=== PATIENT | female | born 2005 | race Caucasian/White ===

== ENCOUNTER 2025-03-04 20:21 | Emergency (ER) | payer SELFPAY ==
--- NOTE | ~2025-03-04 | CT_ITS ---
Non-contrast CT scan of the Abdomen and Pelvis Clinical indication: Right flank pain Technique: 2.5 mm axial scans were obtained through the abdomen and pelvis without intravenous or or al contrast. Dose reduction technique was used on this scan by utilizing automated exposure control a nd iterative reconstruction technique. The dose-length product (DLP) was 1465.81 mGy-cm. Findings: Images through the lung bases reveal no abnormalities. There is no evidence of renal or ureteral calculi. The kidneys and the ureters are nondilated. The liver, spleen, pancreas, gallbladder, and adrenals appear normal. There is no aortic aneurysm. There is no evidence of bowel obstruction. Images through the pelvis were performed. There is no evidence of ascites or lymphadenopathy. Urinary bladder unremarkable. No pelvic mass seen. Impression: No significant abnormality seen. Reviewed, dictated and finalized at [facility]. Impression: No significant abnormality seen.
[2025-03-04 20:30] VITALS: BP 150/100; PULSE 103; RESP 16; TEMP 36.5; O2SAT 99
[2025-03-05 00:30] VITALS: BP 125/70; PULSE 93; RESP 18; O2SAT 100
--- OUTSIDE RECORDS SUMMARY | 2025-03-05 00:37 | XMS_ITS | Continuity of Care Document ---
Author Organization [facility] Address [address] [place] [address] Phone Care Team Providers Care Master Planner Name Role Phone Bello PT, DPT, CHT, Magy Unavailable Unavailable Procedures Procedure Date HO w/o joints CF Advance Directives Directive Yes / No Effective Date File Name No Information Encounters Encounter Description Practice Location Reason(s) For Visit Diagnoses Date Provider Providers Copied on Encounter [facility], [facility], [place], [place], [id number], tel:[phone] [facility] No Information Bello Bhatti. . Referring Provider: Bekah Trejo, [address] [place] [address], [address]. tel:[phone] Family History Family Member Type Diagnosis Age At Onset No Information Payers Payer name Insurance type Covered alliance party ID Authoriza tion(s) Self Pay Full Charges Social History Type Description Quantity Date Captured Comments Sex Female Smoking Status No Information Chief Complaint And Reason For Visit No Information Reason For Referral Reason For Referral No Information History Of Present Illness Encounter Date Complaint History Of Prese nt Illness No Information Functional Status Date Functional Assessmen t No Information Instructions Date Instruction Additional Infor mation No Information Assessments Type Assessment Date No Information Patient Care Teams Name Effective Dates (start - stop) Status Members No Information
--- OUTSIDE RECORDS SUMMARY | 2025-03-05 00:37 | XMS_ITS | Encounter Summary ---
Author Organization [facility] Address [address] [place] [address] Care Team Providers Care Equine Vet Name Role Phone Levon Mitchell DO Primary Care Provider [phone] Encounter Details Date Type Department Care Team (Late st Contact Info) Description 06/28/2006 Orders Only [facility] Pediatrics - [address] [place] [address] [place] [address] Dominguez [address] [place] [phone] Social History Tobacco Use Types Packs/Day Years Used Date Smoking Tobacco: Never Assessed Comments Unknown Sex and Gender Information Value Date Recorded Sex Assigned at Not on file Legal Sex Female 4:46 AM AIRCONDITIONING ENGINEER Gender Identity Not on file Sexual Orientation Not on file documented as of this encounter Plan of Treatment Not on file documented as of this encounter Visit Diagnoses Not on filedocumented in this encounter Additional Health Concerns Infection Onset Date Last Indicated Resolved Time R/O COVID-19 08/21/2021 08/21/2021 08/22/2021 8:40 PM AIRCONDITIONING ENGINEER COVID-19 08/21/2021 08/21/2021 09/20/2021 1:16 AM AIRCONDITIONING ENGINEER documented as of this encounter Care Teams Equine Vet Relationship Specialty Start Date End Date Levon Mitchell DO PCP - General Pediatrics 12/22/09 documented as of this encounter
--- OUTSIDE RECORDS SUMMARY | 2025-03-05 00:38 | XMS_ITS | Encounter Summary ---
Author Organization [facility] Address [address] [place] [address] Care Team Providers Care Product Test Engineer Name Role Phone Levon Mitchell DO Primary Care Provider [phone] Encounter Details Date Type Department Care Team (Latest Contact Info) Description 09/30/2006 Outpatient Historical [facility] Pediatrics - [place] [address] [place] [address] [place] [address] [place] [address] Dominguez [address] [place] [phone] Impetigo (Primary Dx) Social History Tobacco Use Types Packs/Day Years Used Date Smoking Tobacco: Never Assessed Comments Unknown Sex and Gender Information Value Date Recorded Sex Assigned at Not on file Legal Sex Female 4:46 AM FISHING TOOL OPERATOR Gender Identity Not on file Sexual Orientation Not on file documented as of this encounter Plan of Treatment Not on file documented as of this encounter Visit Diagnoses Diagnosis Impetigo- Primary documented in this encounter Additional Health Concerns Infection Onset Date Last Indicated Resolved Time R/O COVID-19 08/21/2021 08/21/2021 08/22/2021 8:40 PM FISHING TOOL OPERATOR COVID-19 08/21/2021 08/21/2021 09/20/2021 1:16 AM FISHING TOOL OPERATOR documented as of this encounter Care Teams Product Test Engineer Relationship Specialty Start Date End Date Levon Mitchell DO PCP - General Pediatrics 12/22/09 documented as of this encounter
--- OUTSIDE RECORDS SUMMARY | 2025-03-05 00:38 | XMS_ITS | Encounter Summary ---
Author Organization [facility] Address [address] [place] [address] Care Team Providers Care Special Education Tutor Name Role Phone KarenLevon julio Primary Care Provider [phone] Encounter Details Date Type Department Care Team (Late st Contact Info) Description 09/30/2006 Orders Only [facility] Pediatrics - [address] [place] [address] Cinthya Piper NP NO ADDRESS ON FILE Social History Tobacco Use Types Packs/Day Years Used Date Smoking Tobacco: Never Assessed Comments Unknown Sex and Gender Information Value Date Recorded Sex Assigned at Not on file Legal Sex Female 4:46 AM SERVICES CLERK Gender Identity Not on file Sexual Orientation Not on file documented as of this encounter Progress Notes * Cinthya Piper NP - 01/09/2008 6:48 PM CDT PATIENT'S AGE: 1 yrs, 10 mths, 3 wks, 0 days VITALS: TEMP: 98??f Axillary PULSE: 106 Apical, Regular RESPIRATIONS: 18. WEIGHT: 9.0435 kg NURSE NAME: Caitie Clayton M //EDWIN SORTO ACCOMPANIED BY: Mother. HISTORY PROVIDED BY: Mother. ALLERGIES: CURRENT ALLERGY LIST: NKDA MEDICATIONS: RN/EDWIN reviewed medications. ZANTAC CHIEF COMPLAINT: The child is here for the following. RASH ON BACK NEAR UPPER DIAPER AREA, RASH ALSO ON THE DIAPER AREA HISTORY: Has a history of eczema that she uses Eucerin for and has a rash on her buttocks that won't clear. No oozing from the rash. She is constantly itching. Now has a new rash in her diaper area, closer to her vaginal area. PHYSICAL EXAM: CONSTITUTIONAL: GENERAL APPEARANCE: Healthy appearing, alert patient, normally nourished, developmentally normal and in no acute distress., not toxic EYES: CONJUNCTIVA/LIDS: Conjunctivae and lids appear normal. SKIN: multiple scabbed plaques on her upper buttocks, all in various stages of healing. 3 yellowishcrusty lesions. Pale red well circumscribed rash to both sides of her lower diaper area. OFFICE PROCEDURE: CULTURES: A skin culture was sent to the lab. ASSESSMENT/PLAN: [id number] MEDICATIONS: AUGMENTIN ORAL SUSPENSION WHEN RECONSTITUTED 400-57 MG/5ML, 1/2 tsp po bid x10d, 50 Dispensed, 10 Duration/Days Supply, status: NEW PRESCRIPTION, 09/30/2006. BACTROBAN EXTERNAL OINTMENT 2 % GRAMS, apply to affected areas on buttocks tid prn, 30 Dispensed, status: NEW PRESCRIPTION, 09/30/2006. TRIAMCINOLONE ACETONIDE EXTERNAL OINTMENT 0.1 %, Please compound with aquaphhor to make a compound containing a final concentration of TAC 0.01%. Apply topically bid to affected skin. Dispens 1 lb., 1 Dispensed, status: NEW PRESCRIPTION, 09/30/2006. LAB ORDERS: Order number: [id number] Test Ordered: CULTURE, AEROBIC WOUND W/SMEAR 8992 PATIENT EDUCATION: Questions were allowed to stated satisfaction. RETURN VISIT/GUIDANCE: Instructed to:Take OTC meds as directed Call office if concerned or if child is no better Return if symptoms are not resolved. Advised to keep wound/area clean, advised to maintain good handwashing. Electronically Signed by: Cinthya Piper RN,CPNP on Saturday, September 30, 2006 Electronically Signed by: Levon Mitchell DO on Sunday, October 01, 2006 documented in this encounter Plan of Treatment Not on file documented as of this encounter Visit Diagnoses Not on filedocumented in this encounter Additional Health Concerns Infection Onset Date Last Indicated Resolved Time R/O COVID-19 08/21/2021 08/21/2021 08/22/2021 8:40 PM SERVICES CLERK COVID-19 08/21/2021 08/21/2021 09/20/2021 1:16 AM SERVICES CLERK documented as of this encounter Care Teams Special Education Tutor Relationship Specialty Start Date End Date Levon Mitchell DO PCP - General Pediatrics 12/22/09 documented as of this encounter
--- OUTSIDE RECORDS SUMMARY | 2025-03-05 00:38 | XMS_ITS | Encounter Summary ---
Author Organization [facility] Address [address] [place] [address] Care Team Providers Care Program Management Manager Name Role Phone Levon Mitchell DO Primary Care Provider [phone] Encounter Details Date Type Department Care Team (Late st Contact Info) Description 02/21/2006 Orders Only [facility] Pediatrics - [place] [address] [place] [address] [place] [address] [place] [address] Dominguez [address] [place] [phone] Social History Tobacco Use Types Packs/Day Years Used Date Smoking Tobacco: Never Assessed Comments Unknown Sex and Gender Information Value Date Recorded Sex Assigned at Not on file Legal Sex Female 4:46 AM BULL CHAIN OPERATOR Gender Identity Not on file Sexual Orientation Not on file documented as of this encounter Progress Notes * Levon Mitchell DO - 05/28/2008 9:46 AM CDT TIME:03:25 pm PATIENT`S HOME PHONE: PATIENT`S WORK PHONE: PATIENT`S INSURANCE: [employer] WHO TOOK THE CALL: Sara Tapia M PATIENT'S AGE: 1 yrs, 3 mths, 2 wks, 1 day GENERAL INFORMATION PCP: gr. PEREZ PHONE NUMBER: [phone] ext [phone] WHO CALLED: Patient`s father called. [facility] NUMBER: [phone] PROBLEMS: Requests refill zantac but would like script amt divided into 2 labeled bottles--one for hoem, and one for daycare. SECTION 1: RN/LOUVER DOOR ASSEMBLER RESPONSE: gorge 02/21/06 at 03:51 pm Called pharmacy at 02/21/06 at 03:51 pm. to sai. Requested 2 labeled bottles. MEDICATIONS: ZANTAC ORAL SYRUP 75 MG/5ML, 0.7ml po tid, 30 Duration/Days Supply, status: NEW PRESCRIPTION, 02/21/2006. Electronically Signed by: Levon Mitchell DO on February * Levon Mitchell DO - 05/28/2008 9:46 AM CDT TIME:04:11 pm PATIENT`S HOME PHONE: PATIENT`S WORK PHONE: PATIENT`S INSURANCE: [employer] WHO TOOK THE CALL: Marcel Galo L GENERAL INFORMATION PCP: berenice WHO CALLED: Pharmacy called. [facility] NUMBER: [phone] SECTION 1: REQUESTED ACTION ribtiffanie 02/21/06 at 04:12 pm: MEDICATION REQUEST: zantac syrup, 63 ml, last fill 01-17-06 documented in this encounter Plan of Treatment Not on file documented as of this encounter Visit Diagnoses Not on filedocumented in this encounter Additional Health Concerns Infection Onset Date Last Indicated Resolved Time R/O COVID-19 08/21/2021 08/21/2021 08/22/2021 8:40 PM BULL CHAIN OPERATOR COVID-19 08/21/2021 08/21/2021 09/20/2021 1:16 AM BULL CHAIN OPERATOR documented as of this encounter Care Teams Program Management Manager Relationship Specialty Start Date End Date Levon Mitchell DO PCP - General Pediatrics 12/22/09 documented as of this encounter
--- OUTSIDE RECORDS SUMMARY | 2025-03-05 00:38 | XMS_ITS | Encounter Summary ---
Author Organization [facility] Address [address] [facility] [address] Attn: Epic Prelude ADT [place] [address] Care Team Providers Care Burn Out Tender Lace Name Role Phone Levon Mitchell DO Primary Care Provider [phone] Encounter Details Date Type Department Care Team (Latest Contact Info) Description 12/09/2006 Orders Only Mireille Whitfield DO [address] [place] [address] Social History Tobacco Use Types Packs/Day Years Used Date Smoking Tobacco: Never Assessed Comments Unknown Sex and Gender Information Value Date Recorded Sex Assigned at Not on file Legal Sex Female 4:46 AM MISSION COORDINATOR Gender Identity Not on file Sexual Orientation Not on file documented as of this encounter Progress Notes * Mireille Whitfield DO - 01/08/2008 4:44 PM CDT PATIENT'S AGE: 1 yr, 1 mth, 0 wks, 1 day VITALS: TEMP: 99.1??f Axillary PULSE: 116 Apical, Regular RESPIRATIONS: 18. WEIGHT: 9.4124 kg NURSE NAME: Caitie Clayton M ACCOMPANIED BY: Father. HISTORY PROVIDED BY: Father. ALLERGIES: CURRENT ALLERGY LIST: NKDA MEDICATIONS: Patient is taking no medications at present. CHIEF COMPLAINT: COUGH, FEVER HISTORY: States on 12/05 pt had reddened, irritated eyes with some mucousy discharge--states eyes look a little better now. Past few days has had very runny nose and loose cough, which has gotten worse in past 24 hours. Temp today is 102.6. PHYSICAL EXAM: CONSTITUTIONAL: GENERAL APPEARANCE: Healthy appearing, alert patient, normally nourished, developmentally normal and in no acute distress. EYES: CONJUNCTIVA/LIDS: Conjunctivae and lids appear normal. PUPILS: Pupils equal and round. EARS, NOSE, MOUTH AND THROAT: EXTERNAL/EARS AND NOSE: Overall appearance normal without lesions or masses. EARS: BULGING TYMPANIC MEMBRANES NOTED BILATERALLY, EFFUSION PRESENT BILATERALLY, TYMPANIC MEMBRANES INFLAMED BILATERALLY, REDUCED LIGHT REFLEX. LANDMARKS PARTIALLY OBSCURED IN THE EARS BILATERALLY. NOSE (AND SINUS): No abnormality of the nose or sinuses is noted. ORAL: Inspection of gums, lips, palate, and dentition normal. No lesions or masses. Oral mucosa unremarkable with non-inflamed posterior pharynx. NECK: No lymphadenopathy noted. Supple. RESPIRATORY: coarse and tight throughout. Retracting and tachypneic. After first neb much improved aeration. Still mild retracting and tachypnea. After orapred and 2nd neb retracting and tachypnea resolved with excellent aeration. CARDIOVASCULAR: CARDIAC: Regular rhythm with no murmurs, rubs, gallops, or abnormal heart sounds. GASTROINTESTINAL: ABDOMEN: Soft, non-tender, without masses. Bowel sound active. LIVER/SPLEEN/KIDNEY: No hepatosplenomegaly. SKIN: INSPECTION: Good color, no rashes, birthmarks or lesions noted on arms, chest or abdomen. NEUROLOGIC: GENERAL APPEARANCE: Negative meningeal signs. CRANIAL NERVES: stripper preliminary II-XII grossly intact. ASSESSMENT/PLAN: 382.00-OTITIS MEDIA ACUTE SUPPURATIVE MEDICATIONS: AUGMENTIN ES-600 ORAL SUSPENSION WHEN RECONSTITUTED 600-42.9 MG/5ML, 1/2 tsp po bid x 10d, 10 Duration/Days Supply, status: NEW PRESCRIPTION, 12/09/2006. 786.07-WHEEZING MEDICATIONS: ORAPRED ORAL SOLUTION 15 MG/5ML, 1 tsp po qd x 4d, 4 Duration/Days Supply, status: NEW PRESCRIPTION, 12/09/2006. ALBUTEROL SULFATE INHALATION NEBULIZATION SOLUTION (2.5 MG/3ML) 0.083% BOXES, 1 vial with neb q4h prn, 1 Dispensed, status: NEW PRESCRIPTION, 12/09/2006. Home neb ordered hanna Gee, order faxed to Felicia. [facility]. LAB ORDERS: Order number: [id number] Test Ordered: INJ-PREDENISOLONE ORAL 5MG [id number] Order number: [id number] Test Ordered: NEBULIZER TREATMENT 2 UNITS [id number] RETURN VISIT/GUIDANCE: Cough and congestion instructions given, Pain relief discussed, advised to maintain good handwashing. Patient instructed to return in 3 days if not better. Patient is instructed to call with concerns or changes in condition. Patient is instructed to call with concerns or worries about condition. Electronically Signed by: Mireille Whitfield DO on Friday, December 15, 2006 * Mireille Whitfield DO - 01/08/2008 4:44 PM CDT SPECIALIST REFERRAL REQUEST DATE: DEC 09, 2006 Note created by: Renu Covington M 05:45 p Patient Name : JESSICA WILLIAM [address]: [address] [place] [address] D.O.B: 2005 SSN: Parent/Guardian if applicable: Patient Insurance: Policy#: Group #: Best To Call : work [phone] or cell [phone] Best Time to Call : morning or afternoon May We Leave Message At That Number : YES, LEAVE MESSAGE. Referring to: ENT ENT - [facility]. any [facility]'s ENT is fine. PLEASE SCHEDULE FOR: office visit Reason for referral: OM PATIENT DIAGNOSIS: . 382.00-OTITIS MEDIA ACUTE SUPPURATIVE CURRENT MEDICATION LIST: ZANTAC ORAL SYRUP 75 MG/5ML, 0.5ml po tid ZANTAC ORAL SYRUP 75 MG/5ML, 0.5ml po tid ZANTAC ORAL SYRUP 75 MG/5ML, 0.7ml po tid ZANTAC ORAL SYRUP 75 MG/5ML, 0.7ml po tid ZANTAC ORAL SYRUP 75 MG/5ML, 1ml po tid ZANTAC ORAL SYRUP 75 MG/5ML, 1ml po tid ZANTAC ORAL SYRUP 75 MG/5ML, 1ml po tid AUGMENTIN ES-600 ORAL SUSPENSION WHEN RECONSTITUTED 600-42.9 MG/5ML, 1/2 tsp po bid x 10d NYSTATIN EXTERNAL OINTMENT 839201 UNIT/GM, use topically qid prn with diaper changes AUGMENTIN ORAL SUSPENSION WHEN RECONSTITUTED 400-57 MG/5ML, 1/2 tsp po bid x10d BACTROBAN EXTERNAL OINTMENT 2 %, apply to affected areas on buttocks tid prn TRIAMCINOLONE ACETONIDE EXTERNAL OINTMENT 0.1 %, Please compound with aquaphhor to make a compound containing a final concentration of TAC 0.01%. Apply topically bid to affected skin. Dispens 1 lb. AURALGAN OTIC SOLUTION, 4 drops in painful ears every 4 hours as needed OMNICEF ORAL SUSPENSION WHEN RECONSTITUTED 125 MG/5ML, 1 tsp po q day for 10 days ORAPRED ORAL SOLUTION 15 MG/5ML, 1 tsp po qd x 4d ALBUTEROL SULFATE INHALATION NEBULIZATION SOLUTION (2.5 MG/3ML) 0.083%, 1 vial with neb q4h prn AUGMENTIN ES-600 ORAL SUSPENSION WHEN RECONSTITUTED 600-42.9 MG/5ML, 1/2 tsp po bid x 10d CURRENT ALLERGY LIST: NKDA ORDERING PHYSICIAN : MIREILLE WHITFIELD DO PRIORITY OF REFERRAL: 2-7 DAYS. PLease send all office notes and abx hx relating to OMs for the past 2 yrs. OFFICE TAPE FOLDING MACHINE OPERATOR & PHONE: Renu Covington M FOR SCHEDULING USE ONLY FIRST ATTEMPT Date:DEC 10, 2006 Mary Vásquez J 09:06 a Spoke with Patient.' s dad at work and did a 3way APPOINTMENT DATE : 12/19/2006 ( @ 11:[address] Devine) December 10, 2006 09:06 am Referral number: none needed [email or web address] 12/10/2006 09:07 a Referral/Pre-auth communicated: Referral faxed to fax number. [phone] documented in this encounter Plan of Treatment Not on file documented as of this encounter Visit Diagnoses Not on filedocumented in this encounter Additional Health Concerns Infection Onset Date Last Indicated Resolved Time R/O COVID-08/21/2021 08/21/2021 08/22/2021 8:40 PM MISSION COORDINATOR COVID-08/21/2021 08/21/2021 09/20/2021 1:16 AM MISSION COORDINATOR documented as of this encounter Care Teams Burn Out Tender Lace Relationship Specialty Start Date End Date Levon Mitchell DO PCP - General Pediatrics 12/22/09 documented as of this encounter
--- OUTSIDE RECORDS SUMMARY | 2025-03-05 00:38 | XMS_ITS | Encounter Summary ---
Author Organization [facility] Address [address] [place] [address] Care Team Providers Care Parliamentary Archivist Name Role Phone Levon Mitchell DO Primary Care Provider [phone] Encounter Details Date Type Department Care Team (Late st Contact Info) Description 01/17/2006 Outpatient Historical [facility] Pediatrics - [address] [place] [address] [place] [address] Doming[address] [place] [phone] Social History Tobacco Use Types Packs/Day Years Used Date Smoking Tobacco: Never Assessed Comments Unknown Sex and Gender Information Value Date Recorded Sex Assigned at Not on file Legal Sex Female 4:46 AM GRADUATE CIVIL ENGINEER Gender Identity Not on file Sexual Orientation Not on file documented as of this encounter Plan of Treatment Not on file documented as of this encounter Visit Diagnoses Not on filedocumented in this encounter Additional Health Concerns Infection Onset Date Last Indicated Resolved Time R/O COVID-19 08/21/2021 08/21/2021 08/22/2021 8:40 PM GRADUATE CIVIL ENGINEER COVID-19 08/21/2021 08/21/2021 09/20/2021 1:16 AM GRADUATE CIVIL ENGINEER documented as of this encounter Care Teams Parliamentary Archivist Relationship Specialty Start Date End Date Levon Mitchell DO PCP - General Pediatrics 12/22/09 documented as of this encounter
--- OUTSIDE RECORDS SUMMARY | 2025-03-05 00:38 | XMS_ITS | Encounter Summary ---
Author Organization [facility] Address [address] [facility] Attn: Epic Prelude ADT [place] [address] Care Team Providers Care Contract Administrator Name Role Phone KarenLevon julio DO Primary Care Provider [phone] Encounter Details Date Type Department Care Team (Latest Contact Info) Description 12/11/2006 Orders Only Mireille Mackay DO [address] [facility] [address] [place] [address] Social History Tobacco Use Types Packs/Day Years Used Date Smoking Tobacco: Never Assessed Comments Unknown Sex and Gender Information Value Date Recorded Sex Assigned at Not on file Legal Sex Female 4:46 AM NEURODIAGNOSTIC TECHNOLOGIST Gender Identity Not on file Sexual Orientation Not on file documented as of this encounter Progress Notes * Mireille Mackay DO - 01/08/2008 5:37 PM CDT TIME:10:15 am PATIENT`S HOME PHONE: PATIENT`S WORK PHONE: PATIENT`S INSURANCE: [employer] WHO TOOK THE CALL: Janie Agrawal L PATIENT'S AGE: 1 yr, 1 mth, 0 wks, 3 days GENERAL INFORMATION PCP: gr. PEREZ PHONE NUMBER: [phone] WHO CALLED: Patient`s mother called.amie CURRENT ALLERGY LIST: [facility] NUMBER: [phone]/gibran PROBLEMS: OV 12/09 and treated for OM/wheeze with antibiotic, oral steroid and neb txs. States pt isdoing 100% better. Today sees [place] cheesy patches inside pt's lips and cheeks, that don't wipe off with wet warm washcloth. Daycare states pt has thrush. Is taking feeds well. Wants note for daycare stating Ok for pt to be there today. SECTION 1: REQUESTED ACTION: abby 12/11/06 at 10:16 am NURSE PLEASE CALL: Patient requests a call from nurse. RN/ROLL SCALE WORKER RESPONSE: [facility] 12/11/06 at 11:22 am b/s 11 thrush protocol reviewed. Will call out script for oral nystatin. Will check with about note for daycare-- b/s 11 doesn't address if ok for pt to be at daycare today-- note ok?? DOCTOR`S RESPONSE: [facility] 12/11/06 at 11:35 am As long as protocol followed (cleaning,etc) can be at daycare. SECTION 2: RN/ROLL SCALE WORKER RESPONSE: gorge 12/11/06 at 11:40 am mom notified of above. Note faxed to daycare Called pharmacy at 12/11/06 at 11:47 am. [place] MEDICATIONS: NYSTATIN MOUTH/THROAT SUSPENSION 070469 UNIT/ML, 1 ml ea side of mouth qid, 60 Dispensed, status: NEW PRESCRIPTION, 12/11/2006. Electronically Signed by: Myrtle Felix on Monday, December 11, 2006 documented in this encounter Plan of Treatment Not on file documented as of this encounter Visit Diagnoses Not on filedocumented in this encounter Additional Health Concerns Infection Onset Date Last Indicated Resolved Time R/O COVID-19 08/21/2021 08/21/2021 08/22/2021 8:40 PM NEURODIAGNOSTIC TECHNOLOGIST COVID-19 08/21/2021 08/21/2021 09/20/2021 1:16 AM NEURODIAGNOSTIC TECHNOLOGIST documented as of this encounter Care Teams Contract Administrator Relationship Specialty Start Date End Date Levon Mitchell DO PCP - General Pediatrics 12/22/09 documented as of this encounter
--- OUTSIDE RECORDS SUMMARY | 2025-03-05 00:38 | XMS_ITS | Encounter Summary ---
Author Organization [facility] Address [address] [place] [address] Care Team Providers Care Editing Internship Name Role Phone Levon Mitchell DO Primary Care Provider [phone] Encounter Details Date Type Department Care Team (Late st Contact Info) Description 03/11/2007 Orders Only [facility] Pediatrics - [place] [address] [place] [address] [place] [address] [place] [address] Dominguez [address] [place] [phone] Social History Tobacco Use Types Packs/Day Years Used Date Smoking Tobacco: Never Assessed Comments Unknown Sex and Gender Information Value Date Recorded Sex Assigned at Not on file Legal Sex Female 4:46 AM MACHINE CLERICAL VERIFIER Gender Identity Not on file Sexual Orientation Not on file documented as of this encounter Progress Notes * Levon Mitchell DO - 01/07/2008 12:31 PM CDT TIME:08:42 am PATIENT`S HOME PHONE: PATIENT`S WORK PHONE: PATIENT`S INSURANCE: KAVEH WHO TOOK THE CALL: Dora Tejada A PATIENT'S AGE: 1 yr, 4 mths, 0 wks, 2 days GENERAL INFORMATION PCP: [id number]. ALTERNATIVE PHONE NUMBER: [phone] #[phone] WHO CALLED: Patient`s father called.[facility] NUMBER: [phone] [facility] PROBLEMS: Was on zantac for GERD until 06/24, weaned off and was doing well without it. APpears to be teething now, drooling and chewing on things. Yesterday dad noticed she spit up a little and she cried after it and made face like she bit into sour lemon and tried to wipe it off her tongue, crabby all night until dad gave her 1 tsp of mylanta, restless sleep all night. NO vomiting or diarrhea, afeb. No cold sx, no ear tug. Dad wonders if needs to restart zantac. SECTION 1: REQUESTED ACTION: aurelio 03/11/07 at 08:43 am NURSE PLEASE CALL: Patient requests a call from nurse. RN/PIPE FITTER STREET SERVICE RESPONSE: cameron 03/11/07 at 08:55 am Will check with and c/b ? DOCTOR`S RESPONSE: savannah 03/11/07 at 09:01 am ok to try SECTION 2: RN/PIPE FITTER STREET SERVICE RESPONSE: cameron 03/11/07 at 09:16 am Left message on patient`s recorder or with a family member 03/11/2007 at 09:16 am. SECTION 3: RN/PIPE FITTER STREET SERVICE RESPONSE: cameron 03/11/07 at 09:54 am Dad notified of above, to c/b if not improving. Also reviewed protocol for BS11 teething. Called pharmacy at 03/11/07 at 09:57 am. Rx called to [facility] MEDICATIONS: ZANTAC ORAL SYRUP 75 MG/5ML, 1ml po tid, 2 Fills, 30 Duration/Days Supply, status: NEW PRESCRIPTION, 03/11/2007. Electronically Signed by: Renu Covington on Sunday, March 11, 2007 documented in this encounter Plan of Treatment Not on file documented as of this encounter Visit Diagnoses Not on filedocumented in this encounter Additional Health Concerns Infection Onset Date Last Indicated Resolved Time R/O COVID-19 08/21/2021 08/21/2021 08/22/2021 8:40 PM MACHINE CLERICAL VERIFIER COVID-19 08/21/2021 08/21/2021 09/20/2021 1:16 AM MACHINE CLERICAL VERIFIER documented as of this encounter Care Teams Editing Internship Relationship Specialty Start Date End Date Levon Mitchell DO PCP - General Pediatrics 12/22/09 documented as of this encounter
--- OUTSIDE RECORDS SUMMARY | 2025-03-05 00:38 | XMS_ITS | Encounter Summary ---
Author Organization [facility] Address [address] [place] [address] Care Team Providers Care Green End Man Name Role Phone Levon Mitchell DO Primary Care Provider [phone] Encounter Details Date Type Department Care Team (Late st Contact Info) Description 01/17/2006 Outpatient Historical [facility] Pediatrics - [address] [place] [address] [place] [address] Dominguez [address] [place] [phone] Social History Tobacco Use Types Packs/Day Years Used Date Smoking Tobacco: Never Assessed Comments Unknown Sex and Gender Information Value Date Recorded Sex Assigned at Not on file Legal Sex Female 4:46 AM PLOW SHAKER Gender Identity Not on file Sexual Orientation Not on file documented as of this encounter Plan of Treatment Not on file documented as of this encounter Visit Diagnoses Not on filedocumented in this encounter Additional Health Concerns Infection Onset Date Last Indicated Resolved Time R/O COVID-19 08/21/2021 08/21/2021 08/22/2021 8:40 PM PLOW SHAKER COVID-19 08/21/2021 08/21/2021 09/20/2021 1:16 AM PLOW SHAKER documented as of this encounter Care Teams Green End Man Relationship Specialty Start Date End Date Levon Mitchell DO PCP - General Pediatrics 12/22/09 documented as of this encounter
--- OUTSIDE RECORDS SUMMARY | 2025-03-05 00:38 | XMS_ITS | Encounter Summary ---
Author Organization [facility] Address [address] [place] [address] Care Team Providers Care Static Balancer Name Role Phone Levon Mitchell DO Primary Care Provider [phone] Encounter Details Date Type Department Care Team (Late st Contact Info) Description 07/19/2006 Outpatient Historical [facility] Pediatrics - [address] [place] [address] [place] [address] Dominguez [address] [place] [phone] Social History Tobacco Use Types Packs/Day Years Used Date Smoking Tobacco: Never Assessed Comments Unknown Sex and Gender Information Value Date Recorded Sex Assigned at Not on file Legal Sex Female 4:46 AM GLASS OR MIRROR INSPECTOR Gender Identity Not on file Sexual Orientation Not on file documented as of this encounter Plan of Treatment Not on file documented as of this encounter Visit Diagnoses Not on filedocumented in this encounter Additional Health Concerns Infection Onset Date Last Indicated Resolved Time R/O COVID-19 08/21/2021 08/21/2021 08/22/2021 8:40 PM GLASS OR MIRROR INSPECTOR COVID-19 08/21/2021 08/21/2021 09/20/2021 1:16 AM GLASS OR MIRROR INSPECTOR documented as of this encounter Care Teams Static Balancer Relationship Specialty Start Date End Date Levon Mitchell DO PCP - General Pediatrics 12/22/09 documented as of this encounter
--- OUTSIDE RECORDS SUMMARY | 2025-03-05 00:38 | XMS_ITS | Encounter Summary ---
Author Organization [facility] Address [address] [place] [address] Care Team Providers Care Traffic Engineer Name Role Phone Levon Mitchell DO Primary Care Provider [phone] Encounter Details Date Type Department Care Team (Late st Contact Info) Description 12/02/2006 Outpatient Historical [facility] Pediatrics - [address] [place] [address] [place] [address] Dominguez [address] [place] [phone] Social History Tobacco Use Types Packs/Day Years Used Date Smoking Tobacco: Never Assessed Comments Unknown Sex and Gender Information Value Date Recorded Sex Assigned at Not on file Legal Sex Female 4:46 AM OCCUPATIONAL THERAPIST'S ASSISTANT Gender Identity Not on file Sexual Orientation Not on file documented as of this encounter Plan of Treatment Not on file documented as of this encounter Visit Diagnoses Not on filedocumented in this encounter Additional Health Concerns Infection Onset Date Last Indicated Resolved Time R/O COVID-19 08/21/2021 08/21/2021 08/22/2021 8:40 PM OCCUPATIONAL THERAPIST'S ASSISTANT COVID-19 08/21/2021 08/21/2021 09/20/2021 1:16 AM OCCUPATIONAL THERAPIST'S ASSISTANT documented as of this encounter Care Teams Traffic Engineer Relationship Specialty Start Date End Date Levon Mitchell DO PCP - General Pediatrics 12/22/09 documented as of this encounter
--- OUTSIDE RECORDS SUMMARY | 2025-03-05 00:38 | XMS_ITS | Encounter Summary ---
Author Organization [facility] Address [address] [place] [address] Care Team Providers Care Rice Field Worker Name Role Phone Levon Mitchell DO Primary Care Provider [phone] Encounter Details Date Type Department Care Team (Late st Contact Info) Description 10/01/2007 Outpatient Historical [facility] Pediatrics - [place] [address] [place] [address] [place] [address] Chavez Renteria MD [address] [phone] Social History Tobacco Use Types Packs/Day Years Used Date Smoking Tobacco: Never Assessed Comments Unknown Sex and Gender Information Value Date Recorded Sex Assigned at Not on file Legal Sex Female 4:46 AM SHUTTLE HAND Gender Identity Not on file Sexual Orientation Not on file documented as of this encounter Plan of Treatment Not on file documented as of this encounter Visit Diagnoses Not on filedocumented in this encounter Additional Health Concerns Infection Onset Date Last Indicated Resolved Time R/O COVID-19 08/21/2021 08/21/2021 08/22/2021 8:40 PM SHUTTLE HAND COVID-19 08/21/2021 08/21/2021 09/20/2021 1:16 AM SHUTTLE HAND documented as of this encounter Care Teams Rice Field Worker Relationship Specialty Start Date End Date Levon Mitchell DO PCP - General Pediatrics 12/22/09 documented as of this encounter
--- OUTSIDE RECORDS SUMMARY | 2025-03-05 00:38 | XMS_ITS | Encounter Summary ---
Author Organization [facility] Address [address] [place] [address] Care Team Providers Care Business Machines Teacher Name Role Phone Levon Mitchell DO Primary Care Provider [phone] Encounter Details Date Type Department Care Team (Late st Contact Info) Description 12/09/2006 Outpatient Historical [facility] Pediatrics - [place] [address] [facility] [place] [address] Mireille Mackay DO [address] [facility] [address] [place] [address] Social History Tobacco Use Types Packs/Day Years Used Date Smoking Tobacco: Never Assessed Comments Unknown Sex and Gender Information Value Date Recorded Sex Assigned at Not on file Legal Sex Female 4:46 AM LABORER DAIRY FARM Gender Identity Not on file Sexual Orientation Not on file documented as of this encounter Plan of Treatment Not on file documented as of this encounter Visit Diagnoses Not on filedocumented in this encounter Additional Health Concerns Infection Onset Date Last Indicated Resolved Time R/O COVID-19 08/21/2021 08/21/2021 08/22/2021 8:40 PM LABORER DAIRY FARM COVID-19 08/21/2021 08/21/2021 09/20/2021 1:16 AM LABORER DAIRY FARM documented as of this encounter Care Teams Business Machines Teacher Relationship Specialty Start Date End Date Levon Mitchell DO PCP - General Pediatrics 12/22/09 documented as of this encounter
--- OUTSIDE RECORDS SUMMARY | 2025-03-05 00:38 | XMS_ITS | Encounter Summary ---
Author Organization [employer] [facility] Address [address] [place] [address] Care Team Providers Care Warehouse Production Worker Name Role Phone KamalaLevon arango Primary Care Provider [phone] Encounter Details Date Type Department Care Team (Late st Contact Info) Description 01/21/2006 Emergency [facility] Breanna Allen MD [address] [facility] [place] [address] Er, Authorized P NO ADDRESS ON FILE Fever (Primary Dx) Social History Tobacco Use Types Packs/Day Years Used Date Smoking Tobacco: Never Assessed Comments Unknown Sex and Gender Information Value Date Recorded Sex Assigned at Not on file Legal Sex Female 4:46 AM MAJOR CASE DETECTIVE Gender Identity Not on file Sexual Orientation Not on file documented as of this encounter Plan of Treatment Not on file documented as of this encounter Procedures Procedure Name Priority Date/Time Associated Diagnosis Comments CBC WITH DIFFERENTIAL Routine 01/21/2006 5:25 PM CDT CBC WITH DIFFERENTIAL Routine 01/21/2006 5:25 PM CDT CBC WITH DIFFERENTIAL Routine 01/21/2006 5:25 PM CDT documented in this encounter Results * (ABNORMAL) CBC WITH DIFFERENTIAL (01/21/2006 5:25 PM CDT) NEUTROPHIL ABSOLUTE 1.21 K/uL INTERFACE SYSTEM LYMPHOCYTE ABSOLUTE 9.13 K/uL INTERFACE SYSTEM MONOCYTE ABSOLUTE 0.44 K/uL INTERFACE SYSTEM EOSINOPHIL ABSOLUTE 0.22 K/uL INTERFACE SYSTEM BASOPHILS ABSOLUTE 0.00 K/uL INTERFACE SYSTEM NEUTROPHILS, SEG 11(L) 16 - 60 % INTERFACE SYSTEM LYMPHOCYTES 78(H) 20 - 70 % INTERFAC E SYSTEM MONOCYTES 4 0 - 7 % INTERFACE SYSTEM EOSINOPHILS 2 0 - 8 % INTERFAC E SYSTEM BASOPHILS 0 0 - 1 % INTERFACE SYSTEM ATYPICAL LYMPHOCYTE 5 0 - 5 % INTERFACE SYSTEM PLATELET EST. Consistent w/ count Normal INTERFACE SYSTEM HYPOCHROMIA Slight INTERFAC E SYSTEM 01/21/2006 5:25 PM CDT Breanna Osborn MD HEMATOLOGY ORDERABLES Jaz l Result Performing Organization Address [facility] de Phone Number INTERFACE SYSTEM Refer to clinic/hospital department * CBC WITH DIFFERENTIAL (01/21/2006 5:25 PM CDT) Pathologist [facility] NRBC 0 <=0 /100 WBC INTERFACE SYSTEM 01/21/2006 5:25 PM CDT Breanna Osborn MD HEMATOLOGY ORDERABLES Jaz l Result Performing Organization Address [facility] de Phone Number INTERFACE SYSTEM Refer to clinic/hospital department * (ABNORMAL) CBC WITH DIFFERENTIAL (01/21/2006 5:25 PM CDT) Pathologist [facility] WBC 11.0 6.0 - 17.5 K/uL INTERFACE SYSTEM RBC 3.36 2.70 - 4.90 M/uL INTERFACE SYSTEM HEMOGLOBIN 9.8 9.0 - 14.0 g/dL INTERFACE SYSTEM HEMATOCRIT 28.3 28.0 - 42.0 % INTERFACE SYSTEM MCV 84.2 74.0 - 115.0 fL INTERFACE SYSTEM MCH 29.2(L) 33.0 - 39.0 pg INTERFACE SYSTEM MCHC 34.6 31.0 - 37.0 % INTERFACE SYSTEM RDW 14.0 11.5 - 14.5 % INTERFACE SYSTEM RDW-STDEV 43.5 37.1 - 48.7 fL INTERFACE SYSTEM PLATELETS 420(H) 140 - 350 K/uL INTERFACE SYSTEM MPV 10.3 9.3 - 12.4 fL INTERFACE SYSTEM 01/21/2006 5:25 PM CDT us Breanna Osborn MD HEMATOLOGY ORDERABLES aJz craig Result INTERFACE SYSTEM Refer to clinic/hospital department documented in this encounter Visit Diagnoses Diagnosis Fever and other physiologic disturbances of temperature regulation- Primary documented in this encounter Additional Health Concerns Infection Onset Date Last Indicated Resolved Time R/O COVID-19 08/21/2021 08/21/2021 08/22/2021 8:40 PM MAJOR CASE DETECTIVE COVID-19 08/21/2021 08/21/2021 09/20/2021 1:16 AM MAJOR CASE DETECTIVE documented as of this encounter Care Teams Warehouse Production Worker Relationship Specialty Start Date End Date Levon Mitchell DO PCP - General Pediatrics 12/22/09 documented as of this encounter
--- OUTSIDE RECORDS SUMMARY | 2025-03-05 00:38 | XMS_ITS | Clinical Summary ---
Author Organization [facility] Administrative Offices Address [address] [place] [address] Care Team Providers [employer] Name Role Phone Levon Mitchell Aria Primary Care Provider [phone] Allergies Active Allergy Reactions Criticality Noted Date Comments Cashew Nut Nausea and Vomiting,Swelling High 05/25/2022 Mom reports this happened when pt was 6 yrs old. No Known Allergies 2005 Nut Flavor Unknown 06/04/2023 [place]as Itching Low 05/25/2022 Throat itchy/tingling Medications cetirizine (ZYRTEC) 10 mg tablet Take 10 mg by mouth daily. Active aspirin-acetami nophen-caffeine (EXCEDRIN EXTRA STRENGTH) 250-250-65 mg Tablet Take 1 Tablet by mouth every 4 hours as needed for Headaches. Active azelastine-flut icasone 137-50 mcg/spray Borger, Non-Aerosol One squirt on each side of nose three times daily 2 Active EPINEPHrine (EPIPEN) 0.3 mg/0.3 mL Auto-Injector Inject 0.3 mL (0.3 mg) by intramuscular injection 1 time daily as needed for Anaphylaxis. 1 Each 2 Active albuterol sulfate HFA 90 mcg/actuation aerosol inhaler Take 2 Puffs by inhalation every 4 hours. 3 Active EPINEPHrine (EpiPen) 0.3 mg/0.3 mL Auto-Injector Inject 0.3 mL by intramuscular injection one time only. 3 Active diphenhydrAMINE (BENADRYL) 25 mg capsule Take 2 Capsules by mouth. 3 Active triamcinolone acetonide (Nasacort) 55 mcg nasal spray Administer 2 Sprays in each nostril every 24 hours. 3 Active ibuprofen (MOTRIN) 800 mg tablet Take 1 Tablet (800 mg) by mouth every 8 hours as needed for Pain, Mild. 20 Tablet 5 Active cetirizine 0.24 % Dropperette 0 2 Active ondansetron (ZOFRAN ODT) 4 mg Tablet, Rapid Dissolve Take 1 Tablet (4 mg) by mouth every 8 hours as needed for Nausea/Emesis. Dissolve tablet on top of tongue, then swallow with saliva. 12 Tablet 1 5 Active rizatriptan (Maxalt-MANAGER CONTACT) 10 mg Tablet, Rapid DissolveIndicat ions:Intractabl e headache, unspecified chronicity pattern, unspecified headache type Place 1 Tablet (10 mg) inside cheek every 2 hours as needed for Migraine. may repeat in 2 hours; max dose 30mg in 24 hours 8 Tablet 5 Active topiramate (TOPAMAX) 25 mg tablet Take 25 mg by mouth 2 times daily. Taking 2 tablets twice daily Active Active Problems Patient Care Coordination No te Formatting of this note migh t be different from the original. Akira Motley MD--Printing Supervisor ([facility]) Problem Noted Date Diagnosed Date Obstructive sleep apnea (adult) (pediatric) 11/18 Dizziness 12/11/2024 Mixed hyperlipidemia 12/11/2024 Adverse reaction to food 12/31/2022 Acute pain of right knee 03/31/2020 Effusion of right knee 03/31/2020 Psoriasis 06/28/2008 Resolved Problems Problem Noted Date Diagnosed Date Resolved Date Allergic rhinitis 06/28/2008 11/11/2010 Unspecified viral infection, in conditions classified elsewhere and of unspecified site 10/01/2007 06/28/2008 Routine infant or child health check 06/20/2007 06/28/2008 Acute suppurative otitis med ia without spontaneous rupture of eardrum 12/09/2006 Need for other specified pro phylactic vaccination against single bacterial disease 12/09/2006 06/28/2008 Need for prophylactic vaccin ation and inoculation against varicella 12/09/2006 06/28/2008 Need for prophylactic vaccin ation with ycjmjsj-nyeob-avnfxsw (MMR) vaccine 12/09/200606/19 Wheezing 12/09/2006 12/22/2009 Contact dermatitis and other eczema, due to unspecified cause 10/23/2006 11/11/2010 Impetigo 09/30/2006 06/28/2008 Need for prophylactic vaccin ation and inoculation against influenza 07/19/2006 06/28/2008 Other follow-up examination(V67.59) 07/19/2006 06/28/2008 Diaper or napkin rash 07/03/20062007 Rash and other nonspecific skin eruption 05/02/2006 06/28/2008 Acute pharyngitis 03/11/2006 06/28/2008 Dysuria 01/21/2006 06/28/2008 Fever, unspecified 01/21/2006 8 Overview (09/13/2010): Updating IMO/ICD9 Code and Description Need for prophylactic vaccin ation against Streptococcus pneumoniae (pneumococcus) 01/18/2006 06/28/2008 Need for prophylactic vaccin ation and inoculation against poliomyelitis 01/18/20062007 Need for prophylactic vaccin ation and inoculation against viral hepatitis 01/18/200606/19 Need for prophylactic vaccin ation against Hemophilus influenza type B (Hib) 01/18/20062007 Need for prophylactic vaccin ation with combined qkrviiujql-khovzkr-adirmabmd (DTP) vaccine 01/18/2006 06/28/2008 Esophageal reflux 2005 06/28/2008 Encounters Date Type Department Care Team Description 03/03/2025 External Device Data [facility] ABSTRACTION Provider, Abstract 02/02/2025 External Device Data [facility] ABSTRACTION Provider, Abstract 01/12/2025 External Device Data [facility] ABSTRACTION Provider, Abstract 01/08/2025 External Device Data [facility] ABSTRACTION Provider, Abstract 01/06/2025 External Device Data [facility] ABSTRACTION Provider, Abstract 01/06/2025 External Device Data [facility] ABSTRACTION Provider, Abstract 12/11/2024 10:15 AM CDT Office Visit [facility] - [id number] [place] [address] Akira Motley MD Dizziness (Primary Dx); Mixed hyperlipidemia 12/07/2024 8:15 PM CDT - 12/07/2024 11:59 PM CDT Hospital Encounter [facility] [id number] [address] [place] [address] Neil Cintron MD Discharge Disposition: Home or Self Care from Last 3 Months Immunizations Immunization Administration Dates Next Due (ACTHIB/HIBERIX)(2 MOS-5 YRS /6 WKS-4 YRS) HAEMOPHILUS INFLUENZAE TYPE B VACCINE (HIB), PRP-T CONJUGATE, 4 DOSE, 0.5 ML IM 06/20/2007,05/27/2006,04/15/2006,01/17 (ADACEL/BOOSTRIX)(10 YR UP) TDAP VACCINE, 0.5ML, IM 12/06/2016 (BEXSERO)(10-25 YR) MENINGOC OCCAL RECOMBIANT PROTEIN AND OUTER MEMBRANE VESICLE VACCINE, SEROGROUP B MENB-4C, 2 DOSE IM 03/26/2024 (GARDASIL 9)(9-45 YRS) HUMAN PAPILLOMAVIRUS VACCINE, TYPES 6, 11, 16, 18, 31, 33, 45, 52, 58, NONAVALENT (9VHPV), 2 OR 3 DOSE, IM 09/22/2018,12/06/2016 (HAVRIX/VAQTA)(12 MO-18 YRS) HEPATITIS A VACCINE 0.5 ML PED/ADOL 2 DOSE, IM 12/02/2006 (INFANRIX)(6 WKS-6 YRS) DIPT HERIA, TETANUS TOXOIDS, AND ACCELLULAR PERTUSSIS VACCINE (DTAP), 0.5 ML IM 11/09/2010,06/20/2007,05/27/2006,04/15,01/17/2006 (IPOL)(6 WKS AND UP) POLIOVI LORI VACCINE, INACTIVATED (IPV), 3 DOSE, SUBCUT OR IM 11/09/2010,03/06/2007,04/15/2006,01/17 (M-M-R II/PRIORIX)(12 MO UP) MEASLES, MUMPS AND RUBELLA VIRUS VACCINE, 0.5 ML IM/SUBCUT 11/09/2010 (MENQUADFI)(2 YRS UP) MENING OCOCCAL POLYSACCHARIDE VACCINE A,C,Y,W-135, TT CONJUGATE (PF) 10 MCG/0.5 ML IM SOLUTION 11/09/2022 (PROQUAD)(12 MOS-12 YRS)CHRIS LES, MUMPS, RUBELLA, AND VARICELLA VIRUS VACCINE. 0.5 ML, SUBCUT 12/02/2006 (RECOMBIVAX HB/ENGERIX-B)(0- 19 YRS) HEPATITIS B VACCINE 5 MCG/0.5 ML OR 10 MCG/0.5 ML PED OR ADOL 3 DOSE (PF), IM 08/22/2006,01/17/2006,2005 (VARIVAX)(12 MOS UP)VARICELL A VIRUS VACCINE (PF) 0.5 ML, SUB CUT 11/09/2010 Hepatitis A Vaccine Ped Adol IM 2 Dose VFC 06/28/2008 INFLUENZA VACCINE QUADRIVALE NT 6 MOS UP PF IM 05/26/2018 Influenza Vaccine Quad Split 3+ Yrs PF IM VFC 06/07/2014 Influenza Vaccine Split 3+ Yrs PF IM 08/06/2011, 08/10/2010 Influenza Vaccine Split 6-35 Mo IM 06/20/2007,,06/17/2006 Influenza Vaccine Split 6-35 Mo PF IM 07/10/2010 Influenza Vaccine Split 6-35 Mo PF IM VFC 06/28/2008 Meningococcal A Conjugate Vaccine IM 12/06/2016 Pneumococcal 7-valent conjug ate vaccine IM 03/06/2007,12/02/2006,05/27/2006,04/15,01/17/2006 Family History Medical History Relation Name Comments Asthma Father Asthma Mother Healthy Mother h/o allergic rh initis Hypertension Mother Breast Cancer Neg Hx Colon Cancer Neg Hx Ovarian Cancer Neg Hx Relation Name Status Comments Father Alive Mother Alive Social History Tobacco Use Types Packs/Day Years Used Date Smoking Tobacco: Never Smokeless Tobacco: Never Tobacco Cessation:Counseling Given: Not Answered Alcohol Use Standard Drinks/Week Comments No 0 (1 standard drink = 0.6 oz pur e alcohol) Comments No Sex and Gender Information Value Date Recorded Sex Assigned at Not on file Legal Sex Female 4:46 AM [employer] Gender Identity Not on file Sexual Orientation Not on file Last Filed Vital Signs Vital Sign Reading Time Taken Comments Blood Pressure 136/80 12/11/2024 10:14 AM CDT Pulse 98 12/11/2024 10:14 AM CDT Temperature 36.6 C (97.8 F) 11/10/2024 2:07 PM CDT Respiratory Rate 18 11/10/2024 2:07 PM CDT Oxygen Saturation 98% 12/11/2024 10: 14 AM CDT Inhaled Oxygen Concentration - - Weight 100.9 kg (222 lb 6.4 oz) 025 10:14 AM CDT Height 175.3 cm (5' 9) 12/11/2024 10:1 4 AM CDT Head Circumference 56 cm 04/30/2019 3:15 PM CDT Body Mass Index 32.84 12/11/2024 10:14 AM CDT Plan of Treatment Health Maintenance Due Date Last Done Comments CHLAMYDIA SCREENING (ANNUAL) 11-24 YEARS 2016 COVID-19 Vaccine (3 - 2023-2 5 season) 2024 01/23/2021, 01/02/2021 INFLUENZA VACCINE (#1) 2025 8, 06/07/2014, 08/06/2011, Additional history exists Preventative Visit-Managed Medicaid 03/27/2025 03/26/2024, 11/09/2022, 10/19/2021, Additional history exists DTAP/TDAP/TD VACCINES (7 - T d or Tdap) 12/06/2026 12/06/2016, 11/09/2010, 06/20/2007, Additional history exists HEPATITIS B VACCINES Completed 08/22/2006, 01/17/2006, 2005 HPV VACCINES Completed 09/22/2018, 12/06/2016 Procedures Procedure Name Priority Date/Time Associated Diagnosis Comments MI ECG ROUTINE ECG W/LEAST 12 LDS W/I&R Routine 12/11/2024 10:15 AM CDT Dizziness POLYSOMNOGRAPHY 4 OR MORE PARAMETERS WITH CPAP Routine 12/07/2024 8:15 PM CDT Obstructive sleep apnea (adult) (pediatric) from Last 3 Months Results * MI ECG ROUTINE ECG W/LEAST 12 LDS W/I&R (12/11/2024 10:15 AM CDT) Narrative [facility] - 12/11/2024 10:15 AM CDT Akira Motley MD 12/11/2024 10:54 AM EKG Date/Time: 12/11/2024 10:15 AM Performed by: Akira Motley MD Authorized by: Akiar Motley MD Comments: ST 115 Procedure Note Akira Motley MD - 12/11/2024 10:[address] [facility] New Patient Evaluation Patient Name: Jessica Meneses : 2005 12/11/2024 Chief Complaint Patient presents with Establish Care Patient denies chest pain, shortness of breath, swelling in legs,headaches.She reports dizziness and occasional lightheadedness. The medical record reflects the History of Present Illness as obtained bymyself in discussion with the patient. Dear Dr. Mitchell, [facility], DO: I had the pleasure of meeting Jessica Meneses in consultation today. Asyou recall, this pleasant 19 y.o. female has migraines, prior syncope andconcussion Oct 2024, with persistent dizziness and higher BP since thattime. Lipid panel Oct 2024 sig abnormal. Just had sleep study for OSAeval per her neurologist Neil Cintron, results not yet available. Speaking with the patient today, she reports still having dizziness whenturning her head, lightheaded or woozy sensation, also with standing upabruptly, no problem with bright lights, no change in headaches frombefore the trauma, never had imaging of her brain, but with lab tests shewas sent for cardiology evaluation. Seeing her neurologist next month, noimprovement or worsening of dizziness over the 4-5 wks since her trauma.Was having GI symptoms the night before the syncopal episode, otherwise nopreceding CP, palpitations, leg swelling, or dyspnea. Mild intermittentasthma not bothersome, occ uses inhaler. Head pounding and room wasspinning just before the syncope, but not a regular problem. Does notknow much about her family history, grandparents adopted but no prematureCAD events in first degree relatives-- one grandfather has stents at anolder age. Past Medical History: Diagnosis Date Allergy COVID-19 virus detected 08/21/2021 08/21/2021 Eczema H/O seasonal allergies Psoriasis Past Surgical History: Procedure Laterality Date HX TYMPANOSTOMY 2006 Social History Social History Tobacco Use Smoking status: Never Smokeless tobacco: Never Substance Use Topics Alcohol use: No Alcohol/week: 0.0 standard drinks of alcohol Family History Problem Relation Name Age of Onset Asthma Father Healthy Mother h/o allergic rhinitis Asthma Mother Hypertension Mother Breast Cancer Neg Hx Ovarian Cancer Neg Hx Colon Cancer Neg Hx Medications Current Outpatient Medications Medication Sig Dispense Refill topiramate (TOPAMAX) 25 mg tablet Take 25 mg by mouth 2 times daily.Taking 2 tablets twice daily rizatriptan (Maxalt-MANAGER CONTACT) 10 mg Tablet, Rapid Dissolve Place 1 Tablet (10mg) inside cheek every 2 hours as needed for Migraine. may repeat in 2hours; max dose 30mg in 24 hours 8 Tablet 0 diphenhydrAMINE (BENADRYL) 25 mg capsule Take 2 Capsules by mouth. dbxcbuo-tegqydrxupwhw-uyiglclu (EXCEDRIN EXTRA STRENGTH) 250-250-65 mgTablet Take 1 Tablet by mouth every 4 hours as needed for Headaches. cetirizine (ZYRTEC) 10 mg tablet Take 10 mg by mouth daily. cetirizine 0.24 % Dropperette 0 ondansetron (ZOFRAN ODT) 4 mg Tablet, Rapid Dissolve Take 1 Tablet (4 mg)by mouth every 8 hours as needed for Nausea/Emesis. Dissolve tablet on topof tongue, then swallow with saliva. 12 Tablet 1 ibuprofen (MOTRIN) 800 mg tablet Take 1 Tablet (800 mg) by mouth every 8hours as needed for Pain, Mild. 20 Tablet 0 EPINEPHrine (EpiPen) 0.3 mg/0.3 mL Auto-Injector Inject 0.3 mL byintramuscular injection one time only. triamcinolone acetonide (Nasacort) 55 mcg nasal spray Administer 2 Spraysin each nostril every 24 hours. albuterol sulfate HFA 90 mcg/actuation aerosol inhaler Take 2 Puffs byinhalation every 4 hours. azelastine-fluticasone 137-50 mcg/spray Borger, Non-Aerosol One squirt oneach side of nose three times daily EPINEPHrine (EPIPEN) 0.3 mg/0.3 mL Auto-Injector Inject 0.3 mL (0.3 mg)by intramuscular injection 1 time daily as needed for Anaphylaxis. 1 Each0 No current facility-administered medications for this visit. Review of Systems As per the HPI, and all other systems are reviewed and negative indetail. Physical Exam Blood pressure 136/80, pulse 98, height 5' 9 (1.753 m), weight 100.9 kg(222 lb 6.4 oz), SpO2 98%, not currently . General: alert, cooperative, no distress, appears stated age Head: normocephalic, without obvious abnormality, atraumatic Eyes: conjunctivae/corneas clear, anicteric sclerae Neck: supple, symmetrical, no carotid bruit, no thyromegaly, JVP normal Mouth: moist mucous membranes Lungs: clear to auscultation bilaterally Heart: RRR without sig m/r/g heard Abdomen: soft, bowel sounds normal, no bruit Extremities: no cyanosis/clubbing, no edema Skin: no rash Neurologic: grossly nonfocal, alert and oriented and interactive Psych: Mood and affect normal Data: Lab Results Component Value Date NA 139 11/10/2024 K 4.3 11/10/2024 CO2 27 11/10/2024 CA 9.6 11/10/2024 BUN 17 11/10/2024 CREAT 0.74 11/10/2024 GLUCOSE 86 11/10/2024 Lab Results Component Value Date WBC 9.6 11/10/2024 HGB 13.5 11/10/2024 HGB 14.1 01/10/2022 PLT 298 11/10/2024 MCV 87.2 11/10/2024 MCV 86.2 01/10/2022 Lab Results Component Value Date/Time CHOLTOT 232 (H) 11/10/2024 03:11 PM HDL 41 (L) 11/10/2024 03:11 PM LDLCALC 11/10/2024 03:11 PM Comment: LDL cholesterol not calculated. Triglyceride levels greater than 400 mg/dL invalidate calculated LDL results. LDL-C is now calculated using the Jaylen-Mcnamara calculation, which is a validated novel method providing better accuracy than the Friedewald equation in the estimation of LDL-C. Jaylen SS et al. JESSICA. 2013;310(19): 2990-1247 (http://education.ticketea.Click4Ride/faq/XOS779) TRIGLYCERIDE 621 (H) 11/10/2024 03:11 PM Lab Results Component Value Date/Time HGBA1C 5.5 11/10/2024 03:12 PM EKG Date/Time: 12/11/2024 10:15 AM Performed by: Akira Motley MD Authorized by: Akira Motley MD Comments: ST [facility] Assessment: 19 y.o. female with migraines, prior concussions (5 times related tosports injuries), and syncope with another likely concussion Oct 2024,with persistent dizziness since that time. Lipid panel Oct 2024 sigabnormal, but likely an incidental findings. Just had sleep study for OSAeval per her neurologist Neil Cintron, results not yet available. Ithink her dizziness is most likely related to repeat head trauma, and sheneeds to d/w Neurology, in case other testing or evaluation is needed, oreven reduction in sports. Otherwise I think we should recheck a fastinglipid panel to determine whether her lipids are truly chronically thathigh or not, as the lack of family history of premature CAD and normalfunctional status at baseline suggest that cardiac problems are not likelyat the present time... Probably will need annual or oakco-7-ypxddwtbwajpql lipid panels, regardless of the fasting lipid results, givenher ability to have sig elevated lipids spontaneously! We agreed on the following Plan: 1) Discuss with your neurologist whether you need brain imaging or othertesting, or withholding of sports for a prolonged period, given yourpersistent dizziness and multiple concussions in the past. 2) For now, continue all of your current medications without change. 3) Repeat bloodwork for cholesterol measurement when you are fasting([facility] has several Saturday locations), to see if you truly have highenough cholesterol levels to warrant medical therapy. 4) Call if any cardiac symptoms arise, otherwise let's reassess in theCardiology office as needed. Thank you for allowing us to participate in the care of your patients.Please feel free to contact me with any questions or concerns. Sincerely, MD [facility] Akira Motley MD ECG ORDERABLES Final Result [facility] CLIA# [id number] [address], [address] [place] [address] * POLYSOMNOGRAPHY 4 OR MORE PARAMETERS WITH CPAP (12/07/2024 8:15 PM CDT) Santiago Marina Sifuentes D - 12/07/2024 8:15 PM CDT Kirit Hoffman MD 12/13/2024 3:37 PM Split Night PSG Note Patient Name: Jessica Meneses : 2005 Date of Study: 12/07/2024 Referring Physician: Neil Cintron MD [id number] [place] [address] Type of Montage: Respiratory This study was performed following all recommended and current standards and scoring per the [place] [employer] and AASM Scoring Manual. Polysomnography was conducted on the night of 12/07/2024. The following parameters were monitored: frontal, central and occipital EEG, electrooculogram (EOG), submentalis EMG, nasal and oral airflow, anterior tibialis EMG, body position and electrocardiogram. Additionally, thoracic and abdominal movements were recorded by inductance plethysmography. Oxygen saturation (SpO2) was monitored using a pulse oximeter. The tracing was scored using 30 second epochs. Hypopneas were scored per AASM definition (3% desaturation or arousal). Per insurance requirement, there was further scoring per CMS event criteria of >=4% oxygen desaturation for Hypopnea. SPLIT NIGHT POLYSOMNOGRAM INTERPRETATION SLEEP ARCHITECTURE AND EEG ANALYSIS: DIAGNOSTIC PORTION: The patient slept for a total of 128.5 minutes with the time in bed of 154 minutes for a sleep efficiency of 83.5%. Sleep latency was 16.5 minutes. REM sleep was not achieved in this portion of the night. The patient had 8.2% stage N1 sleep, 46.3% stage N2 sleep, 45.5% stage N3 sleep, and 0% stage REM sleep. No EEG abnormalities were noted on limited EEG montage. RESPIRATORY ANALYSIS: Using AASM criteria there were 3 Obstructive Apneas, 0 Central Apneas, 0 Mixed Apneas, 453 Hypopneas ; for an overall apnea-hypopnea index (AHI) of 26.1 per hour . Per CMS criteria, overall apnea-hypopnea index was 15.4 per hour; respiratory-related arousal index was 2.8 per hour. The overall respiratory disturbance index (RDI) was 18.4 per hour. Supine sleep AHI was 70.8 per hour. Minimum oxygen saturation was 90%. LEG MOVEMENTS: Periodic limb movement index was 1.9 per hour. Approximately 0.9/hr was associated with arousal. AROUSAL Total arousal index was 28.9 per hour; of which 21/hr was due to respiratory events, 0.9/hr was due to leg movements and 7/hr was due to spontaneous arousal. THERAPEUTIC PORTION The patient slept for a total of 242 minutes with the time in bed of 284 minutes for a sleep efficiency of 85.2%. Sleep latency was 22 minutes. REM sleep latency was 78 minutes. The patient had 3.3% stage N1 sleep, 67.8% stage N2 sleep, 13.2% stage N3 sleep, and 15.7% stage REM sleep. No EEG abnormalities were noted on limited EEG montage. CPAP was tested from minimum of 4 cm of water to a maximum of 8 cm of water. CPAP pressure of 8 cm of water was best at treating obstructive sleep apnea. At this setting, patient had 151 minutes of total sleep time including 22.5 minutes of supine and non-supine REM sleep. AHI at this setting was 0 per hour, RERA index was 0 per hour ; giving a total RDI of 0 per hour. Minimum oxygen saturation was 93%. LEG MOVEMENTS The patient had 3 periodic leg movements per hour of sleep, 0/hour associated with arousal. AROUSAL Total arousal index was 12.4 per hour; of which 2.4/hr was due to respiratory events, 1.5/hr was due to leg movements and 8.4/hr was due to spontaneous arousal. EKG showed normal sinus rhythm. Average heart rate was 70 bpm for the diagnostic portion and 65 bpm for the therapeutic portion. IMPRESSION: 1 This split night sleep study demonstrated moderate obstructive sleep apnea ( G47.33), worse in supine sleep. 2. CPAP settings of 4 - 8 cm of water were tested. CPAP setting of 8 cm water was optimal at treating obstructive sleep apnea. RECOMMENDATIONS: Suggest starting patient on CPAP at a setting of 8 cm of water using a small Airfit F20 full face interface.. Attending physician performed epoch by epoch review of raw data of the entire polysomnogram Electronically signed: Kirit Hoffman MD, 12/13/2024 3:18 PM Procedure Note Kirit Hoffman MD - 12/07/2024 8:15 PM CDT Split Night PSG Note Patient Name: Jessica Meneses : 2005 Date of Study: 12/07/2024 Referring Physician: Neil Cintron MD [id number] [place] [address] Type of Montage: Respiratory This study was performed following all recommended and current standardsand scoring per the [place] [employer] and AASM ScoringManual. Polysomnography was conducted on the night of 12/07/2024. The followingparameters were monitored: frontal, central and occipital EEG,electrooculogram (EOG), submentalis EMG, nasal and oral airflow, anteriortibialis EMG, body position and electrocardiogram. Additionally, thoracicand abdominal movements were recorded by inductance plethysmography.Oxygen saturation (SpO2) was monitored using a pulse oximeter. Thetracing was scored using 30 second epochs. Hypopneas were scored per AASMdefinition (3% desaturation or arousal). Per insurance requirement, therewas further scoring per CMS event criteria of >=4% oxygen desaturation forHypopnea. SPLIT NIGHT POLYSOMNOGRAM INTERPRETATION SLEEP ARCHITECTURE AND EEG ANALYSIS: DIAGNOSTIC PORTION: The patient slept for a total of 128.5 minutes with the time in bed of 154minutes for a sleep efficiency of 83.5%. Sleep latency was 16.5 minutes.REM sleep was not achieved in this portion of the night. The patient had 8.2% stage N1 sleep, 46.3% stage N2 sleep, 45.5% stage H0lndoq, and 0% stage REM sleep. No EEG abnormalities were noted on limitedEEG montage. RESPIRATORY ANALYSIS: Using AASM criteria there were 3 ObstructiveApneas, 0 Central Apneas, 0 Mixed Apneas, 453 Hypopneas ; for an overallapnea-hypopnea index (AHI) of 26.1 per hour . Per CMS criteria, overallapnea-hypopnea index was 15.4 per hour; respiratory-related arousal indexwas 2.8 per hour. The overall respiratory disturbance index (RDI) was 18.4per hour. Supine sleep AHI was 70.8 per hour. Minimum oxygen saturationwas 90%. LEG MOVEMENTS: Periodic limb movement index was 1.9 per hour. Approximately 0.9/hr wasassociated with arousal. AROUSAL Total arousal index was 28.9 per hour; of which 21/hr was due torespiratory events, 0.9/hr was due to leg movements and 7/hr was due tospontaneous arousal. THERAPEUTIC PORTION The patient slept for a total of 242 minutes with the time in bed of 284minutes for a sleep efficiency of 85.2%. Sleep latency was 22 minutes.REM sleep latency was 78 minutes. The patient had 3.3% stage N1 sleep, 67.8% stage N2 sleep, 13.2% stage D2ijwim, and 15.7% stage REM sleep. No EEG abnormalities were noted onlimited EEG montage. CPAP was tested from minimum of 4 cm of water to a maximum of 8 cm ofwater. CPAP pressure of 8 cm of water was best at treating obstructive sleepapnea. At this setting, patient had 151 minutes of total sleep timeincluding 22.5 minutes of supine and non-supine REM sleep. AHI at thissetting was 0 per hour, RERA index was 0 per hour ; giving a total RDI of0 per hour. Minimum oxygen saturation was 93%. LEG MOVEMENTS The patient had 3 periodic leg movements per hour of sleep, 0/hourassociated with arousal. AROUSAL Total arousal index was 12.4 per hour; of which 2.4/hr was due torespiratory events, 1.5/hr was due to leg movements and 8.4/hr was due tospontaneous arousal. EKG showed normal sinus rhythm. Average heart rate was 70 bpm for thediagnostic portion and 65 bpm for the therapeutic portion. IMPRESSION: 1 This split night sleep study demonstrated moderate obstructive sleepapnea ( G47.33), worse in supine sleep. 2. CPAP settings of 4 - 8 cm of water were tested. CPAP setting of 8 cmwater was optimal at treating obstructive sleep apnea. RECOMMENDATIONS: Suggest starting patient on CPAP at a setting of 8 cm of water using asmall [employer] F20 full face interface.. Attending physician performed epoch by epoch review of raw data of theentire polysomnogram Electronically signed: Kirit Hoffman MD, 12/13/2024 3:18 PM Neil Cintron MD [facility] ORDERABLES Final Result from Last 3 Months Insurance [facility] MEDICAID Member Subscriber Plan / Payer (Ef fective 2021-Present) Name:Jessica Meneses Relation to Subscriber:Self Name:Jessica Meneses Payer ID:Not on file Group ID:[id number] Type:FractureO Address: [place] [address] [facility] MEDICAID FORMERLY [facility] [place] [address] Care Teams [employer] Cafeteria Relationship Specialty Start Date End Date Levon Mitchell DO PCP - General Pediatrics 12/22/09
--- OUTSIDE RECORDS SUMMARY | 2025-03-05 00:38 | XMS_ITS | Encounter Summary ---
Author Organization [facility] Address [address] [place] [address] Care Team Providers Care Practical Nurse Clinical Coordinator Name Role Phone Levon Mitchell DO Primary Care Provider [phone] Encounter Details Date Type Department Care Team (Late st Contact Info) Description 10/23/2006 Outpatient Historical [facility] Pediatrics - [place] [address] [facility] [place] [address] Mireille Mackay DO [address] [facility] [address] [place] [address] Social History Tobacco Use Types Packs/Day Years Used Date Smoking Tobacco: Never Assessed Comments Unknown Sex and Gender Information Value Date Recorded Sex Assigned at Not on file Legal Sex Female 4:46 AM CHOKE REAMER Gender Identity Not on file Sexual Orientation Not on file documented as of this encounter Last Filed Vital Signs Vital Sign Reading Time Taken Comments Blood Pressure - - Pulse 112 10/23/2006 1:30 PM CHOKE REAMER Temperature 36.3 C (97.3 F) 10/23/2006 1:30 PM CHOKE REAMER Respiratory Rate 20 10/23/2006 1:30 PM CHOKE REAMER Oxygen Saturation - - Inhaled Oxygen Concentration - - Weight 9.27 kg (20 lb 7 oz) 10/23/2006 1:[address] Height - - Body Mass Index - - documented in this encounter Plan of Treatment Not on file documented as of this encounter Visit Diagnoses Not on filedocumented in this encounter Additional Health Concerns Infection Onset Date Last Indicated Resolved Time R/O COVID-19 08/21/202108/21/2021 08/22/2021 8:40 PM CHOKE REAMER COVID-08/21/2021 08/21/2021 09/20/2021 1:16 AM CHOKE REAMER documented as of this encounter Care Teams Practical Nurse Clinical Coordinator Relationship Specialty Start Date End Date Levon Mitchell DO PCP - General Pediatrics 12/22/09 documented as of this encounter
--- OUTSIDE RECORDS SUMMARY | 2025-03-05 00:38 | XMS_ITS | Encounter Summary ---
Author Organization [facility] Address [address] [place] [address] Care Team Providers Care Balance Assembler Name Role Phone Levon Mitchell DO Primary Care Provider [phone] Encounter Details Date Type Department Care Team (Late st Contact Info) Description 12/02/2006 Outpatient Historical [facility] Pediatrics - [address] [place] [address] [place] [address] Dominguez [address] [place] [address] [phone] Social History Tobacco Use Types Packs/Day Years Used Date Smoking Tobacco: Never Assessed Comments Unknown Sex and Gender Information Value Date Recorded Sex Assigned at Not on file Legal Sex Female 4:46 AM PLUMBER GASFITTER Gender Identity Not on file Sexual Orientation Not on file documented as of this encounter Plan of Treatment Not on file documented as of this encounter Visit Diagnoses Not on filedocumented in this encounter Additional Health Concerns Infection Onset Date Last Indicated Resolved Time R/O COVID-19 08/21/2021 08/21/2021 08/22/2021 8:40 PM PLUMBER GASFITTER COVID-19 08/21/2021 08/21/2021 09/20/2021 1:16 AM PLUMBER GASFITTER documented as of this encounter Care Teams Balance Assembler Relationship Specialty Start Date End Date Levon Mitchell DO PCP - General Pediatrics 12/22/09 documented as of this encounter
--- OUTSIDE RECORDS SUMMARY | 2025-03-05 00:38 | XMS_ITS | Encounter Summary ---
Author Organization [facility] Address [address] [place] [address] Care Team Providers Care Manual Tester Name Role Phone Levon Mitchell DO Primary Care Provider [phone] Encounter Details Date Type Department Care Team (Late st Contact Info) Description 09/29/[address] [facility] Pediatrics - [place] [address] [place] [address] [place] [address] [place] [address] Dominguez [address] [place] [phone] Social History Tobacco Use Types Packs/Day Years Used Date Smoking Tobacco: Never Assessed Comments Unknown Sex and Gender Information Value Date Recorded Sex Assigned at Not on file Legal Sex Female 4:46 AM APPRENTICE PHOTOGRAPHER Gender Identity Not on file Sexual Orientation Not on file documented as of this encounter Progress Notes * Levon Mitchell DO - 12/31/2007 12:14 PM CDT TIME:04:11 pm PATIENT`S HOME PHONE: PATIENT`S WORK PHONE: PATIENT`S INSURANCE: [employer] WHO TOOK THE CALL: Judith Campoverde J PATIENT'S AGE: 1 yr, 10 mths, 2 wks, 6 days GENERAL INFORMATION PCP: gr. PEREZ PHONE NUMBER: [phone] WHO CALLED: Patient`s mother called.Amie Patient reports no known allergies. PHARMACY NUMBER: [phone] PROBLEMS: States this afternoon sclera of one eye is slightly blood shot and eye is draining yellowmucousy discharge. States pt has occasional cough--denies runny/stuffy nose. No fever. NO swelling around eye. SECTION 1: REQUESTED ACTION: eugene 09/29/07 at 04:11 pm NURSE PLEASE CALL: Patient requests a call from nurse. RN/SIGNAL CIRCUIT DESIGNER RESPONSE: gorge 09/29/07 at 04:22 pm BS 11 eye with pus protocol. Will call vigamox to pharm. C/b sxs worsen/no better next 24 hours. Called pharmacy at 09/29/07 at 04:24 pm. to lul MEDICATIONS: VIGAMOX OPHTHALMIC SOLUTION 0.5 % BOTTLES, 2 gtts affected eye bid x 5 days., 1 Dispensed, status: NEW PRESCRIPTION, 09/29/2007. Electronically Signed by: Levon Mitchell DO on Saturday, September 29, 2007 documented in this encounter Plan of Treatment Not on file documented as of this encounter Visit Diagnoses Not on filedocumented in this encounter Additional Health Concerns Infection Onset Date Last Indicated Resolved Time R/O COVID-19 08/21/2021 08/21/2021 08/22/2021 8:40 PM APPRENTICE PHOTOGRAPHER COVID-19 08/21/2021 08/21/2021 09/20/2021 1:16 AM APPRENTICE PHOTOGRAPHER documented as of this encounter Care Teams Manual Tester Relationship Specialty Start Date End Date Levon Mitchell DO PCP - General Pediatrics 12/22/09 documented as of this encounter
--- OUTSIDE RECORDS SUMMARY | 2025-03-05 00:38 | XMS_ITS | Encounter Summary ---
Author Organization [facility] Address [address] [place] [address] Care Team Providers Care Cartographic Drafter Name Role Phone Levon Mitchell DO Primary Care Provider [phone] Encounter Details Date Type Department Care Team (Late st Contact Info) Description 05/27/2006 Outpatient Historical [facility] Pediatrics - [address] [place] [address] [place] [address] Dominguez [address] [place] [address] [phone] Social History Tobacco Use Types Packs/Day Years Used Date Smoking Tobacco: Never Assessed Comments Unknown Sex and Gender Information Value Date Recorded Sex Assigned at Not on file Legal Sex Female 4:46 AM ENTERTAINMENT MUSICIAN Gender Identity Not on file Sexual Orientation Not on file documented as of this encounter Plan of Treatment Not on file documented as of this encounter Visit Diagnoses Not on filedocumented in this encounter Additional Health Concerns Infection Onset Date Last Indicated Resolved Time R/O COVID-19 08/21/2021 08/21/2021 08/22/2021 8:40 PM ENTERTAINMENT MUSICIAN COVID-19 08/21/2021 08/21/2021 09/20/2021 1:16 AM ENTERTAINMENT MUSICIAN documented as of this encounter Care Teams Cartographic Drafter Relationship Specialty Start Date End Date Levon Mitchell DO PCP - General Pediatrics 12/22/09 documented as of this encounter
--- OUTSIDE RECORDS SUMMARY | 2025-03-05 00:38 | XMS_ITS | Encounter Summary ---
Author Organization [facility] Address [address] [place] [address] Care Team Providers Care Cilnical Scientist Name Role Phone Levon Mitchell DO Primary Care Provider [phone] Encounter Details Date Type Department Care Team (Late st Contact Info) Description 12/09/2006 Outpatient Historical [facility] Pediatrics - [place] [address] [facility] [place] [address] Mireille Mackay DO [address] [facility] [address] [place] [address] Social History Tobacco Use Types Packs/Day Years Used Date Smoking Tobacco: Never Assessed Comments Unknown Sex and Gender Information Value Date Recorded Sex Assigned at Not on file Legal Sex Female 4:46 AM MICA PLATE LAYER HAND Gender Identity Not on file Sexual Orientation Not on file documented as of this encounter Plan of Treatment Not on file documented as of this encounter Visit Diagnoses Not on filedocumented in this encounter Additional Health Concerns Infection Onset Date Last Indicated Resolved Time R/O COVID-19 08/21/2021 08/21/2021 08/22/2021 8:40 PM MICA PLATE LAYER HAND COVID-19 08/21/2021 08/21/2021 09/20/2021 1:16 AM MICA PLATE LAYER HAND documented as of this encounter Care Teams Cilnical Scientist Relationship Specialty Start Date End Date Levon Mitchell DO PCP - General Pediatrics 12/22/09 documented as of this encounter
--- OUTSIDE RECORDS SUMMARY | 2025-03-05 00:38 | XMS_ITS | Encounter Summary ---
Author Organization [facility] Address [address] [place] [address] Care Team Providers Care Telesales Agent Name Role Phone Levon Mitchell DO Primary Care Provider [phone] Encounter Details Date Type Department Care Team (Late st Contact Info) Description 11/12/2006 Outpatient Historical [facility] Pediatrics - [address] [place] [address] [place] [address] Dominguez [address] [place] [address] [phone] Social History Tobacco Use Types Packs/Day Years Used Date Smoking Tobacco: Never Assessed Comments Unknown Sex and Gender Information Value Date Recorded Sex Assigned at Not on file Legal Sex Female 4:46 AM AIR BAG BUFFER Gender Identity Not on file Sexual Orientation Not on file documented as of this encounter Plan of Treatment Not on file documented as of this encounter Visit Diagnoses Not on filedocumented in this encounter Additional Health Concerns Infection Onset Date Last Indicated Resolved Time R/O COVID-19 08/21/2021 08/21/2021 08/22/2021 8:40 PM AIR BAG BUFFER COVID-19 08/21/2021 08/21/2021 09/20/2021 1:16 AM AIR BAG BUFFER documented as of this encounter Care Teams Telesales Agent Relationship Specialty Start Date End Date Levon Mitchell DO PCP - General Pediatrics 12/22/09 documented as of this encounter
--- OUTSIDE RECORDS SUMMARY | 2025-03-05 00:38 | XMS_ITS | Encounter Summary ---
Author Organization [facility] Address [address] [facility] Attn: Epic Prelude ADT [place] [address] Care Team Providers Care Recreation Establishment Manager Name Role Phone Levon Mitchell DO Primary Care Provider [phone] Encounter Details Date Type Department Care Team (Latest Contact Info) Description 07/03/2006 Orders Only Mireille Mackay DO [address] [facility] [address] [place] [address] Social History Tobacco Use Types Packs/Day Years Used Date Smoking Tobacco: Never Assessed Comments Unknown Sex and Gender Information Value Date Recorded Sex Assigned at Not on file Legal Sex Female 4:46 AM FACILITY ATTENDANT Gender Identity Not on file Sexual Orientation Not on file documented as of this encounter Progress Notes * Mireille Mackay DO - 06/02/2008 12:25 AM CDT TIME:01:31 pm PATIENT`S HOME PHONE: PATIENT`S WORK PHONE: PATIENT`S INSURANCE: [employer] WHO TOOK THE CALL: Janie Murrell L // Halie BURROUGHS MA PATIENT'S AGE: 1 yrs, 7 mths, 3 wks, 3 days GENERAL INFORMATION PCP: GR. PEREZ PHONE NUMBER: [phone]. [phone] WHO CALLED: DAD IS LOUISE PROBLEMS: Went to on Sat.07/01 and dx with BOM, put on Amox. No improvement at all, temp 99-100,very fussy, usually takes 6 oz bottles and now just takes 2 oz, wakes up screaming at night, difficult to settle. Also having eczema flare ups, hydrocortisone not helping. Wants appt. SECTION 1: RN/SUPPLIER RELATIONSHIP DIRECTOR RESPONSE: cameron 07/03/06 at 01:49 pm Explained Amox often needs at least 48 hrs to kick in,this is her first OM and first time on abx, dad really wants appt, appt made. Electronically Signed by: Renu [place] on Saturday, July 03, 2006 * Mireille Mackay DO - 06/02/2008 12:22 AM CDT PATIENT'S AGE: 1 yrs, 7 mths, 3 wks, 3 days VITALS: TEMP: 98.2??f Axillary WEIGHT: 8.88367 kg UNABLE TO OBTAIN: Unable to obtain: pulse, respirations. REASON: crying, not cooperative. NURSE NAME: Migdalia Pena, N /// brayan murrell lpn ACCOMPANIED BY: Father. HISTORY PROVIDED BY: Father. ALLERGIES: CURRENT ALLERGY LIST: NKDA MEDICATIONS: RN/EDWIN reviewed medications. zantac, and amoxil CHIEF COMPLAINT: The child is here for bilateral earache. HISTORY: Went to on Sat.07/01 and dx with BOM, put on Amox. No improvement at all, temp 99-100, very fussy, usually takes 6 oz bottles and now just takes 2 oz, wakes up screaming at night, difficult to settle. Also having eczema flare ups, hydrocortisone not helping. PHYSICAL EXAM: CONSTITUTIONAL: GENERAL APPEARANCE: Healthy appearing, alert patient, normally nourished, developmentally normal and in no acute distress., not toxic EYES: CONJUNCTIVA/LIDS: Conjunctivae and lids appear normal. PUPILS: Pupils equal and reactive. EARS, NOSE, MOUTH AND THROAT: EXTERNAL/EARS AND NOSE: Overall appearance normal without lesions or masses. EARS: EFFUSION PRESENT BILATERALLY, TYMPANIC MEMBRANES INFLAMED BILATERALLY, REDUCED LIGHT REFLEX. LANDMARKS PARTIALLY OBSCURED IN THE EARS BILATERALLY. NOSE (AND SINUS): PURULENT NASAL DISCHARGE NOTED BILATERALLY. ORAL: Normal oropharynx. NECK: No lymphadenopathy noted. Supple. RESPIRATORY: Clear to auscultation. Normal respiratory effort. CARDIOVASCULAR: CARDIAC: Regular rhythm with no murmurs, rubs, gallops, or abnormal heart sounds. SKIN: mild candidal diaper rash NEUROLOGIC: GENERAL APPEARANCE: Negative meningeal signs. ASSESSMENT/PLAN: 382.00-OTITIS MEDIA ACUTE SUPPURATIVE MEDICATIONS: AUGMENTIN ES-600 ORAL SUSPENSION WHEN RECONSTITUTED 600-42.9 MG/5ML, 1/2 tsp po bid x 10d, 10 Duration/Days Supply, status: NEW PRESCRIPTION, 07/03/2006. 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 RETURN VISIT/GUIDANCE: Cough and congestion instructions given, Pain relief discussed, advised to keep wound/area clean. Patient instructed to return in 2 days if not better. Patient instructed to return in 2 weeks. Patient is instructed to call with concerns or changes in condition. Patient is instructed to call with concerns or worries about condition. Electronically Signed by: Mireille Mackay DO on Sunday, July 09, 2006 documented in this encounter Plan of Treatment Not on file documented as of this encounter Visit Diagnoses Not on filedocumented in this encounter Additional Health Concerns Infection Onset Date Last Indicated Resolved Time R/O COVID-19 08/21/2021 08/21/2021 08/22/2021 8:40 PM FACILITY ATTENDANT COVID-19 08/21/2021 08/21/2021 09/20/2021 1:16 AM FACILITY ATTENDANT documented as of this encounter Care Teams Recreation Establishment Manager Relationship Specialty Start Date End Date Levon Mitchell DO PCP - General Pediatrics 12/22/09 documented as of this encounter
--- OUTSIDE RECORDS SUMMARY | 2025-03-05 00:38 | XMS_ITS | Encounter Summary ---
Author Organization [facility] Address [address] [place] [address] Care Team Providers Care Metals Sales Representative Name Role Phone Levon Mitchell DO Primary Care Provider [phone] Encounter Details Date Type Department Care Team (Late st Contact Info) Description 03/06/2007 Outpatient Historical [facility] Pediatrics - [address] [place] [address] [place] [address] Dom[address] [place] [address] [phone] Social History Tobacco Use Types Packs/Day Years Used Date Smoking Tobacco: Never Assessed Comments Unknown Sex and Gender Information Value Date Recorded Sex Assigned at Not on file Legal Sex Female 4:46 AM PASTORAL ASSISTANT Gender Identity Not on file Sexual Orientation Not on file documented as of this encounter Plan of Treatment Not on file documented as of this encounter Visit Diagnoses Not on filedocumented in this encounter Additional Health Concerns Infection Onset Date Last Indicated Resolved Time R/O COVID-19 08/21/2021 08/21/2021 08/22/2021 8:40 PM PASTORAL ASSISTANT COVID-19 08/21/2021 08/21/2021 09/20/2021 1:16 AM PASTORAL ASSISTANT documented as of this encounter Care Teams Metals Sales Representative Relationship Specialty Start Date End Date Levon Mitchell DO PCP - General Pediatrics 12/22/09 documented as of this encounter
--- OUTSIDE RECORDS SUMMARY | 2025-03-05 00:38 | XMS_ITS | Encounter Summary ---
Author Organization [facility] Address [address] [place] [address] Care Team Providers Care Unit Manager Name Role Phone Levon Mitchell DO Primary Care Provider [phone] Reason for Visit * Reason Onset Date Comments covid testing 08/21/2021 Encounter Details Date Type Department Care Team (Late st Contact Info) Description 08/21/2021 Telephone [facility] Pediatrics - [place] [address] [place] [phone] [place] [address] [place] [phone] covid testing Social History Tobacco Use Types Packs/Day Years Used Date Smoking Tobacco: Never Smokeless Tobacco: Never Alcohol Use Standard Drinks/Week Comments No 0 (1 standard drink = 0.6 oz pur e alcohol) Comments No Sex and Gender Information Value Date Recorded Sex Assigned at Not on file Legal Sex Female 4:46 AM SHOT PACKER Gender Identity Not on file Sexual Orientation Not on file COVID-19 Exposure Response Date Recorded In the last month, have you been in contact with someone who was confirmed or suspected to have Coronavirus / COVID-19? Yes 08/21/2021 10:10 AM SHOT PACKER documented as of this encounter Miscellaneous Notes * Telephone Encounter - Opal Benton RN - 08/21/2021 11:26 AM CST Appt already scheduled for today. PACKER documented in this encounter Plan of Treatment Not on file documented as of this encounter Visit Diagnoses Not on filedocumented in this encounter Additional Health Concerns Infection Onset Date Last Indicated Resolved Time R/O COVID-19 08/21/2021 08/21/2021 08/22/2021 8:40 PM SHOT PACKER COVID-19 08/21/2021 08/21/2021 09/20/2021 1:16 AM SHOT PACKER documented as of this encounter Care Teams Unit Manager Relationship Specialty Start Date End Date Levon Mitchell DO PCP - General Pediatrics 12/22/09 documented as of this encounter
--- OUTSIDE RECORDS SUMMARY | 2025-03-05 00:38 | XMS_ITS | Encounter Summary ---
Author Organization [facility] Address [address] [place] [address] Care Team Providers Care Planning Assistant Name Role Phone Levon Mitchell DO Primary Care Provider [phone] Encounter Details Date Type Department Care Team (Late st Contact Info) Description 08/22/2006 Outpatient Historical [facility] Pediatrics - [address] [place] [address] [place] [address]ing[address] [place] [address] [phone] Social History Tobacco Use Types Packs/Day Years Used Date Smoking Tobacco: Never Assessed Comments Unknown Sex and Gender Information Value Date Recorded Sex Assigned at Not on file Legal Sex Female 4:46 AM SENIOR JAVASCRIPT DEVELOPER Gender Identity Not on file Sexual Orientation Not on file documented as of this encounter Plan of Treatment Not on file documented as of this encounter Visit Diagnoses Not on filedocumented in this encounter Additional Health Concerns Infection Onset Date Last Indicated Resolved Time R/O COVID-19 08/21/2021 08/21/2021 08/22/2021 8:40 PM SENIOR JAVASCRIPT DEVELOPER COVID-19 08/21/2021 08/21/2021 09/20/2021 1:16 AM SENIOR JAVASCRIPT DEVELOPER documented as of this encounter Care Teams Planning Assistant Relationship Specialty Start Date End Date Levon Mitchell DO PCP - General Pediatrics 12/22/09 documented as of this encounter
--- OUTSIDE RECORDS SUMMARY | 2025-03-05 00:38 | XMS_ITS | Encounter Summary ---
Author Organization [facility] Address [address] [place] [address] Care Team Providers Care Ssis Ssrs Developer Name Role Phone Levon Mitchell DO Primary Care Provider [phone] Encounter Details Date Type Department Care Team (Late st Contact Info) Description 10/01/2007 Outpatient Historical [facility] Pediatrics - [place] [address] [place] [address] [place] [address] Chavez Renteria MD [address] [phone] Social History Tobacco Use Types Packs/Day Years Used Date Smoking Tobacco: Never Assessed Comments Unknown Sex and Gender Information Value Date Recorded Sex Assigned at Not on file Legal Sex Female 4:46 AM MEAL TEMPERER Gender Identity Not on file Sexual Orientation Not on file documented as of this encounter Plan of Treatment Not on file documented as of this encounter Visit Diagnoses Not on filedocumented in this encounter Additional Health Concerns Infection Onset Date Last Indicated Resolved Time R/O COVID-19 08/21/2021 08/21/2021 08/22/2021 8:40 PM MEAL TEMPERER COVID-19 08/21/2021 08/21/2021 09/20/2021 1:16 AM MEAL TEMPERER documented as of this encounter Care Teams Ssis Ssrs Developer Relationship Specialty Start Date End Date Levon Mitchell DO PCP - General Pediatrics 12/22/09 documented as of this encounter
--- OUTSIDE RECORDS SUMMARY | 2025-03-05 00:38 | XMS_ITS | Encounter Summary ---
Author Organization [facility] Address [address] [place] [address] Care Team Providers Care Senior Analyst Market Intelligence Name Role Phone Levon Mitchell DO Primary Care Provider [phone] Encounter Details Date Type Department Care Team (Late st Contact Info) Description 07/03/2006 Outpatient Historical [facility] Pediatrics - [place] [address] [place] [address] Mireille Mackay DO [address] [place] [address] Social History Tobacco Use Types Packs/Day Years Used Date Smoking Tobacco: Never Assessed Comments Unknown Sex and Gender Information Value Date Recorded Sex Assigned at Not on file Legal Sex Female 4:46 AM SVP GROUP DIRECTOR Gender Identity Not on file Sexual Orientation Not on file documented as of this encounter Last Filed Vital Signs Vital Sign Reading Time Taken Comments Blood Pressure - - Pulse - - Temperature 36.8 C (98.2 F) 07/03/2006 5:40 PM SVP GROUP DIRECTOR Respiratory Rate - - Oxygen Saturation - - Inhaled Oxygen Concentration - - Weight 8.023 kg (17 lb 11 oz) 07/03/2006 5:40 PM SVP GROUP DIRECTOR Height - - Body Mass Index - - documented in this encounter Plan of Treatment Not on file documented as of this encounter Visit Diagnoses Not on filedocumented in this encounter Additional Health Concerns Infection Onset Date Last Indicated Resolved Time R/O COVID-19 08/21/2021 08/21/2021 08/22/2021 8:40 PM SVP GROUP DIRECTOR COVID-19 08/21/2021 08/21/2021 09/20/2021 1:16 AM SVP GROUP DIRECTOR documented as of this encounter Care Teams Senior Analyst Market Intelligence Relationship Specialty Start Date End Date Levon [place] DO PCP - General Pediatrics 12/22/09 documented as of this encounter
--- OUTSIDE RECORDS SUMMARY | 2025-03-05 00:38 | XMS_ITS | Encounter Summary ---
Author Organization [facility] Address [address] [place] [address] Care Team Providers Care Prison Guard Supervisor Name Role Phone Levon Mitchell DO Primary Care Provider [phone] Encounter Details Date Type Department Care Team (Late st Contact Info) Description 11/12/2006 Outpatient Historical [facility] Pediatrics - [address] [place] [address] [place] [address] Doming[address] [place] [phone] Social History Tobacco Use Types Packs/Day Years Used Date Smoking Tobacco: Never Assessed Comments Unknown Sex and Gender Information Value Date Recorded Sex Assigned at Not on file Legal Sex Female 4:46 AM FUNDRAISING DIRECTOR Gender Identity Not on file Sexual Orientation Not on file documented as of this encounter Plan of Treatment Not on file documented as of this encounter Visit Diagnoses Not on filedocumented in this encounter Additional Health Concerns Infection Onset Date Last Indicated Resolved Time R/O COVID-19 08/21/2021 08/21/2021 08/22/2021 8:40 PM FUNDRAISING DIRECTOR COVID-19 08/21/2021 08/21/2021 09/20/2021 1:16 AM FUNDRAISING DIRECTOR documented as of this encounter Care Teams Prison Guard Supervisor Relationship Specialty Start Date End Date Levon Mitchell DO PCP - General Pediatrics 12/22/09 documented as of this encounter
--- OUTSIDE RECORDS SUMMARY | 2025-03-05 00:38 | XMS_ITS | Encounter Summary ---
Author Organization [facility] Address [address] [place] [address] Care Team Providers Care Vessel Welder Name Role Phone Levon Mitchell DO Primary Care Provider [phone] Encounter Details Date Type Department Care Team (Late st Contact Info) Description 09/30/2006 Outpatient Historical [facility] Pediatrics - [place] [address] [place] [address] [place] [phone] [place] [address] [place] [address] Social History Tobacco Use Types Packs/Day Years Used Date Smoking Tobacco: Never Assessed Comments Unknown Sex and Gender Information Value Date Recorded Sex Assigned at Not on file Legal Sex Female 4:46 AM DRUG AND ALCOHOL TREATMENT SPECIALIST Gender Identity Not on file Sexual Orientation Not on file documented as of this encounter Last Filed Vital Signs Vital Sign Reading Time Taken Comments Blood Pressure - - Pulse 106 09/30/2006 1:20 PM DRUG AND ALCOHOL TREATMENT SPECIALIST Temperature 36.7 C (98 F) 09/30/2006 1:20 PM DRUG AND ALCOHOL TREATMENT SPECIALIST Respiratory Rate 18 09/30/2006 1:20 PM DRUG AND ALCOHOL TREATMENT SPECIALIST Oxygen Saturation - - Inhaled Oxygen Concentration - - Weight 9.044 kg (19 lb 15 oz) 09/30/2006 1:20 PM DRUG AND ALCOHOL TREATMENT SPECIALIST Height - - Body Mass Index - - documented in this encounter Plan of Treatment Not on file documented as of this encounter Visit Diagnoses Not on filedocumented in this encounter Additional Health Concerns Infection Onset Date Last Indicated Resolved Time R/O COVID-19 08/21/2021 08/21/2021 08/22/2021 8:40 PM DRUG AND ALCOHOL TREATMENT SPECIALIST COVID-19 08/21/2021 08/21/2021 09/20/2021 1:16 AM DRUG AND ALCOHOL TREATMENT SPECIALIST documented as of this encounter Care Teams Vessel Welder Relationship Specialty Start Date End Date Levon [place] DO PCP - General Pediatrics 12/22/09 documented as of this encounter
--- OUTSIDE RECORDS SUMMARY | 2025-03-05 00:38 | XMS_ITS | Encounter Summary ---
Author Organization [facility] Address [address] [place] [address] Care Team Providers Care Global Transportation Manager Name Role Phone Levon Mitchell DO Primary Care Provider [phone] Encounter Details Date Type Department Care Team (Late st Contact Info) Description 10/06/2007 Orders Only [facility]s - [place] [address] [place] [address] [place] [address] [place] [address] Dominguez [address] [place] [phone] Social History Tobacco Use Types Packs/Day Years Used Date Smoking Tobacco: Never Assessed Comments Unknown Sex and Gender Information Value Date Recorded Sex Assigned at Not on file Legal Sex Female 4:46 AM PROOFER PREPRESS Gender Identity Not on file Sexual Orientation Not on file documented as of this encounter Progress Notes * Levon Mitchell DO - 12/31/2007 1:36 PM CDT TIME:05:12 pm PATIENT`S HOME PHONE: PATIENT`S WORK PHONE: PATIENT`S INSURANCE: KAVEH WHO TOOK THE CALL: Paloma Tovar M PATIENT'S AGE: 1 yr, 10 mths, 3 wks, 6 days GENERAL INFORMATION PCP: GR. PEREZ PHONE NUMBER: [phone] or [phone]. WHO CALLED: Patient`s mother called. Amie CURRENT ALLERGY LIST: [facility] NUMBER: [phone] PROBLEMS: pt has been ill with viral infection last couple of days and yesterday started with ear pulling. today mom noticed brownish/orange drainage from tube in ear. large amt running down the sideof her face. no fvr noted. mom does not have any ear drops at home. SECTION 1: REQUESTED ACTION: keke 10/06/07 at 05:14 pm NURSE PLEASE CALL: Patient requests a call from nurse. RN/BOWLING BALL MARKER RESPONSE: isabell 10/06/07 at 05:27 pm Instruct patient to call if symptoms persist. Nurse response:. b/s draining tube. floxin and augmentin? MEDICATIONS: AUGMENTIN ES-600 ORAL SUSPENSION WHEN RECONSTITUTED 600-42.9 MG/5ML, 1/2 tsp po bid x 10d, 10 Duration/Days Supply, status: NEW PRESCRIPTION, 10/06/2007. FLOXIN OTIC OTIC SOLUTION 0.3 %, 5 drops in draining tube bid, 5 Duration/Days Supply, status: NEW PRESCRIPTION, 10/06/2007. DOCTOR`S RESPONSE: savannah 10/06/07 at 05:35 pm ok SECTION 2: RN/BOWLING BALL MARKER RESPONSE: isabell 10/06/07 at 05:40 pm Called pharmacy at 10/06/07 at 05:40 pm. lul Electronically Signed by: Claudine Gordon RN on Saturday, October 06, 2007 documented in this encounter Plan of Treatment Not on file documented as of this encounter Visit Diagnoses Not on filedocumented in this encounter Additional Health Concerns Infection Onset Date Last Indicated Resolved Time R/O COVID-19 08/21/2021 08/21/2021 08/22/2021 8:40 PM PROOFER PREPRESS COVID-19 08/21/2021 08/21/2021 09/20/2021 1:16 AM PROOFER PREPRESS documented as of this encounter Care Teams Global Transportation Manager Relationship Specialty Start Date End Date Levon [place] DO PCP - General Pediatrics 12/22/09 documented as of this encounter
--- OUTSIDE RECORDS SUMMARY | 2025-03-05 00:38 | XMS_ITS | Continuity of Care Document ---
Author Organization [facility] Address [address] [place] [address] Phone Care Team Providers Care Licensed Club Manager Name Role Phone Jose C HARDING, Rafael Unavailable Unavailable Allergies, Adverse Reactions, Alerts Substance Reaction Status Criticality No Known Allergies Active No Inform ation Medications Medication Instructions Dosage Effective Dates (start - stop) Status Comments Zyrtec 10 mg tablet take 1 tablet by ora l route every day 10 MG - Active Procedures Procedure Date OFFICE/OUTPATIENT VISIT EST POSTOP FOLLOW-UP VISIT OFFICE/OUTPATIENT VISIT EST OFFICE CONSULTATION Advance Directives Directive Yes / No Effective Date File Name No Information Encounters Encounter Description Practice Location Reason(s) For Visit Diagnoses Date Provider Providers Copied on Encounter [facility], [address], [address], [place] tel:[phone] [facility] No Information 0 Jose C Hall. [address] [place], [place], [address] . tel: [phone] [facility], [address], [address], [place] tel:[phone] [facility] Closed dislocation of right patella, initial encounter 0 Jose C Hall. [address] [facility] [address] , [place], [place], [id number] . tel: [phone] OFFICE/OUTPATI ENT VISIT EST [facility], [address] [facility] [address], [address], [place] tel:[phone] [facility] Knee effusion, rightClosed dislocation of right patella, initial encounter 0 Jose C Hall. [address], [place], [place], [address] . tel: [phone] [facility], [address] [place] [address], [place], [address], [place] tel:[phone] [facility] Closed nondisplaced fracture of medial condyle of right femur with routine healing 2- 9 Sheikh Walter. [address], [place], [place], [id number] , [place]. tel: [phone] OFFICE/OUTPATI ENT VISIT EST [facility], [address] [place] [address] [address], [place], [address], [place] tel:[phone] [facility] Nondisplaced fracture of medial condyle of right femur, initial encounter for closed fracture 9 Sheikh Walter. [address], [place], [place], [id number] , [place]. tel: [phone] OFFICE CONSULTATION [facility], [address] [place] [address], [place], [address], [place] tel:[phone] [facility] Acute pain of right kneeEffusion of right knee 9 Sheikh Walter. [address], [place], [place], [address] , [place]. tel: [phone] Referring Provider: Levon Knapp, [address], [place], [address]. tel:[phone] Family History Family Member Type Diagnosis Age At Onset Sister Problem (finding) Alive and well Mother Problem (finding) hypertension Payers Payer name Insurance type Covered republican ID Lindy melchor(s) [facility] [place] [id number] Social History Type Description Quantity Date Captured Comments Alcohol Use Details Unknown Caffeine Use Details Unknown Tobacco Use Status No Information Smoking Status No Information Sex Female Chief Complaint And Reason For Visit No Information Reason For Referral Reason For Referral No Information Plan Of Treatment Date Type Action Status Referral Ordered: MRI ANY JT LXTR C-MATRL RT knee Appointment date/timeframe: 10/29/2018 ordered History Of Present Illness Encounter Date Complaint History Of Prese nt Illness No Information Functional Status Date Functional Assessmen t No Information Instructions Date Instruction Additional Infor jackie Discussed treatment options Rela thomas to Dislocation of left patella, initial encounter Assessments Type Assessment Date No Information Patient Care Teams Name Effective Dates (start - stop) Status Members No Information
--- OUTSIDE RECORDS SUMMARY | 2025-03-05 00:38 | XMS_ITS | Encounter Summary ---
Author Organization [facility] Address [address] [facility] [address] [address] Care Team Providers Care Sales Audit Clerk Name Role Phone Levon [place] DO Primary Care Provider [phone] Encounter Details Date Type Department Care Team (Latest Contact Info) Description 06/28/2008 Outpatient Historical [facility] Disla, Marisela Elizabeth MD [address] [facility] [address] [place] [phone] Screening for Chemical Poisoning and Other Contamination Social History Tobacco Use Types Packs/Day Years Used Date Smoking Tobacco: Never Assessed Comments Unknown Sex and Gender Information Value Date Recorded Sex Assigned at Not on file Legal Sex Female 4:46 AM MEDICAL/SURGERY REGISTERED NURSE Gender Identity Not on file Sexual Orientation Not on file documented as of this encounter Plan of Treatment Not on file documented as of this encounter Visit Diagnoses Diagnosis Screening for chemical poisoning and other contamination documented in this encounter Additional Health Concerns Infection Onset Date Last Indicated Resolved Time R/O COVID-19 08/21/2021 08/21/2021 08/22/2021 8:40 PM MEDICAL/SURGERY REGISTERED NURSE COVID-19 08/21/2021 08/21/2021 09/20/2021 1:16 AM MEDICAL/SURGERY REGISTERED NURSE documented as of this encounter Care Teams Sales Audit Clerk Relationship Specialty Start Date End Date Levon [place] DO PCP - General Pediatrics 12/22/09 documented as of this encounter
--- OUTSIDE RECORDS SUMMARY | 2025-03-05 00:38 | XMS_ITS | Encounter Summary ---
Author Organization [facility] Address [address] [place] [address] Care Team Providers Care Vacuum Drier Operator Name Role Phone Levon [place] DO Primary Care Provider [phone] Encounter Details Date Type Department Care Team (Late st Contact Info) Description 12/12/2006 Orders Only [facility] - [place] [address] [place] [address] [place] [address] [place] [address] Doming[address] [place] [phone] Social History Tobacco Use Types Packs/Day Years Used Date Smoking Tobacco: Never Assessed Comments Unknown Sex and Gender Information Value Date Recorded Sex Assigned at Not on file Legal Sex Female 4:46 AM INTERNET SECURITY SPECIALIST Gender Identity Not on file Sexual Orientation Not on file documented as of this encounter Progress Notes * Levon [place] DO - 01/08/2008 5:17 PM CDT TIME:03:51 pm PATIENT`S HOME PHONE: PATIENT`S WORK PHONE: PATIENT`S INSURANCE: KAVEH WHO TOOK THE CALL: Dora Tejada A PATIENT'S AGE: 1 yr, 1 mth, 0 wks, 4 days GENERAL INFORMATION PCP: 3619. ALTERNATIVE PHONE NUMBER: [phone] WHO CALLED: Patient`s mother called.maria m CURRENT ALLERGY LIST: [facility] NUMBER: [phone] CURRENT MEDICATIONS: augmentin, orapred and albuterol PROBLEMS: she is on lots of meds including abx. she now has a yeast infection also. mom does not have any nystatin left. SECTION 1: REQUESTED ACTION: aurelio 12/12/06 at 03:52 pm NURSE PLEASE CALL: Patient requests a call from nurse. RN/MOLDER HAND RESPONSE: costbj 12/12/06 at 03:59 pm Instruct patient to call if symptoms persist. Nurse response:.11th b/s diaper rash/abx Called pharmacy at 12/12/06 at 04:01 pm. georgina MEDICATIONS: NYSTATIN EXTERNAL OINTMENT [id number] UNIT/GM GRAMS, use topically qid prn with diaper changes, 30 Dispensed, status: NEW PRESCRIPTION, 12/12/2006. Electronically Signed by: Levon [place] DO on November documented in this encounter Plan of Treatment Not on file documented as of this encounter Visit Diagnoses Not on filedocumented in this encounter Additional Health Concerns Infection Onset Date Last Indicated Resolved Time R/O COVID-19 08/21/2021 08/21/2021 08/22/2021 8:40 PM INTERNET SECURITY SPECIALIST COVID-19 08/21/2021 08/21/2021 09/20/2021 1:16 AM INTERNET SECURITY SPECIALIST documented as of this encounter Care Teams Vacuum Drier Operator Relationship Specialty Start Date End Date Levon [place] DO PCP - General Pediatrics 12/22/09 documented as of this encounter
--- OUTSIDE RECORDS SUMMARY | 2025-03-05 00:38 | XMS_ITS | Encounter Summary ---
Author Organization [facility] Address [address] [facility] Attn: Epic Prelude ADT [place] [address] Care Team Providers Care Disciplinary Hearing Officer Name Role Phone Levon [place] DO Primary Care Provider [phone] Encounter Details Date Type Department Care Team (Latest Contact Info) Description 11/12/2006 Orders Only Mireille Mackay DO [address] [facility] [address] [place] [address] Social History Tobacco Use Types Packs/Day Years Used Date Smoking Tobacco: Never Assessed Comments Unknown Sex and Gender Information Value Date Recorded Sex Assigned at Not on file Legal Sex Female 4:46 AM MOLTEN IRON POURER Gender Identity Not on file Sexual Orientation Not on file documented as of this encounter Plan of Treatment Not on file documented as of this encounter Visit Diagnoses Not on filedocumented in this encounter Additional Health Concerns Infection Onset Date Last Indicated Resolved Time R/O COVID-19 08/21/2021 08/21/2021 08/22/2021 8:40 PM MOLTEN IRON POURER COVID-19 08/21/2021 08/21/2021 09/20/2021 1:16 AM MOLTEN IRON POURER documented as of this encounter Care Teams Disciplinary Hearing Officer Relationship Specialty Start Date End Date Levon [place] DO PCP - General Pediatrics 12/22/09 documented as of this encounter
--- OUTSIDE RECORDS SUMMARY | 2025-03-05 00:38 | XMS_ITS | Encounter Summary ---
Author Organization [facility] Address [address] [place] [address] Care Team Providers Care Air Bag Builder Name Role Phone Levon [place] DO Primary Care Provider [phone] Encounter Details Date Type Department Care Team (Late st Contact Info) Description 2005 Orders Only [facility] - [place] [address] [place] [address] [place] [address] [place] [address] [place] [phone] Social History Tobacco Use Types Packs/Day Years Used Date Smoking Tobacco: Never Assessed Comments Unknown Sex and Gender Information Value Date Recorded Sex Assigned at Not on file Legal Sex Female 4:46 AM PLATE MOUNTER Gender Identity Not on file Sexual Orientation Not on file documented as of this encounter Progress Notes * Levon [place] DO - 05/28/2008 2:43 AM CDT TIME:08:53 am PATIENT`S HOME PHONE: PATIENT`S WORK PHONE: PATIENT`S INSURANCE: WHO TOOK THE CALL: Marcel Galo L PATIENT'S AGE: 1 yrs, 1 mth, 0 wks, 6 days GENERAL INFORMATION PCP: gr. PEREZ PHONE NUMBER: [phone] WHO CALLED: Patient`s mother called. amie PROBLEMS: On mylanta and rice cereal in enfamil for spit up/reflux. Since last noc, pt screaming, crying alot and not taking feeds as well. Is having good amt wet diapers. Afebrile. Is spitting up alot, will sound gurgly then swallowing alot, then screams-- is miserable. Mom very upset. SECTION 1: REQUESTED ACTION: suhail 05 at 08:53 am NURSE PLEASE CALL: Patient requests a call from nurse. RN/RURAL MAIL CARRIER RESPONSE: gorge 05 at 09:27 am will check with ?? DOCTOR`S RESPONSE: yesenia 05 at 09:40 am Please schedule an appointment for patient. SECTION 2: RN/RURAL MAIL CARRIER RESPONSE: abby 05 at 09:42 am Nurse response:.done Electronically Signed by: Janie Agrawal on Wednesday, 2005 * Levon [place] DO - 05/28/2008 2:39 AM CDT PATIENT'S AGE: 1 yrs, 1 mth, 0 wks, 6 days VITALS: TEMP: 98.2??f Axillary WEIGHT: 4.73950 kg PULSE: 120 Apical, Regular RESPIRATIONS: 22. NURSE NAME: Caitie [place] M //sarah ivory ACCOMPANIED BY: Mother, Father. HISTORY PROVIDED BY: Mother, Father. ALLERGIES: CURRENT ALLERGY LIST: [facility] MEDICATIONS: RN/SARAH reviewed medications. mylanta, gas drops CHIEF COMPLAINT: The child is here for the following. reflux HISTORY: HPI: here with a complaint of increased cranky with feeds, there is some spitting there is no decrease in activity and there is no change in urine out put and the stools are ok, the urine is not foul, enfamil lipil, there is no projectile feeds PHYSICAL EXAM: CONSTITUTIONAL: GENERAL APPEARANCE: Healthy appearing, alert patient, normally nourished, developmentally normal and in no acute distress. EYES: CONJUNCTIVA/LIDS: Conjunctivae and lids appear normal. EARS, NOSE, MOUTH AND THROAT: EXTERNAL/EARS AND NOSE: Overall appearance normal without lesions or masses. EARS: Tympanic membranes shiny without retraction. Canals unremarkable. Hearing grossly normal. NOSE (AND SINUS): No abnormality of the nose or sinuses is noted. ORAL: Inspection of gums, lips, palate, and dentition normal. No lesions or masses. Oral mucosa unremarkable with non-inflamed posterior pharynx. RESPIRATORY: Clear to auscultation. Normal respiratory effort. CARDIOVASCULAR: CARDIAC: Regular rhythm with no murmurs, rubs, gallops, or abnormal heart sounds. GASTROINTESTINAL: ABDOMEN: Soft, non-tender, without masses. Bowel sound active. LIVER/SPLEEN/KIDNEY: No hepatosplenomegaly. GENITOURINARY: EXTERNAL/VAGINAL: Normal female genitalia. No discharge. Normal size clitoris and labia. Mucosa clear without lesions. Hymen intact. LYMPHATICS: No lymphadenopathy in the neck, axillae, or groin. NEUROLOGIC: GENERAL APPEARANCE: Negative meningeal signs. Negative Kernig's signs. Negative Brudzinski's signs. ASSESSMENT/PLAN: 530.81-GASTROESOPHAGEAL REFLUX (GERD) MEDICATIONS: ZANTAC ORAL SYRUP 75 MG/5ML, 0.5ml po tid, 45 Dispensed, status: NEW PRESCRIPTION, 2005. PATIENT EDUCATION: Education sheet given to the patient. Questions were allowed to stated satisfaction. RETURN VISIT/GUIDANCE: Patient is instructed to call with concerns or changes in condition. Patientis instructed to call with concerns or worries about condition. Differential diagnosis was discussed. Advised to encouraged fluids. Patient instructed to return in 2 days if not better. Electronically Signed by: Levon [place] DO on Wednesday, 2005 documented in this encounter Plan of Treatment Not on file documented as of this encounter Visit Diagnoses Not on filedocumented in this encounter Additional Health Concerns Infection Onset Date Last Indicated Resolved Time R/O COVID-19 08/21/2021 08/21/2021 08/22/2021 8:40 PM PLATE MOUNTER COVID-19 08/21/2021 08/21/2021 09/20/2021 1:16 AM PLATE MOUNTER documented as of this encounter Care Teams Air Bag Builder Relationship Specialty Start Date End Date Levon [place] DO PCP - General Pediatrics 12/22/09 documented as of this encounter
--- OUTSIDE RECORDS SUMMARY | 2025-03-05 00:38 | XMS_ITS | Encounter Summary ---
Author Organization [facility] Address [address] [place] [address] Care Team Providers Care Welder Metal Fab Name Role Phone Levon Mitchell DO Primary Care Provider [phone] Encounter Details Date Type Department Care Team (Late st Contact Info) Description 01/21/2006 Outpatient Historical [facility] Pediatrics - [place] [address] [place] [address] [place] [phone] [place] [address] [place] [address] Social History Tobacco Use Types Packs/Day Years Used Date Smoking Tobacco: Never Assessed Comments Unknown Sex and Gender Information Value Date Recorded Sex Assigned at Not on file Legal Sex Female 4:46 AM TITLE MANAGER Gender Identity Not on file Sexual Orientation Not on file documented as of this encounter Last Filed Vital Signs Vital Sign Reading Time Taken Comments Blood Pressure - - Pulse 120 01/21/2006 3:00 PM CDT Temperature 37 C (98.6 F) 01/21/2006 3:00 PM CDT Respiratory Rate 24 01/21/2006 3:00 PM CDT Oxygen Saturation - - Inhaled Oxygen Concentration - - Weight 6.18 kg (13 lb 10 oz) 01/21/2006 3:00 PM CDT Height - - Body Mass Index - - documented in this encounter Plan of Treatment Not on file documented as of this encounter Visit Diagnoses Not on filedocumented in this encounter Additional Health Concerns Infection Onset Date Last Indicated Resolved Time R/O COVID-19 08/21/202108/21/2021 08/22/2021 8:40 PM TITLE MANAGER COVID-19 08/21/2021 08/21/2021 09/20/2021 1:1 6 AM TITLE MANAGER documented as of this encounter Care Teams Welder Metal Fab Relationship Specialty Start Date End Date Levon Mitchell DO PCP - General Pediatrics 12/22/09 documented as of this encounter
--- OUTSIDE RECORDS SUMMARY | 2025-03-05 00:38 | XMS_ITS | Encounter Summary ---
Author Organization [facility] Address [address] [place] [address] Care Team Providers Care Clinical Support Manager Name Role Phone Levon Mitchell DO Primary Care Provider [phone] Encounter Details Date Type Department Care Team (Late st Contact Info) Description 01/17/2006 Outpatient Historical [facility] Pediatrics - [address] [place] [address] [place] [address] Dom[address]uez [address] [place] [phone] Social History Tobacco Use Types Packs/Day Years Used Date Smoking Tobacco: Never Assessed Comments Unknown Sex and Gender Information Value Date Recorded Sex Assigned at Not on file Legal Sex Female 4:46 AM PACKAGE DESIGNER Gender Identity Not on file Sexual Orientation Not on file documented as of this encounter Plan of Treatment Not on file documented as of this encounter Visit Diagnoses Not on filedocumented in this encounter Additional Health Concerns Infection Onset Date Last Indicated Resolved Time R/O COVID-19 08/21/2021 08/21/2021 08/22/2021 8:40 PM PACKAGE DESIGNER COVID-19 08/21/2021 08/21/2021 09/20/2021 1:16 AM PACKAGE DESIGNER documented as of this encounter Care Teams Clinical Support Manager Relationship Specialty Start Date End Date Levon Mitchell DO PCP - General Pediatrics 12/22/09 documented as of this encounter
--- OUTSIDE RECORDS SUMMARY | 2025-03-05 00:38 | XMS_ITS | Encounter Summary ---
Author Organization [facility] Address [address] [place] [address] Care Team Providers Care Methods Study Analyst Name Role Phone Levon Mitchell DO Primary Care Provider [phone] Encounter Details Date Type Department Care Team (Late st Contact Info) Description 03/03/2025 External Device Data [facility] ABSTRACTION Provider, Abstract NO ADDRESS ON FILE Social History Tobacco Use Types Packs/Day Years Used Date Smoking Tobacco: Never Smokeless Tobacco: Never Alcohol Use Standard Drinks/Week Comments No 0 (1 standard drink = 0.6 oz pur e alcohol) Comments No Sex and Gender Information Value Date Recorded Sex Assigned at Not on file Legal Sex Female 4:46 AM ADMISSION NURSE COORDINATOR Gender Identity Not on file Sexual Orientation Not on file documented as of this encounter Plan of Treatment Not on file documented as of this encounter Visit Diagnoses Not on filedocumented in this encounter Care Teams Methods Study Analyst Relationship Specialty Start Date End Date Levon Mitchell DO PCP - General Pediatrics 12/22/09 documented as of this encounter
--- OUTSIDE RECORDS SUMMARY | 2025-03-05 00:38 | XMS_ITS | Encounter Summary ---
Author Organization [facility] Address [address] [place] [address] Care Team Providers Care Electrician Outside Name Role Phone Levon Mitchell DO Primary Care Provider [phone] Encounter Details Date Type Department Care Team (Late st Contact Info) Description 2005 Outpatient Historical [facility] Pediatrics - [place] [address] [place] [address] [place] [phone] [place] [address] [place] [address] Social History Tobacco Use Types Packs/Day Years Used Date Smoking Tobacco: Never Assessed Comments Unknown Sex and Gender Information Value Date Recorded Sex Assigned at Not on file Legal Sex Female 4:46 AM PROSPECTING DRILLER Gender Identity Not on file Sexual Orientation Not on file documented as of this encounter Last Filed Vital Signs Vital Sign Reading Time Taken Comments Blood Pressure - - Pulse 120 2005 1:40 PM CDT Temperature 36.8 C (98.2 F) 2005 1:40 PM CDT Respiratory Rate 22 2005 1:40 PM CDT Oxygen Saturation - - Inhaled Oxygen Concentration - - Weight 4.961 kg (10 lb 15 oz) 2005 1:40 PM CDT Height - - Body Mass Index - - documented in this encounter Plan of Treatment Not on file documented as of this encounter Visit Diagnoses Not on filedocumented in this encounter Additional Health Concerns Infection Onset Date Last Indicated Resolved Time R/O COVID-19 08/21/2021 08/21/2021 08/22/2021 8:40 PM PROSPECTING DRILLER COVID-08/21/2021 08/21/2021 09/20/2021 1:16 AM PROSPECTING DRILLER documented as of this encounter Care Teams Electrician Outside Relationship Specialty Start Date End Date Levon Mitchell DO PCP - General Pediatrics 12/22/09 documented as of this encounter
--- OUTSIDE RECORDS SUMMARY | 2025-03-05 00:38 | XMS_ITS | Encounter Summary ---
Author Organization [facility] Address [address] [place] [address] Care Team Providers Care Industrial Maintenance Tech Name Role Phone Levon Mitchell DO Primary Care Provider [phone] Encounter Details Date Type Department Care Team (Late st Contact Info) Description 05/27/2006 Outpatient Historical [facility] Pediatrics - [address] [place] [address] [place] [address] Dominguez [address] [place] [phone] Social History Tobacco Use Types Packs/Day Years Used Date Smoking Tobacco: Never Assessed Comments Unknown Sex and Gender Information Value Date Recorded Sex Assigned at Not on file Legal Sex Female 4:46 AM REGULATOR MECHANIC Gender Identity Not on file Sexual Orientation Not on file documented as of this encounter Plan of Treatment Not on file documented as of this encounter Visit Diagnoses Not on filedocumented in this encounter Additional Health Concerns Infection Onset Date Last Indicated Resolved Time R/O COVID-19 08/21/2021 08/21/2021 08/22/2021 8:40 PM REGULATOR MECHANIC COVID-19 08/21/2021 08/21/2021 09/20/2021 1:16 AM REGULATOR MECHANIC documented as of this encounter Care Teams Industrial Maintenance Tech Relationship Specialty Start Date End Date Levon Mitchell DO PCP - General Pediatrics 12/22/09 documented as of this encounter
--- OUTSIDE RECORDS SUMMARY | 2025-03-05 00:38 | XMS_ITS | Encounter Summary ---
Author Organization [facility] Address [address] [place] [address] Care Team Providers Care X Ray Service Technician Name Role Phone Levon Mitchell DO Primary Care Provider [phone] Encounter Details Date Type Department Care Team (Late st Contact Info) Description 05/28/2006 Orders Only [facility] - [place] [address] [place] [address] [place] [address] [place] [address] Dom[address]uez [address] [place] [phone] Social History Tobacco Use Types Packs/Day Years Used Date Smoking Tobacco: Never Assessed Comments Unknown Sex and Gender Information Value Date Recorded Sex Assigned at Not on file Legal Sex Female 4:46 AM DIRECTOR OF AUTOMATION Gender Identity Not on file Sexual Orientation Not on file documented as of this encounter Progress Notes * Levon Mitchell DO - 06/01/2008 8:34 PM CDT TIME:01:34 pm PATIENT`S HOME PHONE: PATIENT`S WORK PHONE: PATIENT`S INSURANCE: [employer] WHO TOOK THE CALL: Marcel Galo L GENERAL INFORMATION PCP: berenice WHO CALLED: Pharmacy called. [facility] NUMBER: [phone] SECTION 1: REQUESTED ACTION ribbml 05/28/06 at 01:34 pm: MEDICATION REQUEST: zantac syrup 63ml, last fill 02/21/06 RN/EXTRACT MIXER RESPONSE: costbj 05/28/06 at 02:08 pm Called pharmacy at 05/28/06 at 02:14 pm. [facility] MEDICATIONS: ZANTAC ORAL SYRUP 75 MG/5ML, 1ml po tid, 30 Duration/Days Supply, status: NEW PRESCRIPTION, 05/28/2006. Electronically Signed by: Levon Mitchell DO on Sunday, May 28, 2006 documented in this encounter Plan of Treatment Not on file documented as of this encounter Visit Diagnoses Not on filedocumented in this encounter Additional Health Concerns Infection Onset Date Last Indicated Resolved Time R/O COVID-19 08/21/2021 08/21/2021 08/22/2021 8:40 PM DIRECTOR OF AUTOMATION COVID-19 08/21/2021 08/21/2021 09/20/2021 1:16 AM DIRECTOR OF AUTOMATION documented as of this encounter Care Teams X Ray Service Technician Relationship Specialty Start Date End Date Levon Mitchell DO PCP - General Pediatrics 12/22/09 documented as of this encounter
--- OUTSIDE RECORDS SUMMARY | 2025-03-05 00:38 | XMS_ITS | Encounter Summary ---
Author Organization [facility] Address [address] [place] [address] Care Team Providers Care Second Time Worker Name Role Phone Levon Mitchell DO Primary Care Provider [phone] Encounter Details Date Type Department Care Team (Late st Contact Info) Description 01/17/[address] [facility] Pediatrics - [place] [address] [facility] [place] [address] [place] [address]ing[address] [place] [phone] Social History Tobacco Use Types Packs/Day Years Used Date Smoking Tobacco: Never Assessed Comments Unknown Sex and Gender Information Value Date Recorded Sex Assigned at Not on file Legal Sex Female 4:46 AM CRIMP SETTER Gender Identity Not on file Sexual Orientation Not on file documented as of this encounter Progress Notes * Levon Mitchell DO - 05/28/2008 6:29 AM CDT NURSE NAME: Blanca Tabor D * Levon Mitchell DO - 05/28/2008 6:29 AM CDT PATIENT'S AGE: 1 yrs, 2 mths, 1 wk, 3 days VITALS: WEIGHT: 6.04460 kg LENGTH/HEIGHT: 24 3/4in HEAD CIRCUM: 15.5in NURSE NAME: Becky MigdaliaReji ACCOMPANIED BY: Parents. HISTORY PROVIDED BY: Parents. ALLERGIES: CURRENT ALLERGY LIST: NKDA MEDICATIONS: ZANTAC CHIEF COMPLAINT: The child is here for the 2 month check up. Please see scanned Well Visit form forsame date of service. OFFICE PROCEDURE: INJECTIONS & IMMUNIZATIONS: . DTAP, 0.5, MILLILITERS, INTRAMUSCULAR INJECTION, Right Thigh, given by [facility] on 01/17/2006; consent form signed, literature given; HEPATITIS B PEDS/ADOL 3 DOSE, 0.5, MILLILITERS, INTRAMUSCULAR INJECTION, Left Thigh, given by [facility] on 01/17/2006; consent form signed, literature given; HIB,PRP-TCONJ/4 DOSE, 0.5, MILLILITERS, INTRAMUSCULAR INJECTION, Right Thigh, given by [facility] on 01/17/2006; consent form signed, literature given; PNEUMO . CHILD PREVNAR, 0.5, MILLILITERS, INTRAMUSCULAR INJECTION, Left Thigh, given by [facility] on 01/17/2006; consent form signed, literature given; POLIO INJECT (IPV), 0.5, MILLILITERS, INTRAMUSCULAR INJECTION, Left Thigh, given by [facility] on 01/17/2006; consent form signed, literature given; ASSESSMENT/PLAN: V20.2-HEALTH SUPERVISION OF INFANT OR CHILD LAB ORDERS: Order number: [id number] Test Ordered: INJ-ADMIN 1 VACCINE W/PHYS INSPECTOR EXHAUST EMISSIONS <8 [id number] [id number] Order number: [id number] Test Ordered: INJ-ADMIN 4 ADDTL W/ PHYS INSPECTOR EXHAUST EMISSIONS < 8 [id number] [id number] Order number: [id number] Test Ordered: INJ-DTAP 05770 Order number: [id number] Test Ordered: INJ-HEP B (3 DOSE SCHEDULE) 86167 Order number: [id number] Test Ordered: INJ-HIB (4 DOSE SCHED) 74154 Order number: [id number] Test Ordered: INJ-POLIO (IPV) 40061 Order number: [id number] Test Ordered: INJ-PREVNAR UNDER 5 YRS [address]4823 RETURN VISIT/GUIDANCE: Differential diagnosis was discussed. Patient is instructed to call with concerns or worries about condition. Patient is instructed to call with concerns or changes in condition. Patient instructed to return in 2 months. Electronically Signed by: Levon Mitchell DO on January * Levon Mitchell DO - 05/28/2008 6:28 AM CDT TIME:12:21 pm PATIENT`S HOME PHONE: PATIENT`S WORK PHONE: PATIENT`S INSURANCE: [facility] WHO TOOK THE CALL: Myrtle Felix L [facility] NUMBER: [phone]. PROBLEMS: OV today. Forgot script for zantac and Dr. Mitchell increased pt's dose. SECTION 1: RN/SYSTEMATIC THEOLOGY PROFESSOR RESPONSE: gorge 01/17/06 at 12:22 pm Called pharmacy at 01/17/06 at 12:23 pm. to jeanie. MEDICATIONS: ZANTAC ORAL SYRUP 75 MG/5ML, 0.7ml po tid, 30 Duration/Days Supply, status: NEW PRESCRIPTION, 01/17/2006. Electronically Signed by: Levon Mitchell DO on January documented in this encounter Plan of Treatment Not on file documented as of this encounter Visit Diagnoses Not on filedocumented in this encounter Additional Health Concerns Infection Onset Date Last Indicated Resolved Time R/O COVID-19 08/21/2021 08/21/2021 08/22/2021 8:40 PM CRIMP SETTER COVID-19 08/21/2021 08/21/2021 09/20/2021 1:16 AM CRIMP SETTER documented as of this encounter Care Teams Second Time Worker Relationship Specialty Start Date End Date Levon Mitchell DO PCP - General Pediatrics 12/22/09 documented as of this encounter
--- OUTSIDE RECORDS SUMMARY | 2025-03-05 00:38 | XMS_ITS | Encounter Summary ---
Author Organization [facility] Address [address] [facility] Attn: Epic Prelude ADT [place] [address] Care Team Providers Care Methods Analyst Name Role Phone KarenLevon julio DO Primary Care Provider [phone] Encounter Details Date Type Department Care Team (Latest Contact Info) Description 12/25/2006 Orders Only Mireille Mackay DO [address] [facility] [address] [place] [address] Social History Tobacco Use Types Packs/Day Years Used Date Smoking Tobacco: Never Assessed Comments Unknown Sex and Gender Information Value Date Recorded Sex Assigned at Not on file Legal Sex Female 4:46 AM SUPERVISOR TUBING Gender Identity Not on file Sexual Orientation Not on file documented as of this encounter Progress Notes * Mireille Mackay DO - 01/08/2008 9:22 AM CDT TIME:11:01 am PATIENT`S HOME PHONE: PATIENT`S WORK PHONE: PATIENT`S INSURANCE: [employer] WHO TOOK THE CALL: Dora Tejada A PATIENT'S AGE: 1 yr, 1 mth, 2 wks, 4 days GENERAL INFORMATION PCP: [id number]. ALTERNATIVE PHONE NUMBER: [phone] #[phone] WHO CALLED: Patient`s father called[facility] NUMBER: [phone] PROBLEMS: Dad states pt has special shampoo and cream from derm for psoriasis. Pt's mom will not give to dad for pt, when dad has pt with him. Requests Dr. Mackay call out scripts for him to have on hand for pt. SECTION 1: REQUESTED ACTION: [email or web address] 12/25/06 at 11:03 am NURSE PLEASE CALL: Patient requests a call from nurse. RN/OIL HEAT TECHNICIAN RESPONSE: gorge 12/25/06 at 11:[address].-- per note from Dr. Solano, pt to use Loprox shampoo/body wash, bactroban, and I can't tell what other cream is?? DOCTOR`S RESPONSE: [facility] 12/25/06 at 11:51 am desonide SECTION 2: RN/OIL HEAT TECHNICIAN RESPONSE: [facility] 12/25/06 at 12:01 pm dad notified will call in following as per derm note in pt's chart. Dad states has since talked with pt's mom who states pt no longer uses desonide because pt had a reaction to it'. Called pharmacy at 12/25/06 at 12:08 pm. to pharmacist. MEDICATIONS: LOPROX EXTERNAL SHAMPOO 1 % BOTTLES, use as directed, 1 Dispensed, status: NEW PRESCRIPTION, 12/25/2006. BACTROBAN EXTERNAL OINTMENT 2 % GRAMS, apply to nostrils and skin folds, 30 Dispensed, status: NEW PRESCRIPTION, 12/25/2006. Electronically Signed by: Mireille Mackay DO on Monday, December 25, 2006 documented in this encounter Plan of Treatment Not on file documented as of this encounter Visit Diagnoses Not on filedocumented in this encounter Additional Health Concerns Infection Onset Date Last Indicated Resolved Time R/O COVID-19 08/21/2021 08/21/2021 08/22/2021 8:40 PM SUPERVISOR TUBING COVID-19 08/21/2021 08/21/2021 09/20/2021 1:16 AM SUPERVISOR TUBING documented as of this encounter Care Teams Methods Analyst Relationship Specialty Start Date End Date Levon Mitchell DO PCP - General Pediatrics 12/22/09 documented as of this encounter
--- OUTSIDE RECORDS SUMMARY | 2025-03-05 00:38 | XMS_ITS | Encounter Summary ---
Author Organization [facility] Address [address] [place] [address] Care Team Providers Care Sr Risk Management Consultant Name Role Phone Levon Mitchell DO Primary Care Provider [phone] Encounter Details Date Type Department Care Team (Late st Contact Info) Description 2005 Orders Only [facility] Pediatrics - [place] [address] [place] [address] [place] [address] [place] [address] [place] [phone] Social History Tobacco Use Types Packs/Day Years Used Date Smoking Tobacco: Never Assessed Comments Unknown Sex and Gender Information Value Date Recorded Sex Assigned at Not on file Legal Sex Female 4:46 AM EMPLOYEE COMMUNICATIONS INTERN Gender Identity Not on file Sexual Orientation Not on file documented as of this encounter Plan of Treatment Not on file documented as of this encounter Visit Diagnoses Not on filedocumented in this encounter Additional Health Concerns Infection Onset Date Last Indicated Resolved Time R/O COVID-19 08/21/2021 08/21/2021 08/22/2021 8:40 PM EMPLOYEE COMMUNICATIONS INTERN COVID-19 08/21/2021 08/21/2021 09/20/2021 1:16 AM EMPLOYEE COMMUNICATIONS INTERN documented as of this encounter Care Teams Sr Risk Management Consultant Relationship Specialty Start Date End Date Levon Mitchell DO PCP - General Pediatrics 12/22/09 documented as of this encounter
--- OUTSIDE RECORDS SUMMARY | 2025-03-05 00:38 | XMS_ITS | Encounter Summary ---
Author Organization [facility] Address [address] [place] [address] Care Team Providers Care Lieutenant Ballistics Name Role Phone Levon Mitchell DO Primary Care Provider [phone] Encounter Details Date Type Department Care Team (Late st Contact Info) Description 06/17/2006 Outpatient Historical [facility] Pediatrics - [place] [address] [place] [address] [place] [phone] [place] [address] [place] [phone] Social History Tobacco Use Types Packs/Day Years Used Date Smoking Tobacco: Never Assessed Comments Unknown Sex and Gender Information Value Date Recorded Sex Assigned at Not on file Legal Sex Female 4:46 AM BANKING PIN ADJUSTER Gender Identity Not on file Sexual Orientation Not on file documented as of this encounter Last Filed Vital Signs Vital Sign Reading Time Taken Comments Blood Pressure - - Pulse - - Temperature 36.9 C (98.4 F) 06/17/2006 1:50 PM BANKING PIN ADJUSTER Respiratory Rate - - Oxygen Saturation - - Inhaled Oxygen Concentration - - Weight 8.08 kg (17 lb 13 oz) 06/17/2006 1:50 PM BANKING PIN ADJUSTER Height - - Body Mass Index - - documented in this encounter Plan of Treatment Not on file documented as of this encounter Visit Diagnoses Not on filedocumented in this encounter Additional Health Concerns Infection Onset Date Last Indicated Resolved Time R/O COVID-19 08/21/2021 08/21/2021 08/22/2021 8:40 PM BANKING PIN ADJUSTER COVID-19 08/21/2021 08/21/2021 09/20/2021 1:16 AM BANKING PIN ADJUSTER documented as of this encounter Care Teams Lieutenant Ballistics Relationship Specialty Start Date End Date Levon Mitchell DO PCP - General Pediatrics 12/22/09 documented as of this encounter
--- OUTSIDE RECORDS SUMMARY | 2025-03-05 00:38 | XMS_ITS | Encounter Summary ---
Author Organization [facility] Address [address] [place] [address] Care Team Providers Care Sail Repair Person Name Role Phone Levon Mitchell DO Primary Care Provider [phone] Encounter Details Date Type Department Care Team (Late st Contact Info) Description 07/19/2006 Outpatient Historical [facility] Pediatrics - [address] [place] [address] [place] [address] Dominguez [address] [place] [phone] Social History Tobacco Use Types Packs/Day Years Used Date Smoking Tobacco: Never Assessed Comments Unknown Sex and Gender Information Value Date Recorded Sex Assigned at Not on file Legal Sex Female 4:46 AM MANAGER FUNCTIONAL Gender Identity Not on file Sexual Orientation Not on file documented as of this encounter Plan of Treatment Not on file documented as of this encounter Visit Diagnoses Not on filedocumented in this encounter Additional Health Concerns Infection Onset Date Last Indicated Resolved Time R/O COVID-19 08/21/2021 08/21/2021 08/22/2021 8:40 PM MANAGER FUNCTIONAL COVID-19 08/21/2021 08/21/2021 09/20/2021 1:16 AM MANAGER FUNCTIONAL documented as of this encounter Care Teams Sail Repair Person Relationship Specialty Start Date End Date Levon Mitchell DO PCP - General Pediatrics 12/22/09 documented as of this encounter
--- OUTSIDE RECORDS SUMMARY | 2025-03-05 00:38 | XMS_ITS | Encounter Summary ---
Author Organization [facility] Address [address] [place] [address] Care Team Providers Care Wood Boatbuilder Apprentice Name Role Phone Levon Mitchell DO Primary Care Provider [phone] Encounter Details Date Type Department Care Team (Late st Contact Info) Description 12/17/2006 Orders Only [facility] Pediatrics - [place] [address] [place] [address] [place] [address] [place] [address] Dominguez [address] [place] [phone] Social History Tobacco Use Types Packs/Day Years Used Date Smoking Tobacco: Never Assessed Comments Unknown Sex and Gender Information Value Date Recorded Sex Assigned at Not on file Legal Sex Female 4:46 AM GRAZING AIDE Gender Identity Not on file Sexual Orientation Not on file documented as of this encounter Progress Notes * Levon Mitchell DO - 01/08/2008 8:42 AM CDT TIME:09:07 am PATIENT`S HOME PHONE: PATIENT`S WORK PHONE: PATIENT`S INSURANCE: KAVEH WHO TOOK THE CALL: Judith Campoverde J PATIENT'S AGE: 1 yr, 1 mth, 1 wk, 3 days GENERAL INFORMATION PCP: gr. PEREZ PHONE NUMBER: [phone] ext [phone] WHO CALLED: Patient`s father called.[facility] PH[facility] NUMBER: [phone] gibran PROBLEMS: 1.Has appt with an ENT on 12/19 but not sure of name of ENT, when [facility] gave info for appt they told him they do not know how to spell the name of the ENT he is seeing but gave dad the phone # and he called there yesterday and LMM but they have not called him back yet. 2.Is coughing off and on, congestion, afeb, no wheeze. Was wheezing on Saturday but cleared with nebs. Active and playful, good appetite, takes fluids and voids well. Slept fine last night. Is almost out of albuterol and would like refill called out, pharmacy gave him small box last time. SECTION 1: REQUESTED ACTION: eugene 12/17/06 at 09:08 am NURSE PLEASE CALL: Patient requests a call from nurse. RN/REFRIGERATION MECHANIC RESPONSE: cameron 12/17/06 at 09:27 am Left message on patient`s recorder or with a family member 12/17/2006 at 09:27 am. SECTION 2: RN/REFRIGERATION MECHANIC RESPONSE: cameron 12/17/06 at 09:46 am 1.Per [facility] referral note, the ENT is , gave name to dad. 2.BS11 cough. Advise vaporizer, elevate HOB, increase fluids, saline/suction, nebs q 4-6 hrs, c/b if no improvement. Called pharmacy at 12/17/06 at 10:46 am. Rx called to [facility]. [facility] MEDICATIONS: ALBUTEROL SULFATE INHALATION NEBULIZATION SOLUTION (2.5 MG/3ML) 0.083% BOXES, 1 vial with neb q4-6hprn, 1 Dispensed, 2 Fills, status: NEW PRESCRIPTION, 12/17/2006. Electronically Signed by: Levon Mitchell DO on Sunday, December 17, 2006 documented in this encounter Plan of Treatment Not on file documented as of this encounter Visit Diagnoses Not on filedocumented in this encounter Additional Health Concerns Infection Onset Date Last Indicated Resolved Time R/O COVID-19 08/21/2021 08/21/2021 08/22/2021 8:40 PM GRAZING AIDE COVID-19 08/21/2021 08/21/2021 09/20/2021 1:16 AM GRAZING AIDE documented as of this encounter Care Teams Wood Boatbuilder Apprentice Relationship Specialty Start Date End Date Levon Mitchell DO PCP - General Pediatrics 12/22/09 documented as of this encounter
--- OUTSIDE RECORDS SUMMARY | 2025-03-05 00:38 | XMS_ITS | Encounter Summary ---
Author Organization [facility] Address [address] [place] [address] Care Team Providers Care Lineman Apprentice Name Role Phone Levon Mitchell DO Primary Care Provider [phone] Encounter Details Date Type Department Care Team (Late st Contact Info) Description 08/22/2006 Outpatient Historical [facility] Pediatrics - [address] [place] [address] [place] [address] Dominguez [address] [place] [phone] Social History Tobacco Use Types Packs/Day Years Used Date Smoking Tobacco: Never Assessed Comments Unknown Sex and Gender Information Value Date Recorded Sex Assigned at Not on file Legal Sex Female 4:46 AM TOOL TROUBLE SHOOTER Gender Identity Not on file Sexual Orientation Not on file documented as of this encounter Plan of Treatment Not on file documented as of this encounter Visit Diagnoses Not on filedocumented in this encounter Additional Health Concerns Infection Onset Date Last Indicated Resolved Time R/O COVID-19 08/21/2021 08/21/2021 08/22/2021 8:40 PM TOOL TROUBLE SHOOTER COVID-19 08/21/2021 08/21/2021 09/20/2021 1:16 AM TOOL TROUBLE SHOOTER documented as of this encounter Care Teams Lineman Apprentice Relationship Specialty Start Date End Date Levon Mitchell DO PCP - General Pediatrics 12/22/09 documented as of this encounter
--- OUTSIDE RECORDS SUMMARY | 2025-03-05 00:38 | XMS_ITS | Encounter Summary ---
Author Organization [facility] Address [address] [place] [address] Care Team Providers Care Enrollment Clerk Name Role Phone Levon Mitchell DO Primary Care Provider [phone] Encounter Details Date Type Department Care Team (Late st Contact Info) Description 05/27/2006 Outpatient Historical [facility] Pediatrics - [address] [place] [address] [place] [address] Dominguez [address] [place] [phone] Social History Tobacco Use Types Packs/Day Years Used Date Smoking Tobacco: Never Assessed Comments Unknown Sex and Gender Information Value Date Recorded Sex Assigned at Not on file Legal Sex Female 4:46 AM CERAMICS TEACHER Gender Identity Not on file Sexual Orientation Not on file documented as of this encounter Plan of Treatment Not on file documented as of this encounter Visit Diagnoses Not on filedocumented in this encounter Additional Health Concerns Infection Onset Date Last Indicated Resolved Time R/O COVID-19 08/21/2021 08/21/2021 08/22/2021 8:40 PM CERAMICS TEACHER COVID-19 08/21/2021 08/21/2021 09/20/2021 1:16 AM CERAMICS TEACHER documented as of this encounter Care Teams Enrollment Clerk Relationship Specialty Start Date End Date Levon Mitchell DO PCP - General Pediatrics 12/22/09 documented as of this encounter
--- OUTSIDE RECORDS SUMMARY | 2025-03-05 00:38 | XMS_ITS | Encounter Summary ---
Author Organization [facility] Address [address] [place] [address] Care Team Providers Care Account Executive Healthcare Name Role Phone Levon Mitchell DO Primary Care Provider [phone] Encounter Details Date Type Department Care Team (Late st Contact Info) Description 03/06/2007 Outpatient Historical [facility] Pediatrics - [address] [place] [address] [place] [address] Dominguez [address] [place] [phone] Social History Tobacco Use Types Packs/Day Years Used Date Smoking Tobacco: Never Assessed Comments Unknown Sex and Gender Information Value Date Recorded Sex Assigned at Not on file Legal Sex Female 4:46 AM INDEPENDENT VIDEO PRODUCER Gender Identity Not on file Sexual Orientation Not on file documented as of this encounter Plan of Treatment Not on file documented as of this encounter Visit Diagnoses Not on filedocumented in this encounter Additional Health Concerns Infection Onset Date Last Indicated Resolved Time R/O COVID-19 08/21/2021 08/21/2021 08/22/2021 8:40 PM INDEPENDENT VIDEO PRODUCER COVID-19 08/21/2021 08/21/2021 09/20/2021 1:16 AM INDEPENDENT VIDEO PRODUCER documented as of this encounter Care Teams Account Executive Healthcare Relationship Specialty Start Date End Date Levon Mitchell DO PCP - General Pediatrics 12/22/09 documented as of this encounter
--- OUTSIDE RECORDS SUMMARY | 2025-03-05 00:38 | XMS_ITS | Encounter Summary ---
Author Organization [facility] Address [address] [place] [address] Care Team Providers Care Manager Photo Name Role Phone Levon Mitchell DO Primary Care Provider [phone] Reason for Visit * Reason Onset Date Comments [facility] 09/21/2012 NOC TRIAGE Encounter Details Date Type Department Care Team (Late st Contact Info) Description 09/21/2012 Telephone [facility] Nurse public relations [address] [place] [phone] [place] [address] Dominguez [address] [place] [phone] [facility] (NOC TRIAGE ) Social History Tobacco Use Types Packs/Day Years Used Date Smoking Tobacco: Never Assessed Comments Unknown Sex and Gender Information Value Date Recorded Sex Assigned at Not on file Legal Sex Female 4:46 AM CLINICAL DATA PROGRAMMER Gender Identity Not on file Sexual Orientation Not on file documented as of this encounter Miscellaneous Notes * Telephone Encounter - Lyla Cintron - 09/21/2012 8:59 AM CST Presenting Problem: Mom Amie My daughter's eyes are red. Guideline Used: Eye pus or discharge Deciding Statement: eye with yellow/green discharge or eyelashes stuck together AND standing order to call in a/b Disposition: Home care Intention: Home care w/ E scribe Started with yellow/green eye drainage 1 day(s) ago. Whites of eyes are pink: yes. bilateral eye(s)is affected. Fever: no. Injury or trauma to eye: no. Swelling of eyelids: no. Other symptoms: no. Is allergic to sulfa/septra/bactrim?: no Wt Readings from Last 1 Encounters: 08/06/11 53 lb (24.041 kg) (88.70%*) * Growth percentiles are based on [facility] 2-20 Years data. Mother states 60 pds Protocol to be used for children ages 1 year and older. If sclera are red, has yellow/green eye drainage but no fever or cold symptoms and no history of eye injury, okay to call out Polysporin. Mild swelling is okay, severe swelling call provider quality controller. If allergic to sulfa page provider quality controller. Parent/Guardian should call the office if symptoms don't improve in 2-3 days, sooner if they worsen. Polytrim opthalmic solution (Polymyxin B sulfate and trimethoprim sulfate) 1 drop to affected eye, QID a day for 7 days Dispense 1 bottle, no refills, generic is okay ICAL DATA PROGRAMMER documented in this encounter Plan of Treatment Not on file documented as of this encounter Visit Diagnoses Not on filedocumented in this encounter Additional Health Concerns Infection Onset Date Last Indicated Resolved Time R/O COVID-19 08/21/2021 08/21/2021 08/22/2021 8:40 PM CLINICAL DATA PROGRAMMER COVID-19 08/21/2021 08/21/2021 09/20/2021 1:16 AM CLINICAL DATA PROGRAMMER documented as of this encounter Care Teams Manager Photo Relationship Specialty Start Date End Date Levon Mitchell DO PCP - General Pediatrics 12/22/09 documented as of this encounter
--- OUTSIDE RECORDS SUMMARY | 2025-03-05 00:38 | XMS_ITS | Encounter Summary ---
Author Organization [facility] Address [address] [place] [address] Care Team Providers Care Boiling House Oiler Name Role Phone Levon Mitchell DO Primary Care Provider [phone] Encounter Details Date Type Department Care Team (Late st Contact Info) Description 01/13/2008 Orders Only [facility] Pediatrics - [place] [address] [place] [address] [place] [address] [place] [address] Dominguez [address] [place] [phone] Social History Tobacco Use Types Packs/Day Years Used Date Smoking Tobacco: Never Assessed Comments Unknown Sex and Gender Information Value Date Recorded Sex Assigned at Not on file Legal Sex Female 4:46 AM LEPIDOPTERIST Gender Identity Not on file Sexual Orientation Not on file documented as of this encounter Plan of Treatment Not on file documented as of this encounter Visit Diagnoses Not on filedocumented in this encounter Additional Health Concerns Infection Onset Date Last Indicated Resolved Time R/O COVID-19 08/21/2021 08/21/2021 08/22/2021 8:40 PM LEPIDOPTERIST COVID-19 08/21/2021 08/21/2021 09/20/2021 1:16 AM LEPIDOPTERIST documented as of this encounter Care Teams Boiling House Oiler Relationship Specialty Start Date End Date Levon Mitchell DO PCP - General Pediatrics 12/22/09 documented as of this encounter
--- OUTSIDE RECORDS SUMMARY | 2025-03-05 00:39 | XMS_ITS | Encounter Summary ---
Author Organization [facility] Address [address] [place] [address] Care Team Providers Care Upsetter Name Role Phone Levon Mitchell DO Primary Care Provider [phone] Encounter Details Date Type Department Care Team (Late st Contact Info) Description 06/20/2007 Orders Only [facility] Pediatrics - [place] [address] [place] [address] [place] [address] [place] [address] Dominguez [address] [place] [phone] Social History Tobacco Use Types Packs/Day Years Used Date Smoking Tobacco: Never Assessed Comments Unknown Sex and Gender Information Value Date Recorded Sex Assigned at Not on file Legal Sex Female 4:46 AM ASSEMBLED WOOD PRODUCTS REPAIRER Gender Identity Not on file Sexual Orientation Not on file documented as of this encounter Progress Notes * Levon Mitchell DO - 01/01/2008 3:49 PM CDT PATIENT'S AGE: 1 yr, 7 mths, 1 wk, 4 days VITALS: WEIGHT: 11.92486 kg LENGTH/HEIGHT: 34in HEAD CIRCUM: 18.75in NURSE NAME: Caitie Clayton M ACCOMPANIED BY: Father. HISTORY PROVIDED BY: Father. ALLERGIES: CURRENT ALLERGY LIST: NKDA MEDICATIONS: albuterol, zantac CHIEF COMPLAINT: The child is here for 18 month check up. Please see scanned Well Visit form for same date of service. OFFICE PROCEDURE: INJECTIONS & IMMUNIZATIONS: . DTAP, 0.5, MILLILITERS, INTRAMUSCULAR INJECTION, Left Thigh, given by [facility] on 06/20/2007; consentform signed, literature given; HIB,PRP-TCONJ/4 DOSE, 0.5, MILLILITERS, INTRAMUSCULAR INJECTION, Left Thigh, given by [facility] on 06/20/2007; consent form signed, literature given; INFLUENZA 6- 35 MONTHS, 0.25, MILLILITERS, INTRAMUSCULAR INJECTION, Right Thigh, given by [facility] on06/20/2007; consent form signed, literature given; ASSESSMENT/PLAN: V20.2-HEALTH SUPERVISION OF OR CHILD LAB ORDERS: Order number: [id number] Test Ordered: INJ-ADMIN 1 VACCINE W/PHYS SOAKERS SUPERVISOR <8 YOA 11819 Order number: [id number] Test Ordered: INJ-ADMIN 2 ADDTL W/ PHYS SOAKERS SUPERVISOR < 8 YOA [id number] Order number: [id number] Test Ordered: INJ-DTAP 03604 Order number: [id number] Test Ordered: INJ-HIB (4 DOSE SCHED) 40858 Order number: [id number] Test Ordered: INJ-INFLUENZA, PRESERVATIVE FREE 6-35 MONTH OLD [address] RETURN VISIT/GUIDANCE: Differential diagnosis was discussed. Patient is instructed to call with concerns or worries about condition. Patient is instructed to call with concerns or changes in condition. Patient instructed to return in 6 months. Electronically Signed by: Levon Mitchell DO on June documented in this encounter Plan of Treatment Not on file documented as of this encounter Visit Diagnoses Not on filedocumented in this encounter Additional Health Concerns Infection Onset Date Last Indicated Resolved Time R/O COVID-19 08/21/2021 08/21/2021 08/22/2021 8:40 PM ASSEMBLED WOOD PRODUCTS REPAIRER COVID-19 08/21/2021 08/21/2021 09/20/2021 1:16 AM ASSEMBLED WOOD PRODUCTS REPAIRER documented as of this encounter Care Teams Upsetter Relationship Specialty Start Date End Date Levon Mitchell DO PCP - General Pediatrics 12/22/09 documented as of this encounter
--- OUTSIDE RECORDS SUMMARY | 2025-03-05 00:39 | XMS_ITS | Encounter Summary ---
Author Organization [facility] Address [address] [facility] Attn: [place] [address] Care Team Providers Care Channel Sales Director Name Role Phone KarenLevon julio Primary Care Provider [phone] Encounter Details Date Type Department Care Team (Late st Contact Info) Description 2005 Inpatient Historical Mindy Willard MD [address] [facility] [address] [place] [address] Courtney Calderón MD [address] [facility] [address] [place] [address] Single Liveborn, Born in Hospital, Delivered by Delivery (Primary Dx) Social History Tobacco Use Types Packs/Day Years Used Date Smoking Tobacco: Never Assessed Comments Unknown Sex and Gender Information Value Date Recorded Sex Assigned at Not on file Legal Sex Female 4:46 AM TEAR DOWN WORKER Gender Identity Not on file Sexual Orientation Not on file documented as of this encounter Plan of Treatment Not on file documented as of this encounter Visit Diagnoses Diagnosis Single liveborn, born in hospital, delivered by delivery- Primary documented in this encounter Additional Health Concerns Infection Onset Date Last Indicated Resolved Time R/O COVID-19 08/21/2021 08/21/2021 08/22/2021 8:40 PM TEAR DOWN WORKER COVID-19 08/21/2021 08/21/2021 09/20/2021 1:16 AM TEAR DOWN WORKER documented as of this encounter Care Teams Channel Sales Director Relationship Specialty Start Date End Date Levon Mitchell DO PCP - General Pediatrics 12/22/09 documented as of this encounter
--- OUTSIDE RECORDS SUMMARY | 2025-03-05 00:39 | XMS_ITS | Encounter Summary ---
Author Organization [facility] Address [address] [place] [address] Care Team Providers Care Cover Making Machine Operator Name Role Phone Levon Mitchell DO Primary Care Provider [phone] Encounter Details Date Type Department Care Team (Late st Contact Info) Description 05/01/2007 Orders Only [facility] Pediatrics - [address] [place] [address] [place] [address] Dominguez [address] [place] [phone] Social History Tobacco Use Types Packs/Day Years Used Date Smoking Tobacco: Never Assessed Comments Unknown Sex and Gender Information Value Date Recorded Sex Assigned at Not on file Legal Sex Female 4:46 AM HOTSHOT SUPERINTENDENT Gender Identity Not on file Sexual Orientation Not on file documented as of this encounter Progress Notes * Levon Mitchell DO - 01/02/2008 5:01 PM CDT TIME:09:53 am PATIENT`S HOME PHONE: PATIENT`S WORK PHONE: PATIENT`S INSURANCE: KAVEH WHO TOOK THE CALL: Sara Tapia M PATIENT'S AGE: 1 yr, 5 mths, 3 wks, 1 day GENERAL INFORMATION PCP: gr. PEREZ PHONE NUMBER: [phone] WHO CALLED: Patient`s mother called.maria m PHARMACY NUMBER: [phone] PROBLEMS: in the past was on zantac for reflux. was weaned off in mar. lately it seems like she is having trouble with it again. mom has been doing mylanta at [facility]. it doesn't last all night. getting up and wants to be upright. she swallows it down. cries when she lays down like she is scared its going to hurt. mom wants to know if she can go back on the zantac? SECTION 1: RN/VIDEO TAPE DUPLICATOR RESPONSE: isabell 05/01/07 at 10:10 am Instruct patient to call if symptoms persist. Nurse response:. b/s spitting up. will ck with DOCTOR`S RESPONSE: savannah 05/01/07 at 10:14 am yes SECTION 2: RN/VIDEO TAPE DUPLICATOR RESPONSE: isabell 05/01/07 at 10:16 am mom aware Called pharmacy at 05/01/07 at 10:19 am. ollie MEDICATIONS: ZANTAC ORAL SYRUP 75 MG/5ML, 1ml po tid, 30 Duration/Days Supply, status: NEW PRESCRIPTION, 05/01/2007. Electronically Signed by: Claudine Gordon RN on April documented in this encounter Plan of Treatment Not on file documented as of this encounter Visit Diagnoses Not on filedocumented in this encounter Additional Health Concerns Infection Onset Date Last Indicated Resolved Time R/O COVID-19 08/21/2021 08/21/2021 08/22/2021 8:40 PM HOTSHOT SUPERINTENDENT COVID-19 08/21/2021 08/21/2021 09/20/2021 1:16 AM HOTSHOT SUPERINTENDENT documented as of this encounter Care Teams Cover Making Machine Operator Relationship Specialty Start Date End Date Levon Mitchell DO PCP - General Pediatrics 12/22/09 documented as of this encounter
--- OUTSIDE RECORDS SUMMARY | 2025-03-05 00:39 | XMS_ITS | Encounter Summary ---
Author Organization [facility] Address [address] [place] [address] Care Team Providers Care Candy Butcher Name Role Phone Levon Mitchell DO Primary Care Provider [phone] Encounter Details Date Type Department Care Team (Late st Contact Info) Description 04/15/2006 Outpatient Historical [facility] Pediatrics - [address] [place] [address] [place] [address] Doming[address] [place] [phone] Social History Tobacco Use Types Packs/Day Years Used Date Smoking Tobacco: Never Assessed Comments Unknown Sex and Gender Information Value Date Recorded Sex Assigned at Not on file Legal Sex Female 4:46 AM GLEASON GEAR GENERATOR Gender Identity Not on file Sexual Orientation Not on file documented as of this encounter Plan of Treatment Not on file documented as of this encounter Visit Diagnoses Not on filedocumented in this encounter Additional Health Concerns Infection Onset Date Last Indicated Resolved Time R/O COVID-19 08/21/2021 08/21/2021 08/22/2021 8:40 PM GLEASON GEAR GENERATOR COVID-19 08/21/2021 08/21/2021 09/20/2021 1:16 AM GLEASON GEAR GENERATOR documented as of this encounter Care Teams Candy Butcher Relationship Specialty Start Date End Date Levon Mitchell DO PCP - General Pediatrics 12/22/09 documented as of this encounter
--- OUTSIDE RECORDS SUMMARY | 2025-03-05 00:39 | XMS_ITS | Encounter Summary ---
Author Organization [facility] Address [address] [place] [address] Care Team Providers Care Research Hydrologist Name Role Phone Levon Mitchell DO Primary Care Provider [phone] Encounter Details Date Type Department Care Team (Late st Contact Info) Description 06/20/2007 Outpatient Historical [facility] Pediatrics - [address] [place] [address] [place] [address] [place] [phone] Social History Tobacco Use Types Packs/Day Years Used Date Smoking Tobacco: Never Assessed Comments Unknown Sex and Gender Information Value Date Recorded Sex Assigned at Not on file Legal Sex Female 4:46 AM INVESTIGATIONS DIRECTOR Gender Identity Not on file Sexual Orientation Not on file documented as of this encounter Plan of Treatment Not on file documented as of this encounter Visit Diagnoses Not on filedocumented in this encounter Additional Health Concerns Infection Onset Date Last Indicated Resolved Time R/O COVID-19 08/21/2021 08/21/2021 08/22/2021 8:40 PM INVESTIGATIONS DIRECTOR COVID-19 08/21/2021 08/21/2021 09/20/2021 1:16 AM INVESTIGATIONS DIRECTOR documented as of this encounter Care Teams Research Hydrologist Relationship Specialty Start Date End Date Levon Mitchell DO PCP - General Pediatrics 12/22/09 documented as of this encounter
--- OUTSIDE RECORDS SUMMARY | 2025-03-05 00:39 | XMS_ITS | Encounter Summary ---
Author Organization [facility] Address [address] [place] [address] Care Team Providers Care Batch Still Operator Name Role Phone Levon Mitchell DO Primary Care Provider [phone] Encounter Details Date Type Department Care Team (Late st Contact Info) Description 2005 Outpatient Historical [facility] [address] [place] [address] Gwendolyn Saldaña AU.D [address] [place] [address] Social History Tobacco Use Types Packs/Day Years Used Date Smoking Tobacco: Never Assessed Comments Unknown Sex and Gender Information Value Date Recorded Sex Assigned at Not on file Legal Sex Female 4:[address] SERVICE Gender Identity Not on file Sexual Orientation Not on file documented as of this encounter Plan of Treatment Not on file documented as of this encounter Visit Diagnoses Not on filedocumented in this encounter Additional Health Concerns Infection Onset Date Last Indicated Resolved Time R/O COVID-19 08/21/2021 08/21/2021 08/22/2021 8:[address] SERVICE COVID-19 08/21/2021 08/21/2021 09/20/2021 1:[address] SERVICE documented as of this encounter Care Teams Batch Still Operator Relationship Specialty Start Date End Date Levon Mitchell DO PCP - General Pediatrics 12/22/09 documented as of this encounter
--- OUTSIDE RECORDS SUMMARY | 2025-03-05 00:39 | XMS_ITS | Encounter Summary ---
Author Organization [facility] Address [address] [place] [address] Care Team Providers Care Vamp Marker Name Role Phone Levon Mitchell DO Primary Care Provider [phone] Encounter Details Date Type Department Care Team (Late st Contact Info) Description 05/02/2006 Outpatient Historical [facility] [place] [address] [place] [address] [place] [phone] [place] [address] [place] [address] Social History Tobacco Use Types Packs/Day Years Used Date Smoking Tobacco: Never Assessed Comments Unknown Sex and Gender Information Value Date Recorded Sex Assigned at Not on file Legal Sex Female 4:46 AM SYSTEMS LEAD Gender Identity Not on file Sexual Orientation Not on file documented as of this encounter Last Filed Vital Signs Vital Sign Reading Time Taken Comments Blood Pressure - - Pulse 128 05/02/2006 11:50 AM CDT Temperature 36.7 C (98 F) 05/02/2006 11:50 AM CDT Respiratory Rate 26 05/02/2006 11:50 AM CDT Oxygen Saturation - - Inhaled Oxygen Concentration - - Weight 7.711 kg (17 lb) 05/02/2006 11:50 AM CDT Height - - Body Mass Index - - documented in this encounter Plan of Treatment Not on file documented as of this encounter Visit Diagnoses Not on filedocumented in this encounter Additional Health Concerns Infection Onset Date Last Indicated Resolved Time R/O COVID-19 08/21/202108/21/2021 08/22/2021 8:40 PM SYSTEMS LEAD COVID-08/21/2021 08/21/2021 09/20/2021 1:16 AM SYSTEMS LEAD documented as of this encounter Care Teams Vamp Marker Relationship Specialty Start Date End Date Levon Mitchell DO PCP - General Pediatrics 12/22/09 documented as of this encounter
--- OUTSIDE RECORDS SUMMARY | 2025-03-05 00:39 | XMS_ITS | Encounter Summary ---
Author Organization [facility] Address [address] [place] [address] Care Team Providers Care Court Worker Name Role Phone Levon Mitchell DO Primary Care Provider [phone] Encounter Details Date Type Department Care Team (Late st Contact Info) Description 2005 Outpatient Historical [facility] - [facility] [place] [address] [address] Dilan Clemons MD [address] [place] [address] Social History Tobacco Use Types Packs/Day Years Used Date Smoking Tobacco: Never Assessed Comments Unknown Sex and Gender Information Value Date Recorded Sex Assigned at Not on file Legal Sex Female 4:46 AM TELEVISION JOURNALIST Gender Identity Not on file Sexual Orientation Not on file documented as of this encounter Plan of Treatment Not on file documented as of this encounter Visit Diagnoses Not on filedocumented in this encounter Additional Health Concerns Infection Onset Date Last Indicated Resolved Time R/O COVID-19 08/21/2021 08/21/2021 08/22/2021 8:40 PM TELEVISION JOURNALIST COVID-19 08/21/2021 08/21/2021 09/20/2021 1:16 AM TELEVISION JOURNALIST documented as of this encounter Care Teams Court Worker Relationship Specialty Start Date End Date Levon Mitchell DO PCP - General Pediatrics 12/22/09 documented as of this encounter
--- OUTSIDE RECORDS SUMMARY | 2025-03-05 00:39 | XMS_ITS | Encounter Summary ---
Author Organization [facility] Address [address] [place] [address] Care Team Providers Care Plate And Frame Filter Operator Name Role Phone Levon Mitchell DO Primary Care Provider [phone] Encounter Details Date Type Department Care Team (Late st Contact Info) Description 2005 Outpatient Historical [facility] - [address] [place] [address] [place] [address] [place] [address] Social History Tobacco Use Types Packs/Day Years Used Date Smoking Tobacco: Never Assessed Comments Unknown Sex and Gender Information Value Date Recorded Sex Assigned at Not on file Legal Sex Female 4:46 AM POLE CUTTER Gender Identity Not on file Sexual Orientation Not on file documented as of this encounter Last Filed Vital Signs Vital Sign Reading Time Taken Comments Blood Pressure - - Pulse - - Temperature - - Respiratory Rate - - Oxygen Saturation - - Inhaled Oxygen Concentration - - Weight 4.026 kg (8 lb 14 oz) 2005 11:15 AM POLE CUTTER Height 54 cm (1' 9.25) 2005 11:15 AM POLE CUTTER Wdowwo-lur-Kweiko Percentile 24.20% 2005 1 1:15 AM POLE CUTTER Growth Chart: WHO (Girls, 0- 2 years) Head Circumference 36.2 cm 2005 11:15 AM CS T Head Circumference Percentile 91.46% 2005 11:15 AM POLE CUTTER Growth Chart: WHO (Girls, 0- 2 years) Body Mass Index 13.82 2005 11:15 AM POLE CUTTER Body Mass Index Percentile 54.96% 2005 11: 15 AM POLE CUTTER Growth Chart: WHO (Girls, 0- 2 years) documented in this encounter Plan of Treatment Not on file documented as of this encounter Visit Diagnoses Not on filedocumented in this encounter Additional Health Concerns Infection Onset Date Last Indicated Resolved Time R/O COVID-19 08/21/2021 08/21/2021 08/22/2021 8:40 PM POLE CUTTER COVID-19 08/21/2021 08/21/2021 09/20/2021 1:16 AM POLE CUTTER documented as of this encounter Care Teams Plate And Frame Filter Operator Relationship Specialty Start Date End Date Levon Mitchell DO PCP - General Pediatrics 12/22/09 documented as of this encounter
--- OUTSIDE RECORDS SUMMARY | 2025-03-05 00:39 | XMS_ITS | Encounter Summary ---
Author Organization [facility] Address [address] [place] [address] Care Team Providers Care Materials Branch Chief Name Role Phone Levon Mitchell DO Primary Care Provider [phone] Encounter Details Date Type Department Care Team (Late st Contact Info) Description 03/11/2006 Outpatient Historical [facility] - [place] [address] [place] [address] [place] [phone] [place] [address] [place] [address] Social History Tobacco Use Types Packs/Day Years Used Date Smoking Tobacco: Never Assessed Comments Unknown Sex and Gender Information Value Date Recorded Sex Assigned at Not on file Legal Sex Female 4:46 AM ENERGY PROJECTS LEAD Gender Identity Not on file Sexual Orientation Not on file documented as of this encounter Last Filed Vital Signs Vital Sign Reading Time Taken Comments Blood Pressure - - Pulse 124 03/11/2006 9:30 AM CDT Temperature 36.9 C (98.5 F) 03/11/2006 9:30 AM CDT Respiratory Rate - - Oxygen Saturation - - Inhaled Oxygen Concentration - - Weight 7.059 kg (15 lb 9 oz) 03/11/2006 9:30 AM CDT Height - - Body Mass Index - - documented in this encounter Plan of Treatment Not on file documented as of this encounter Visit Diagnoses Not on filedocumented in this encounter Additional Health Concerns Infection Onset Date Last Indicated Resolved Time R/O COVID-19 08/21/2021 08/21/2021 08/22/2021 8:40 PM ENERGY PROJECTS LEAD COVID-19 08/21/2021 08/21/2021 09/20/2021 1:16 AM ENERGY PROJECTS LEAD documented as of this encounter Care Teams Materials Branch Chief Relationship Specialty Start Date End Date Levon Mitchell DO PCP - General Pediatrics 12/22/09 documented as of this encounter
--- OUTSIDE RECORDS SUMMARY | 2025-03-05 00:39 | XMS_ITS | Encounter Summary ---
Author Organization [facility] Address [address] [place] [address] Care Team Providers Care Direct Support Professional Name Role Phone Levon Mitchell DO Primary Care Provider [phone] Encounter Details Date Type Department Care Team (Late st Contact Info) Description 04/15/2006 Outpatient Historical [facility] Pediatrics - [address] [place] [address] [place] [address] [place] [phone] Social History Tobacco Use Types Packs/Day Years Used Date Smoking Tobacco: Never Assessed Comments Unknown Sex and Gender Information Value Date Recorded Sex Assigned at Not on file Legal Sex Female 4:46 AM CABINET FINISHER Gender Identity Not on file Sexual Orientation Not on file documented as of this encounter Plan of Treatment Not on file documented as of this encounter Visit Diagnoses Not on filedocumented in this encounter Additional Health Concerns Infection Onset Date Last Indicated Resolved Time R/O COVID-19 08/21/2021 08/21/2021 08/22/2021 8:40 PM CABINET FINISHER COVID-19 08/21/2021 08/21/2021 09/20/2021 1:16 AM CABINET FINISHER documented as of this encounter Care Teams Direct Support Professional Relationship Specialty Start Date End Date Levon Mitchell DO PCP - General Pediatrics 12/22/09 documented as of this encounter
--- OUTSIDE RECORDS SUMMARY | 2025-03-05 00:39 | XMS_ITS | Encounter Summary ---
Author Organization [facility] Address [address] [place] [address] Care Team Providers Care Studio Receptionist Name Role Phone Levon Mitchell DO Primary Care Provider [phone] Encounter Details Date Type Department Care Team (Late st Contact Info) Description 03/12/2006 Orders Only [facility] [place] [address] [place] [address] [place] [address] [place] [address] [place] [phone] Social History Tobacco Use Types Packs/Day Years Used Date Smoking Tobacco: Never Assessed Comments Unknown Sex and Gender Information Value Date Recorded Sex Assigned at Not on file Legal Sex Female 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 PEREZ PHONE NUMBER: [phone] WHO CALLED: Patient`s mother called. maria m PHARMACY NUMBER: [phone] PROBLEMS: Very crabby, woke up 4x last night screaming, screamed for 1 hr this am. Afeb, no rash, no blisters on hands or feet, no cold sx. Usually takes 6oz bottles but now mom has to push to get 3-4 oz down, screams and pushes bottle away but seems hungry all the time. Diapers wet but not as wet as usual. Mom has not given any tylenol because she said told her not to give any tylenol. Mom does not want to come back into office today. SECTION 1: based on exam yesterday with the two shallow ulcers on the throat noted I would use mylanta 1cc mixed with benadryl 0.5cc as a slurry and give 0.5cc of this prior to feeds to see if baby eats. be sure that she is getting at least 1cc of zantac tid if baby has a fever or worsens really needs to be seen, ok to give tylenol today RN/ANIMAL HOSPITAL CLERK RESPONSE: cameron 03/12/06 at 08:35 am Will review with and c/b. ? DOCTOR`S RESPONSE: yesenia 03/12/06 at 08:36 am SECTION 2: RN/ANIMAL HOSPITAL CLERK RESPONSE: cameron 03/12/06 at 09:07 am Mom notified of above, agreeable. Increase in Zantac called out. Sx of dehydration reviewed. To c/b if no improvement. Called pharmacy at 03/12/06 at 09:16 am. Rx called to [facility] MEDICATION[facility]: ZANTAC ORAL SYRUP 75 MG/5ML, 1ml po tid, 3 Fills, 30 Duration/Days Supply, status: NEW PRESCRIPTION, 03/12/2006. Electronically Signed by: Renu Covington on Sunday, March 12, 2006 documented in this encounter Plan of Treatment Not on file documented as of this encounter Visit Diagnoses Not on filedocumented in this encounter Additional Health Concerns Infection Onset Date Last Indicated Resolved Time R/O COVID-08/21/2021 08/21/2021 08/22/2021 8:40 PM VETERINARY RADIOLOGIST COVID-19 08/21/2021 08/21/2021 09/20/2021 1:16 AM VETERINARY RADIOLOGIST documented as of this encounter Care Teams Studio Receptionist Relationship Specialty Start Date End Date Levon Mitchell DO PCP - General Pediatrics 12/22/09 documented as of this encounter
--- OUTSIDE RECORDS SUMMARY | 2025-03-05 00:39 | XMS_ITS | Continuity of Care Document ---
Author Organization [facility] Address [address] [place] [address] Phone Care Team Providers Care Tire Specialist Name Role Phone Daisha HARDING, Cheshil Unavailable Unavailable Allergies, Adverse Reactions, Alerts Substance Reaction Status Criticality No Known Allergies Active No Inform ation Medications Medication Instructions Dosage Effective Dates (start - stop) Status Comments EpiPen 0.3 mg/0.3 mL injection, auto-injector inject 0.3 milliliter by intramuscular route once as needed for anaphylaxis 0.3 MG - Active albuterol sulfate HFA 90 mcg/actuation aerosol inhaler inhale 2 puff by Inhalation route every 4 - 6 hours as needed for cough, wheeze, and shortness of breath. Also, use 20 min before exercise 2 puff - Active Zyrtec 10 mg tablet take 1 tablet by ora l route 2 times every day 10 MG - Active Benadryl 25 mg capsule take 2 capsule by oral route every evening as needed 50 MG - Active Nasacort 55 mcg nasal spray aerosol spray 2 spray by intranasal route every day in each nostril 110 MCG - Active Procedures Procedure Date Est (Level 4) OFFICE/OUTPATIENT VISIT Ju PF Pre/Post Bronchodlator New (Level 4) OFFICE/OUTPATIENT VISIT Claudia Advance Directives Directive Yes / No Effective Date File Name No Information Encounters Encounter Description Practice Location Reason(s) For Visit Diagnoses Date Provider Providers Copied on Encounter [facility], [address] [place] [address], [address] [place] [address], tel:[phone] [facility] No Information 3 Daisha Cheshil. [address], [place], [place], [facility], . tel:[phone] Referring Provider: Levon Knapp, [address] [place] [address], [place], [address]. tel:[phone] Est (Level 4) OFFICE/OUTPA TIENT VISIT [facility], [address] [place] [address], [id number], tel:[phone] [facility] lab review (chief complaint) Other adverse food reaction, subsequent encounterOther allergic rhinitisExercise induced bronchospasm 3 Daisha Cheshil. [address], [place], [place], [facility], [place]. tel:[phone] Referring Provider: Levon Knapp, [address] [place] [address], [address]. tel:[phone] New (Level 4) OFFICE/OUTPA TIENT VISIT [facility], [address] [place] [address], [id number], tel:[phone] [facility] allergy symptoms (chief complaint) Body mass index (BMI) 31.0-31.9, adultChronic rhinitisExercise induced bronchospasmOthe r adverse food reaction, initial encounter 3 Daisha Cheshil. [address], [place], [address], [place]. tel:[phone] Referring Provider: Levon Knapp, [address] [place] [address], [place], [address]. tel:[phone] Family History Family Member Type Diagnosis Age At Onset Problem Family history of Asthma Maternal grandfather Problem Allergic rhinitis Mother Problem Allergic rhinitis Mother Problem Asthma Sister Problem Allergic rhinitis Problem No family history of Lupus e rythematosus Problem No family histor y of Family history of rheumatoid arthritis Payers Payer name Insurance type Covered alliance party ID Lindy melchor(s) Michelle Toure [id number] Social History Type Description Quantity Date Captured Comments Sex Female Smoking Status No Information Chief Complaint And Reason For Visit No Information Reason For Referral Reason For Referral No Information History Of Present Illness Encounter Date Complaint History Of Prese nt Illness lab review LV: 12/31/22She h as food reactions, allergic rhinitis, and EIB. She (and mom) present for follow up via telemedicine on the platform [employer] (audio/video).Food ReactionsShe avoids tree nuts except hazelnut. Interval exposures: none.She has an epinephrine auto-injector (epipen or auvi-q) Allergic RhinitisShe is on Flonase 2 SEN daily PRN - mom notes the patient does not consistently use her medication. They have 2 dogs that sleep in the patient's room.EIBShe is on albuterol PRN.Data12/31/22Cashew IgE: 87.9-Jami o3: 47.1Pistachio IgE: 72.3 Chester IgE: 6.52-Jug r1: 4.85-Jug r3: UDPecan IgE: 1.72Brazil nut IgE: 4.66-Nadir e1: UDMacadamia IgE: 1.34Almond IgE: 3.86(UD = Undetectable)Environmental Immunocaps: +cat, dog, cockroach, trees, grass, ragweed/other weeds, moldTotal IgE 254 allergy symptoms Asthma - ACT: 2 01/10Her symptoms do worsen during allergy seasons, though she has not had issues in a while. She has never been on a daily inhaler. Most of her symptoms, historically, have been exercise-induced. She was diagnosed in director of patient care. The patient has never been hospitalized for asthma. Currently, they have no exertional limitations 2/2 asthma symptoms. They deny nocturnal awakenings with cough/wheeze. One visits and with one oral steroid burst because of asthma in the last year.Adverse Food ReactionNut Mix - She ate a mix with cashew, walnut, ?pistachio around age 2-3 yo. She developed lip angioedema. About 1 year ago, she ate cashew milk-based ice cream and immediately (after one bite) developed throat tightness and repetitive vomiting. She was treated with benadryl. They did not go to the or the ED.[place] - She ate a c utie (mandarin orange) and developed some throat pruritus in March and Apr 2022. She tolerates peanut. She avoids all tree nuts except for Hazelnut (in Nutella) She does have an epinephrine auto-injector (epipen). RhinitisThe patient has a history of perennial rhinitis with seasonal worsening in spring/fall. The symptoms include sneezing, rhinorrhea (ant/post), nasal congestion w/ eyelid angioedema, ocular pruritus, and tearing. Cat is suspected as a trigger. Currently, the patient is on an unknown nasal spray PRN, cetirizine (zyrtec) 10 mg daily (last used today), and benadryl PRN (most days of the week) which does not provide adequate relief. The patient does have a history of sinus infections. PMH: only as abovePSH: tympanostomy tubesMedication Allergies: NKDAFHAsthma - paternal family (specifics unknown), momRhinitis - mom, sister, mat GFNo FH of RA, SLESHTobacco: No exposure / Does Not Smoke or VapeGrade: 11th Plays SoftballEnvironmental HistoryLives in a house w/ central air/forced heat, w/o evidence of mold/water damageFlooring in Bedroom: hard flooringPets: dogs x 2 (sleep in patient's room) Functional Status Date Functional Assessmen t No Information Instructions Date Instruction Additional Infor jackie - start Flonase 2 sp rays each nostril daily- Please remember to point the nasal spray away from the nasal septum, up and outwards towards the top of the ears on both sides- if nose bleeding occurs, please hold the nasal spray for 2-3 days to allow for healing of the nasal tissue (you may use nasal saline gel or vaseline on a q-tip to help heal the tissue), then restart the nasal spray.- If nose bleeding recurs, please stop the nasal spray and contact our office to set up an appointment for further guidance Related to Chronic rhinitis Giving encouragement to exercise Related to Body mass index [BMI] 31.0-31.9, adult Assessments Type Assessment Date No Information Patient Care Teams Name Effective Dates (start - stop) Status Members No Information
--- OUTSIDE RECORDS SUMMARY | 2025-03-05 00:39 | XMS_ITS | Encounter Summary ---
Author Organization [facility] Address [address] [place] [address] Care Team Providers Care Surgical Assistant Name Role Phone Levon Mitchell DO Primary Care Provider [phone] Encounter Details Date Type Department Care Team (Late st Contact Info) Description 04/15/2006 Outpatient Historical [facility] - [address] [place] [address] [place] [address] [place] [phone] Social History Tobacco Use Types Packs/Day Years Used Date Smoking Tobacco: Never Assessed Comments Unknown Sex and Gender Information Value Date Recorded Sex Assigned at Not on file Legal Sex Female 4:46 AM CELLARS SUPERVISOR Gender Identity Not on file Sexual Orientation Not on file documented as of this encounter Plan of Treatment Not on file documented as of this encounter Visit Diagnoses Not on filedocumented in this encounter Additional Health Concerns Infection Onset Date Last Indicated Resolved Time R/O COVID-19 08/21/2021 08/21/2021 08/22/2021 8:40 PM CELLARS SUPERVISOR COVID-19 08/21/2021 08/21/2021 09/20/2021 1:16 AM CELLARS SUPERVISOR documented as of this encounter Care Teams Surgical Assistant Relationship Specialty Start Date End Date Levon Mitchell DO PCP - General Pediatrics 12/22/09 documented as of this encounter
--- OUTSIDE RECORDS SUMMARY | 2025-03-05 00:39 | XMS_ITS | Encounter Summary ---
Author Organization [facility] Address [address] [place] [address] Care Team Providers Care Special Trackwork Blacksmith Name Role Phone Levon Mitchell DO Primary Care Provider [phone] Encounter Details Date Type Department Care Team (Late st Contact Info) Description 06/20/2007 Outpatient Historical [facility] Pediatrics - [address] [place] [address] [place] [address] [place] [phone] Social History Tobacco Use Types Packs/Day Years Used Date Smoking Tobacco: Never Assessed Comments Unknown Sex and Gender Information Value Date Recorded Sex Assigned at Not on file Legal Sex Female 4:46 AM INTERNET MARKETING STRATEGIST Gender Identity Not on file Sexual Orientation Not on file documented as of this encounter Plan of Treatment Not on file documented as of this encounter Visit Diagnoses Not on filedocumented in this encounter Additional Health Concerns Infection Onset Date Last Indicated Resolved Time R/O COVID-19 08/21/2021 08/21/2021 08/22/2021 8:40 PM INTERNET MARKETING STRATEGIST COVID-19 08/21/2021 08/21/2021 09/20/2021 1:16 AM INTERNET MARKETING STRATEGIST documented as of this encounter Care Teams Special Trackwork Blacksmith Relationship Specialty Start Date End Date Levon Mitchell DO PCP - General Pediatrics 12/22/09 documented as of this encounter
--- OUTSIDE RECORDS SUMMARY | 2025-03-05 00:39 | XMS_ITS | Encounter Summary ---
Author Organization [facility] Address [address] [place] [address] Care Team Providers Care Railroad Firer/Fireman Name Role Phone Levon Mitchell DO Primary Care Provider [phone] Encounter Details Date Type Department Care Team (Late st Contact Info) Description 05/23/2007 Orders Only [facility] - [place] [address] [place] [address] [place] [phone] [place] [address] [place] [phone] Social History Tobacco Use Types Packs/Day Years Used Date Smoking Tobacco: Never Assessed Comments Unknown Sex and Gender Information Value Date Recorded Sex Assigned at Not on file Legal Sex Female 4:46 AM PAINT LABORATORY TECHNICIAN Gender Identity Not on file Sexual Orientation Not on file documented as of this encounter Plan of Treatment Not on file documented as of this encounter Visit Diagnoses Not on filedocumented in this encounter Additional Health Concerns Infection Onset Date Last Indicated Resolved Time R/O COVID-19 08/21/2021 08/21/2021 08/22/2021 8:40 PM PAINT LABORATORY TECHNICIAN COVID-19 08/21/2021 08/21/2021 09/20/2021 1:16 AM PAINT LABORATORY TECHNICIAN documented as of this encounter Care Teams Railroad Firer/Fireman Relationship Specialty Start Date End Date Levon Mitchell DO PCP - General Pediatrics 12/22/09 documented as of this encounter
[2025-03-05 01:01] LABS: Alanine Aminotransferase 27 U/L (6-35); Albumin Level 4.5 g/dL (3.7-5.6); Alkaline Phosphatase 52 U/L (45-116); Anion Gap 11 mmol/L (4-12); Aspartate Amino Transferase 26 U/L (14-36); Bilirubin,Total 0.3 mg/dL (0.2-1.3); Blood Urea Nitrogen 17 mg/dL (8-21); Calcium 9.7 mg/dL (8.9-10.7); Carbon Dioxide 21 mmol/L (22-30); Chloride 105 mmol/L (98-107); Estimated Glomerular Filt Rate > 60; Glucose 99 mg/dL (65-110); Lipase 201 U/L (23-300); Potassium 3.9 mmol/L (3.4-5.0); Sodium 137 mmol/L (134-143); Total Protein 8.1 g/dL (6.3-8.6)
[2025-03-05 01:27] LABS: BEDSIDEPREGUCG Negative (Negative)
[2025-03-05] MEDS: KETOROLAC 15 MG/ML VIAL (*BKC) IV PUSH (01:31)
[2025-03-05 01:36] LABS: Add Urine Microscopic? YES; Appearance Urine Clear (Clear); Glucose Urine UA Negative (Negative); Leukocyte Esterase Ur Negative LEU/UL (Negative); Nitrate Urine Negative (Negative); Non Pathogenic Casts 0-2; Specific Grav Ur 1.029 (1.001-1.035)
[2025-03-05 01:42] LABS: Hematocrit 38.5 % (37.0-47.0); Hemoglobin 12.9 g/dL (12.0-15.0); Immature Granulocyte Percent A 0.5 % (0-0.5); Lymphocytes Absolute Auto 4.25 K/mm3 (0.9-3.2); Mean Corpuscular HGB Conc 33.5 g/dl (32-36); Mean Corpuscular Hemoglobin 28.1 pg (26-34); Mean Corpuscular Volume 83.9 fl (80-100); Nucleated Red Blood Cells Absolute Auto 0.000 K/mm3 (0.0-0.012); Nucleated Red Blood Cells Perc 0.0 % (0.0-0.2); Platelet Count Result 260 k/mm3 (150-375); Red Blood Count 4.59 M/mm3 (4.2-5.4); White Blood Count 12.0 K/mm3 (4.5-10.0)
--- NOTE | 2025-03-05 01:53 | ED.ABDPAIN ---
HPI - Abdominal Pain General Chief Complaint: Abdominal Pain Stated Complaint: abd pain, headache, back pain Time Seen by Provider: 03/05/25 00:21 History of Present Illness HPI narrative: 19-year-old otherwise healthy female with history of migraines presenting to the emergency depart with lower abdominal pain, right flank pain right and back pain. States that the symptoms are associated with cramping sensations that started last night, intermittently worsening and she has some associated lightheadedness. She states she has had symptoms like this in the past and was told that she had some high white cells previously but no diagnostic findings and she did not get any kind imaging results. States this feels similar to that episode but she never found out what the cause was. No urinary complaints such as dysuria, foul odor, trouble peeing. No fever, chills, no history of kidney stones or traumatic injuries. Denies any vaginal bleeding or spotting. Denies any chance of . No history of urinary infections. Related Data Allergies Allergy/AdvReac Type Severity Reaction Status Date / Time No Known Allergies Allergy Verified 03/04/25 20:44 Review of Systems Review of Systems: As reviewed above in HPI Exam Narrative: GENERAL: [Well-appearing, well-nourished, and in no acute distress.] HEAD: [Normocephalic, atraumatic.] EYES: [PERRLA and EOMI.] ENT: Nares clear, no rhinorrhea or epistaxis. Mucous membranes moist. NECK: Supple. CHEST: [Clear to auscultation. No respiratory distress.] HEART: [Regular rate and rhythm]. No murmur heard. [Normal peripheral pulses.] ABDOMEN: [Soft, nondistended], reproducible tenderness along the flanks and CVA region, mild tenderness on the distribution of the right flank into the right lower quadrant, [No rigidity or guarding] EXTREMITIES: Normal range of motion. [No edema.] SKIN: Warm, dry, no rash. NEURO: [No focal deficits]. Alert and oriented [x3.] PSYCH: [Normal mood and affect.] Course Vital Signs Vital signs: Vital Signs Temperature 36.5 C 03/04/25 20:30 Pulse Rate 103 H 03/04/25 20:30 Respiratory Rate 16 03/04/25 20:30 Blood Pressure 150/100 H 03/04/25 20:30 Pulse Oximetry 99 03/04/25 20:30 Oxygen Delivery Room Air 03/04/25 20:30 Temperature 36.5 C 03/04/25 20:30 Pulse Rate 105 H 03/05/25 04:15 Respiratory Rate 17 03/05/25 04:15 Blood Pressure 143/84 H 03/05/25 04:15 Pulse Oximetry 100 03/05/25 04:15 Oxygen Delivery Room Air 03/05/25 00:30 MDM - Abdominal Pain MDM Narrative Medical decision making narrative: 19-year-old otherwise healthy female with history of migraines presenting to the emergency depart with lower abdominal pain, right flank pain right and back pain. States that the symptoms are associated with cramping sensations that started last night, intermittently worsening and she has some associated lightheadedness. She states she has had symptoms like this in the past and was told that she had some high white cells previously but no diagnostic findings and she did not get any kind imaging results. States this feels similar to that episode but she never found out what the cause was. No urinary complaints such as dysuria, foul odor, trouble peeing. No fever, chills, no history of kidney stones or traumatic injuries. Denies any vaginal bleeding or spotting. Denies any chance of . No history of urinary infections. Patient has reproducible tenderness along the CVA on the back, radiating towards the right flank and into the right lower quadrant. No rebound or guarding, no signs of peritonitis. No fever chills and she has normal vital signs with any tachycardia, fever, hypoxia. Normal blood pressure. No urinary complaints. Differential is broad at this time but does include kidney stone, urinary tract infection, pyelonephritis, less likely ovarian pathology. Appendicitis, cholecystitis also possible but less likely without fever or other GI symptoms. CBC, CMP, lipase, urinalysis and test ordered, she was given Toradol and fluids. Patient's laboratory studies do show leukocytosis, urinalysis has some bacteria and white cells but also some squamous cell so unclear if this is infection or contaminated sample. Negative test. Discussed next steps with the patient including risks and benefits of a CT scan for further evaluation and she would like to proceed with the scan. CT of the abdomen pelvis without contrast was ordered for further evaluation. CT scan shows no acute intra-abdominal process. Patient will be treated for mild urinary tract infection with course of Keflex. Patient discharged home with outpatient follow-up. Medical Records Attestation: I reviewed the patient's medical records. Lab Data Attestation: I reviewed the patient's lab results. 03/05/25 00:47 03/05/25 00:47 Labs: Lab Results 03/05/25 03/05/25 03/05/25 Range/Units 00:47 01:01 01:04 WBC 12.0 H (4.5-10.0) K/mm3 RBC 4.59 (4.2-5.4) M/mm3 Hgb 12.9 (12.0-15.0) g/dL Hct 38.5 (37.0-47.0) % MCV 83.9 (80-100) fl MCH 28.1 (26-34) pg MCHC 33.5 (32-36) g/dl RDW 12.7 (11.5-14.5) % Plt Count 260 (150-375) k/mm3 MPV 11.7 H (7.4-10.4) fl Immature Gran % (Auto) 0.5 (0-0.5) % Neut % (Auto) 55.8 (45.5-73.1) % Lymph % (Auto) 35.4 (18.3-44.2) % [place] % (Auto) 5.6 (2.6-8.5) % Eos % (Auto) 2.2 (0-4.4) % Baso % (Auto) 0.5 (0.2-1.2) % Lymph # (Auto) 4.25 H (0.9-3.2) K/mm3 [place] # (Auto) 0.7 H (0.1-0.6) K/mm3 Eos # (Auto) 0.3 (0-0.3) K/mm3 Baso # (Auto) 0.1 (0.0-0.1) K/mm3 Abs Immat Gran (auto) 0.06 H (0.00-0.031) K/mm3 Absolute Neuts (auto) 6.7 (1.3-6.7) K/mm3 Absolute Nucleated RBC 0.000 (0.0-0.012) K/mm3 Nucleated RBC % 0.0 (0.0-0.2) % Sodium 137 (134-143) mmol/L Potassium 3.9 (3.4-5.0) mmol/L Chloride 105 (98-107) mmol/L Carbon Dioxide 21 L (22-30) mmol/L Anion Gap 11 (4-12) mmol/L BUN 17 (8-21) mg/dL Creatinine 0.78 (0.7-1.0) mg/dL Estim Creat Clear Calc Not Reportable Estimated GFR > 60 (59 - ) Glucose 99 (65-110) mg/dL Calcium 9.7 (8.9-10.7) mg/dL Total Bilirubin 0.3 (0.2-1.3) mg/dL AST 26 (14-36) U/L ALT 27 (6-35) U/L Alkaline Phosphatase 52 (45-116) U/L Total Protein 8.1 (6.3-8.6) g/dL Albumin 4.5 (3.7-5.6) g/dL Lipase 201 (23-300) U/L Urine Color Yellow (Yellow) Urine Appearance Clear (Clear) Urine pH 6.0 (5.0-9.0) Ur Specific [place] 1.029 (1.001-1.035) Urine Protein Trace (Negative) mg/dL Urine Glucose (UA) Negative (Negative) mg/dL Urine Ketones Negative (Negative) mg/dL Ur Blood (Man) Negative (Negative) Urine Nitrate Negative (Negative) Urine Bilirubin Negative (Negative) Urine Urobilinogen 1.0 (<2.0) mg/dL Leukocyte Esterase Rfl Negative (Negative) MIRIAM/UL Urine RBC 0-2 (0-2) /hpf Urine WBC 6-10 H (0-3) /hpf Ur Squamous Epith Cells Few (Few) /hpf Urine Bacteria 1+ H /hpf Urine Casts 0-2 POC Urine HCG, Qual Negative (Negative) Imaging Data Attestation: I personally reviewed and interpreted this imaging study as follows: My impression: No acute intra-abdominal process Discharge Plan Discharge Clinical Impression: Urinary tract infection Patient Disposition: Home Condition: Stable Instructions: Antibiotic Form, Urinary Tract Infection in Women (DC) Additional Instructions: CT scan does not show any acute intra-abdominal process. Urinalysis does have some bacteria and white blood cells, mild urinary infection likely. Your laboratory studies otherwise are normal. We will treat this with a short course of antibiotics. Follow-up with regular doctor. Return with any emergent concerns Patient Language: Martiniquais Prescriptions: New cephalexin 500 mg capsule 500 mg PO Q12H 5 Days Qty: 10 0RF Follow-up/Referrals: PHYSICIAN NOT ON STAFF,NONSTAFF [Primary Care Provider] - Time of Disposition: 04:56
[2025-03-05 01:58] VITALS: BP 141/84; PULSE 94; RESP 16; O2SAT 100
[2025-03-05] MEDS: LACTATED RINGERS 1,000 ML 999 ML IV CONT (01:58)
[2025-03-05 04:15] VITALS: BP 143/84; PULSE 105; RESP 17; O2SAT 100
[2025-03-05 05:22] VITALS: BP 135/85; PULSE 95; RESP 17; TEMP 36.7; O2SAT 100
== END 2025-03-05 05:24 | disposition home or self-care (01) ==
PROVIDERS: Emergency Provider Student in an Organized Health Care Education/Training Program
DX: N39.0 Urinary tract infection, site not specified (principal)
CPT/HCPCS: 36415; 74176; 80053; 81001; 81025; 83690; 85025; 96361; 96374; 99284; J1885; J7120

== ENCOUNTER 2025-08-10 16:12 | Emergency (ER) | payer SELFPAY ==
--- NOTE | ~2025-08-10 | CT_ITS ---
EXAMINATION: CT BRAIN W/O DATE: 08/10/2025 18:14 INDICATION: Headache. Paresthesias. TECHNIQUE: Computed tomography (CT) of the head was performed without intravenous contrast. The dose-length product was 605.33 mGy-cm. Automated exposure control and iterative reconstruction technique were employed. COMPARISON: No prior studies for comparison. FINDINGS: Normal brain parenchymal volume for age. Normal cornejo-white differentiation. No acute intracranial hemorrhage, infarction, mass or mass effect. No ventriculomegaly or midline shift. Midline sagittal images demonstrate a normal corpus callosum, craniovertebral junction and sella turcica. Basilar cisterns are patent. There is mucosal thickening of the maxillary sinuses. Mastoids are pneumatized. No depressed skull fractures. IMPRESSION: 1. No acute intracranial abnormality. 2: Moderate maxillary sinus disease. Reviewed, dictated and finalized at location O. ER PILER
[2025-08-10 16:29] VITALS: BP 140/86; PULSE 96; RESP 16; TEMP 36.4; O2SAT 99
--- NOTE | 2025-08-10 18:04 | ED.GENADULT ---
HPI - General Adult General Chief complaint: Extremity Problem,Nontraumatic <Marianne Dumont PA-C - Last Filed: 08/11/25 17:13> Stated complaint: b/l hand and feet tingling <Marianne Dumont PA-C - Last Filed: 08/11/25 17:13> Time Seen by Provider: 08/10/25 18:04 <Marianne Dumont PA-C - Last Filed: 08/11/25 17:13> Focused HPI: This is a 19 year old female that presents to the ER for paresthesias. Reports she was at work and her hands started to get tingling. Reports then her feet started tingling. She then got a headache. Feels like her blood pressure is high. GENERAL: Well-appearing, well-nourished, and in no acute distress. HEAD: Normocephalic, atraumatic. CHEST: Clear to auscultation. ?No respiratory distress. HEART: Regular rate and rhythm.? NEURO: ?Alert and oriented x3. Patient screened in triage and initial orders placed.? ?Additional care and disposition to be based upon?diagnostic testing and treatment. <Marianne Dumont PA-C - Last Filed: 08/11/25 17:13> History of Present Illness HPI narrative: patient 19-year-old female presents emergency department with chief complaint of paresthesias to both hands and both feet patient states she was at work had a headache and then noticed that she had tingling in her hands patient also reported tingling in her feet patient reports she has history of migraines patient reports no weakness in arms or legs <Hank Francois MD - Last Filed: 08/10/25 22:27> Related Data Allergies/adverse reactions: Allergies Allergy/AdvReac Type Severity Reaction Status Date / Time No Known Allergies Allergy Verified 08/10/25 16:32 <Marianne Dumont PA-C - Last Filed: 08/11/25 17:13> Review of Systems Review of Systems: A 10 system review of systems was completed on the patient and is negative except for what is stated in the HPI. Nursing and ancillary documentation was reviewed. <Hank Francois MD - Last Filed: 08/10/25 22:27> PMFSH Past Medical History Medical History: Medical History Migraine <Marianne Dumont PA-C - Last Filed: 08/11/25 17:13> Exam Narrative: GENERAL: Well-appearing, well-nourished, and in no acute distress. HEAD: Normocephalic, atraumatic. EYES: PERRLA and EOMI. ENT: Nares clear, no rhinorrhea or epistaxis. Mucous membranes moist. NECK: Supple. CHEST: Clear to auscultation. No respiratory distress. HEART: Regular rate and rhythm. No murmur heard. Normal peripheral pulses. ABDOMEN: Soft, nontender, nondistended, normal active bowel sounds. EXTREMITIES: Normal range of motion. No edema. SKIN: Warm, dry, no rash. NEURO: No focal deficits. Alert and oriented x3. PSYCH: Normal mood and affect. <Hank Francois MD - Last Filed: 08/10/25 22:27> Course Vital Signs Vital signs: Vital Signs Temperature 97.6 F 08/10/25 16:29 Pulse Rate 96 08/10/25 16:29 Respiratory Rate 16 08/10/25 16:29 Blood Pressure 140/86 08/10/25 16:29 Pulse Oximetry 99 08/10/25 16:29 Oxygen Delivery Room Air 08/10/25 16:29 Temperature 98.5 F 08/10/25 23:38 Pulse Rate 93 08/10/25 23:38 Respiratory Rate 18 08/10/25 23:38 Blood Pressure 128/78 08/10/25 23:38 Pulse Oximetry 97 08/10/25 23:38 Oxygen Delivery Room Air 08/10/25 19:46 <Marianne Dumont PA-C - Last Filed: 08/11/25 17:13> Vital Signs Temperature 97.6 F 08/10/25 16:29 Pulse Rate 96 08/10/25 16:29 Respiratory Rate 16 08/10/25 16:29 Blood Pressure 140/86 08/10/25 16:29 Pulse Oximetry 99 08/10/25 16:29 Oxygen Delivery Room Air 08/10/25 16:29 Temperature 98.5 F 08/10/25 23:38 Pulse Rate 93 08/10/25 23:38 Respiratory Rate 18 08/10/25 23:38 Blood Pressure 128/78 08/10/25 23:38 Pulse Oximetry 97 08/10/25 23:38 Oxygen Delivery Room Air 08/10/25 19:46 <Hank Francois MD - Last Filed: 08/10/25 22:27> MDM Differential Diagnosis Differential Diagnosis: differential diagnosis includes electrolyte abnormality, peripheral neuropathy, intracranial hemorrhage, migraine headache the patient was treated with migraine cocktail the patient did have a CT head that showed no acute abnormalities electrolytes were obtained that showed a potassium of 4.0 patient did have a slightly decreased magnesium 1.7 the patient received a dose of magnesium as well as the migraine cocktail and reports that her symptoms <Hank Francois MD - Last Filed: 08/10/25 22:27> Lab Data Result diagrams: 08/10/25 21:04 08/10/25 21:04 <Marianne Dumont PA-C - Last Filed: 08/11/25 17:13> Labs: Lab Results 08/10/25 Range/Units 21:04 WBC 10.2 H (4.5-10.0) K/mm3 RBC 5.15 (4.2-5.4) M/mm3 Hgb 14.2 (12.0-15.0) g/dL Hct 41.7 (37.0-47.0) % MCV 81.0 (80-100) fl MCH 27.6 (26-34) pg MCHC 34.1 (32-36) g/dl RDW 12.8 (11.5-14.5) % Plt Count 283 (150-375) k/mm3 MPV 10.7 H (7.4-10.4) fl Immature Gran % (Auto) 0.3 (0-0.5) % Neut % (Auto) 55.3 (45.5-73.1) % Lymph % (Auto) 36.2 (18.3-44.2) % [place] % (Auto) 5.3 (2.6-8.5) % Eos % (Auto) 2.3 (0-4.4) % Baso % (Auto) 0.6 (0.2-1.2) % Lymph # (Auto) 3.69 H (0.9-3.2) K/mm3 [place] # (Auto) 0.5 (0.1-0.6) K/mm3 Eos # (Auto) 0.2 (0-0.3) K/mm3 Baso # (Auto) 0.1 (0.0-0.1) K/mm3 Abs Immat Gran (auto) 0.03 (0.00-0.031) K/mm3 Absolute Neuts (auto) 5.6 (1.3-6.7) K/mm3 Absolute Nucleated RBC 0.000 (0.0-0.012) K/mm3 Nucleated RBC % 0.0 (0.0-0.2) % Sodium 136 (134-143) mmol/L Potassium 4.0 (3.4-5.0) mmol/L Chloride 104 (98-107) mmol/L Carbon Dioxide 23 (22-30) mmol/L Anion Gap 9 (4-12) mmol/L BUN 13 (8-21) mg/dL Creatinine 0.69 L (0.7-1.0) mg/dL Estim Creat Clear Calc 158 ml/min Estimated GFR > 60 (59 - ) Glucose 97 (65-110) mg/dL Calcium 9.2 (8.9-10.7) mg/dL Magnesium 1.7 (1.6-2.3) mg/dL Total Bilirubin 0.5 (0.2-1.3) mg/dL AST 33 (14-36) U/L ALT 41 H (6-35) U/L Alkaline Phosphatase 79 (45-116) U/L Total Protein 8.4 (6.3-8.6) g/dL Albumin 4.6 (3.7-5.6) g/dL Urine Color Yellow (Yellow) Urine Appearance Cloudy H (Clear) Urine pH 5.0 (5.0-9.0) Ur Specific [place] 1.017 (1.001-1.035) Urine Protein Negative (Negative) mg/dL Urine Glucose (UA) Negative (Negative) mg/dL Urine Ketones Negative (Negative) mg/dL Ur Blood (Man) Negative (Negative) Urine Nitrate Negative (Negative) Urine Bilirubin Negative (Negative) Urine Urobilinogen 0.2 (<2.0) mg/dL Leukocyte Esterase Rfl Negative (Negative) MIRIAM/UL Urine RBC 0-2 (0-2) /hpf Urine WBC 0-5 (0-3) /hpf Ur Squamous Epith Cells Few (Few) /hpf Urine Bacteria Rare /hpf Urine Casts 0-2 <Marianne Dumont PA-C - Last Filed: 08/11/25 17:13> Lab Results 08/10/25 Range/Units 21:04 WBC 10.2 H (4.5-10.0) K/mm3 RBC 5.15 (4.2-5.4) M/mm3 Hgb 14.2 (12.0-15.0) g/dL Hct 41.7 (37.0-47.0) % MCV 81.0 (80-100) fl MCH 27.6 (26-34) pg MCHC 34.1 (32-36) g/dl RDW 12.8 (11.5-14.5) % Plt Count 283 (150-375) k/mm3 MPV 10.7 H (7.4-10.4) fl Immature Gran % (Auto) 0.3 (0-0.5) % Neut % (Auto) 55.3 (45.5-73.1) % Lymph % (Auto) 36.2 (18.3-44.2) % [place] % (Auto) 5.3 (2.6-8.5) % Eos % (Auto) 2.3 (0-4.4) % Baso % (Auto) 0.6 (0.2-1.2) % Lymph # (Auto) 3.69 H (0.9-3.2) K/mm3 [place] # (Auto) 0.5 (0.1-0.6) K/mm3 Eos # (Auto) 0.2 (0-0.3) K/mm3 Baso # (Auto) 0.1 (0.0-0.1) K/mm3 Abs Immat Gran (auto) 0.03 (0.00-0.031) K/mm3 Absolute Neuts (auto) 5.6 (1.3-6.7) K/mm3 Absolute Nucleated RBC 0.000 (0.0-0.012) K/mm3 Nucleated RBC % 0.0 (0.0-0.2) % Sodium 136 (134-143) mmol/L Potassium 4.0 (3.4-5.0) mmol/L Chloride 104 (98-107) mmol/L Carbon Dioxide 23 (22-30) mmol/L Anion Gap 9 (4-12) mmol/L BUN 13 (8-21) mg/dL Creatinine 0.69 L (0.7-1.0) mg/dL Estim Creat Clear Calc 158 ml/min Estimated GFR > 60 (59 - ) Glucose 97 (65-110) mg/dL Calcium 9.2 (8.9-10.7) mg/dL Magnesium 1.7 (1.6-2.3) mg/dL Total Bilirubin 0.5 (0.2-1.3) mg/dL AST 33 (14-36) U/L ALT 41 H (6-35) U/L Alkaline Phosphatase 79 (45-116) U/L Total Protein 8.4 (6.3-8.6) g/dL Albumin 4.6 (3.7-5.6) g/dL Urine Color Yellow (Yellow) Urine Appearance Cloudy H (Clear) Urine pH 5.0 (5.0-9.0) Ur Specific [place] 1.017 (1.001-1.035) Urine Protein Negative (Negative) mg/dL Urine Glucose (UA) Negative (Negative) mg/dL Urine Ketones Negative (Negative) mg/dL Ur Blood (Man) Negative (Negative) Urine Nitrate Negative (Negative) Urine Bilirubin Negative (Negative) Urine Urobilinogen 0.2 (<2.0) mg/dL Leukocyte Esterase Rfl Negative (Negative) MIRIAM/UL Urine RBC 0-2 (0-2) /hpf Urine WBC 0-5 (0-3) /hpf Ur Squamous Epith Cells Few (Few) /hpf Urine Bacteria Rare /hpf Urine Casts 0-2 <Hank Francois MD - Last Filed: 08/10/25 22:27> Imaging Data Radiologist's impression: ITS Impressions Head CT 08/10/25 18:15 IMPRESSION: 1. No acute intracranial abnormality. 2: Moderate maxillary sinus disease. <Marianne Dumont PA-C - Last Filed: 08/11/25 17:13> ITS Impressions Head CT 08/10/25 18:15 IMPRESSION: 1. No acute intracranial abnormality. 2: Moderate maxillary sinus disease. <Hank Francois MD - Last Filed: 08/10/25 22:27> Critical Care Time Critical Care Time Critical Care Time: No <Marianne Dumont PA-C - Last Filed: 08/11/25 17:13> Discharge Plan Discharge Clinical Impression: Hypomagnesemia, Paresthesia Headache Qualifiers: Headache type: unspecified Headache chronicity pattern: acute headache Intractability: not intractable Qualified Code(s): R51.9 - Headache, unspecified <Marianne Dumont PA-C - Last Filed: 08/11/25 17:13> Patient Disposition: Home <Marianne Dumont PA-C - Last Filed: 08/11/25 17:13> Condition: Stable <Marianne Dumont PA-C - Last Filed: 08/11/25 17:13> Instructions: Antibiotic Form, Acute Headache (ED), Hypomagnesemia (ED) <Marianne Dumont PA-C - Last Filed: 08/11/25 17:13> Patient Language: Pashto <Marianne Dumont PA-C - Last Filed: 08/11/25 17:13> Prescriptions: No Action cephalexin 500 mg capsule 500 mg PO Q12H 5 Days Qty: 10 0RF <Marianne Dumont PA-C - Last Filed: 08/11/25 17:13> Follow-up/Referrals: PHYSICIAN NOT ON STAFF,NONSTAFF [Non-Staff] <Marianne Dumont PA-C - Last Filed: 08/11/25 17:13> Time of Disposition: 22:27 <Marianne Dumont PA-C - Last Filed: 08/11/25 17:13> 22:27 <Hank Francois MD - Last Filed: 08/10/25 22:27>
[2025-08-10 19:46] VITALS: BP 135/87; PULSE 98; RESP 16; TEMP 36.4; O2SAT 100
--- NOTE | 2025-08-10 19:50 | PC.NURSE ---
Dr. Francois at bedside talking with pt.
[2025-08-10 21:12] LABS: Hematocrit 41.7 % (37.0-47.0); Hemoglobin 14.2 g/dL (12.0-15.0); Immature Granulocyte Percent A 0.3 % (0-0.5); Lymphocytes Absolute Auto 3.69 K/mm3 (0.9-3.2); Mean Corpuscular HGB Conc 34.1 g/dl (32-36); Mean Corpuscular Hemoglobin 27.6 pg (26-34); Mean Corpuscular Volume 81.0 fl (80-100); Nucleated Red Blood Cells Absolute Auto 0.000 K/mm3 (0.0-0.012); Nucleated Red Blood Cells Perc 0.0 % (0.0-0.2); Platelet Count Result 283 k/mm3 (150-375); Red Blood Count 5.15 M/mm3 (4.2-5.4); White Blood Count 10.2 K/mm3 (4.5-10.0)
[2025-08-10 21:15] LABS: Add Urine Microscopic? YES; Appearance Urine Cloudy (Clear); Glucose Urine UA Negative (Negative); Leukocyte Esterase Ur Negative LEU/UL (Negative); Nitrate Urine Negative (Negative); Non Pathogenic Casts 0-2; Specific Grav Ur 1.017 (1.001-1.035)
[2025-08-10] MEDS: SODIUM CHLORIDE 0.9% IV 1,000 ML 999 ML IV CONT (21:16)
[2025-08-10 21:17] VITALS: BP 119/60; PULSE 75; RESP 16; O2SAT 98
[2025-08-10 21:21] LABS: Alanine Aminotransferase 41 U/L (6-35); Albumin Level 4.6 g/dL (3.7-5.6); Alkaline Phosphatase 79 U/L (45-116); Anion Gap 9 mmol/L (4-12); Aspartate Amino Transferase 33 U/L (14-36); Bilirubin,Total 0.5 mg/dL (0.2-1.3); Blood Urea Nitrogen 13 mg/dL (8-21); Calcium 9.2 mg/dL (8.9-10.7); Carbon Dioxide 23 mmol/L (22-30); Chloride 104 mmol/L (98-107); Estimated CRCL calculation 158 ml/min; Estimated Glomerular Filt Rate > 60; Glucose 97 mg/dL (65-110); Magnesium 1.7 mg/dL (1.6-2.3); Potassium 4.0 mmol/L (3.4-5.0); Sodium 136 mmol/L (134-143); Total Protein 8.4 g/dL (6.3-8.6)
[2025-08-10] MEDS: PROCHLORPERAZINE EDISYLATE 10 MG/2 ML VIAL IV PUSH (21:21)
[2025-08-10] MEDS: MAGNESIUM SULF 2 GM/WATER 50ML 2 GM/50 ML BAG IVPB (21:51)
[2025-08-10 23:38] VITALS: BP 128/78; PULSE 93; RESP 18; TEMP 36.9; O2SAT 97
== END 2025-08-10 23:40 | disposition home or self-care (01) ==
PROVIDERS: Emergency Provider Emergency Medicine
DX: R20.2 Paresthesia of skin (principal); E83.42 Hypomagnesemia; R51.9 Headache, unspecified; J32.0 Chronic maxillary sinusitis
CPT/HCPCS: 36415; 70450; 80053; 81001; 83735; 85025; 96361; 96365; 96366; 96375; 99284; J0780; J1200; J3475; J7030